=== PATIENT | female | born 1935 | race Hispanic/Latino ===

== ENCOUNTER 2017-12-14 16:46 | Inpatient (IN) | payer MEDICARE, OTHER ==
[2017-12-14] MEDS ORDERED: Sodium Chloride 0.9% 500 ML IV STA (17:43)
[2017-12-14] MEDS ORDERED: Pantoprazole 40 MG in Sodium Chloride 0.9% 100 ML IVPB SCH (17:45)
--- NOTE | 2017-12-14 17:45 | ED PDOC ---
HPI: General Adult Time Seen by Provider: 12/14/17 17:22 Chief Complaint (Nursing): Abdominal Pain Chief Complaint (Provider): Black stool History Per: Patient History/Exam Limitations: no limitations Onset/Duration Of Symptoms: Days (2 weeks) Current Symptoms Are (Timing): Still Present Additional Complaint(s): Pt. with black stool for 2 weeks. Getting off and on light-headed. No chest pain, dyspnea, weakness, cough. No abd pain. No fever. Ambulating with no issues. Past Medical History Reviewed: Nursing Documentation, Vital Signs Vital Signs: Last Vital Signs Temp 98.6 F 12/14/17 17:01 Pulse 94 H 12/14/17 17:01 Resp 16 12/14/17 17:01 BP 116/76 12/14/17 17:01 Pulse Ox 96 12/14/17 18:41 - Medical History PMH: HTN - Family History Family History: States: Unknown Family Hx - Living Arrangements Living Arrangements: With Family - Social History Alcohol: None Drugs: Denies - Home Medications Home Medications: Ambulatory Orders Medication Instructions Recorded Calcium Carbonate/Vitamin D3 1 tab PO BID 12/14/17 [Caltrate 600 Plus D3 Tablet] Furosemide [Lasix] 40 mg PO DAILY 12/14/17 Isosorbide Mononitrate [Ismo] 20 mg PO Q12H 12/14/17 Letrozole [Femara] 2.5 mg PO DAILY 12/14/17 Propranolol HCl [Propranolol HCl 80 mg PO Q12H 12/14/17 ER] Ramipril [Altace] 5 mg PO DAILY 12/14/17 Rosuvastatin Calcium [Crestor] 10 mg PO DAILY 12/14/17 - Allergies Allergies/Adverse Reactions: Allergies Allergy/AdvReac Type Severity Reaction Status Date / Time No Known Allergies Allergy Verified 12/14/17 17:01 Review of Systems ROS Statement: Except As Marked, All Systems Reviewed And Found Negative Gastrointestinal: Positive for: Melena Neurological: Positive for: Dizziness Physical Exam - Reviewed Nursing Documentation Reviewed: Yes Vital Signs Reviewed: Yes - Physical Exam Appears: Positive for: Uncomfortable Head Exam: Positive for: ATRAUMATIC, NORMAL INSPECTION, NORMOCEPHALIC Skin: Positive for: Normal Color, Warm, DRY Eye Exam: Positive for: EOMI, Normal appearance, PERRL ENT: Positive for: Normal ENT Inspection Neck: Positive for: Normal, Painless ROM Cardiovascular/Chest: Positive for: Regular Rate, Rhythm Respiratory: Positive for: CNT, Normal Breath Sounds Gastrointestinal/Abdominal: Positive for: Normal Exam, Bowel Sounds, Soft. Negative for: Tenderness Back: Positive for: Normal Inspection. Negative for: L CVA Tenderness, R CVA Tenderness Rectal: Positive for: Black Stool. Negative for: Tenderness Extremity: Positive for: Normal ROM. Negative for: Tenderness, Pedal Edema Neurologic/Psych: Positive for: Alert, Oriented - Laboratory Results Result Diagrams: 12/14/17 18:15 12/14/17 18:15 Interpretation Of Abn Labs: 10.8 hg; 42 bun - ECG ECG: Positive for: Interpreted By Me, Viewed By Me ECG Rhythm: Positive for: Sinus Rhythm, Nonspecific Changes O2 Sat by Pulse Oximetry: 96 Pulse Ox Interpretation: Normal - Radiology X-Ray: Read By Radiologist X-Ray Interpretation: No Acute Disease - Progress ED Course And Treament: 1926: Stable. Spoke with Tyson for Dr. Polanco. Will admit tele obs. GI consult. AAOx3. - Critical Care Total Time (In Min): 30 Documented Critical Care: Time excludes all time spent performint seperately billable procedures Disposition - Clinical Impression Clinical Impression: GI bleed - Patient ED Disposition Is Patient to be Admitted: Yes - Disposition Disposition Time: 19:28 Condition: FAIR - Pt Status Changed To: Hospital Disposition Of: Observation - POA Present On Arrival: None
--- NOTE | 2017-12-14 18:31 | RAD ---
HISTORY: rectal bleeding COMPARISON: 08/29/2013 FINDINGS: LUNGS: No active pulmonary disease. PLEURA: No significant pleural effusion identified, no pneumothorax apparent. CARDIOVASCULAR: Sternotomy wires. Normal heart size. OSSEOUS STRUCTURES: No significant abnormalities. VISUALIZED UPPER ABDOMEN: Normal. OTHER FINDINGS: None. IMPRESSION: No active disease.
[2017-12-14 18:32] LABS: BASO # 0.1 K/uL (0.0-0.2); BASO % 0.9 % (0.0-2.0); EOS # 0.5 K/uL (0.0-0.7); HEMOGLOBIN 10.8 g/dL (12.0-16.0); LYMPH # 2.5 K/uL (1.0-4.3); LYMPH % 25.3 % (20.0-40.0); MEAN CELL VOLUME 87.4 fl (81.0-99.0); MEAN CORPUSCULAR HEMOGLOBIN 29.1 pg (27.0-31.0); MEAN CORPUSCULAR HGB CONC 33.3 g/dL (33.0-37.0); MEAN PLATELET VOLUME 8.3 fl (7.2-11.7); MONO # 0.4 K/uL (0.0-0.8); MONO % 4.3 % (0.0-10.0); NEUT # 6.4 K/uL (1.8-7.0); NEUT % 64.5 % (50.0-75.0); NRBC % 0.1 % (0.0-0.0); RBC 3.7 Mil/uL (3.80-5.20); RED CELL DISTRIBUTION WIDTH 13.5 % (11.5-14.5); WHITE BLOOD COUNT 9.9 K/uL (4.8-10.8)
[2017-12-14 18:49] LABS: TROPONIN I 0.018 ng/mL (0.00-0.120)
[2017-12-14 18:52] LABS: ALB/GLOB RATIO 1.5 (1.0-2.1); ALBUMIN 3.9 g/dL (3.5-5.0); CALCIUM 10.3 mg/dL (8.4-10.2)
[2017-12-14 19:08] LABS: INR 1.1 (0.9-1.2); PARTIAL THROMBOPLASTIN TIME 27.5 Seconds (25.6-37.1); PROTHROMBIN TIME 12.2 Seconds (9.8-13.1)
[2017-12-14] MEDS ORDERED: PROPRANOLOL HCL 80 MG PO SCH (20:30)
[2017-12-14] MEDS: Pantoprazole 40 MG in Sodium Chloride 0.9% 100 ML IVPB SCH (23:58)
[2017-12-15] MEDS: Pantoprazole 40 MG in Sodium Chloride 0.9% 100 ML IVPB SCH (05:32)
[2017-12-15 06:36] LABS: BASO # 0.1 K/uL (0.0-0.2); BASO % 1.1 % (0.0-2.0); EOS # 0.5 K/uL (0.0-0.7); EOS % 5.8 % (0.0-4.0); HEMOGLOBIN 8.5 g/dL (12.0-16.0); LYMPH # 2.3 K/uL (1.0-4.3); LYMPH % 26.5 % (20.0-40.0); MEAN CELL VOLUME 87.6 fl (81.0-99.0); MEAN CORPUSCULAR HEMOGLOBIN 29.4 pg (27.0-31.0); MEAN CORPUSCULAR HGB CONC 33.5 g/dL (33.0-37.0); MEAN PLATELET VOLUME 8.4 fl (7.2-11.7); MONO # 0.6 K/uL (0.0-0.8); MONO % 6.7 % (0.0-10.0); NEUT # 5.2 K/uL (1.8-7.0); NEUT % 59.9 % (50.0-75.0); NRBC % 0.1 % (0.0-0.0); RBC 2.89 Mil/uL (3.80-5.20); RED CELL DISTRIBUTION WIDTH 13.2 % (11.5-14.5); WHITE BLOOD COUNT 8.7 K/uL (4.8-10.8)
[2017-12-15 06:47] LABS: ALB/GLOB RATIO 1.2 (1.0-2.1); ALBUMIN 2.9 g/dL (3.5-5.0); CALCIUM 8.8 mg/dL (8.4-10.2)
[2017-12-15] MEDS ORDERED: Patient's Own Med (Calcium Carbonate/Vitamin D3 [Caltrate 600 Plus D3 Tablet] 1 TAB) PO SCH (09:00)
--- NOTE | 2017-12-15 09:37 | CP.PCM.PCO ---
Physician Communication Note - Physician Communication Note Physician Communication Note: admitted to this provider in error. pt of dr zaidi, service changed
--- NOTE | 2017-12-15 09:42 | CP.PCM.HP ---
History of Present Illness - History of Present Illness History of Present Illness: Pt. with black/bloody stool for 2 weeks. Getting off and on light-headed. No chest pain, dyspnea, weakness, cough. No abd pain. No fever. Ambulating with no issues. PMH: Hypertension Acute [place] 03/02/1985 Prosthetic AV 06/08/2004 CA Breast 2013 Hyperlipidemia Hgb: 8.5 GI consult Fidel Mccormack Present on Admission - Present on Admission Any Indicators Present on Admission: No Past Patient History - Past Medical History & Family History Past Medical History?: Yes - Past Social History Smoking Status: Never Smoked - CARDIAC Hx Cardiac Disorders: Yes Hx Congestive Heart Failure: Yes Hx Heart Attack: Yes Hx Hypercholesterolemia: Yes Hx Hypertension: Yes Other/Comment: Prosthetic AV 2003 - PULMONARY Hx Respiratory Disorders: No - NEUROLOGICAL Hx Neurological Disorder: No - HEENT Hx HEENT Problems: No - RENAL Hx Chronic Kidney Disease: No - ENDOCRINE/METABOLIC Hx Endocrine Disorders: No - HEMATOLOGICAL/ONCOLOGICAL Hx Blood Disorders: No - INTEGUMENTARY Hx Dermatological Problems: No - MUSCULOSKELETAL/RHEUMATOLOGICAL Hx Musculoskeletal Disorders: No Hx Falls: No - GASTROINTESTINAL Hx Gastrointestinal Disorders: No - GENITOURINARY/GYNECOLOGICAL Hx Genitourinary Disorders: Yes Other/Comment: breast cancer with radiation treatment - PSYCHIATRIC Hx Psychophysiologic Disorder: No Hx Substance Use: No - SURGICAL HISTORY Hx Surgeries: Yes Hx Mastectomy: Yes (right) Hx Open Heart Surgery: Yes - ANESTHESIA Hx Anesthesia: Yes Hx Anesthesia Reactions: No Hx Malignant Hyperthermia: No Has any member of the family had a problem w/ anesthesia?: No Meds Allergies/Adverse Reactions: Allergies Allergy/AdvReac Type Severity Reaction Status Date / Time No Known Allergies Allergy Verified 12/14/17 17:01 Results - Vital Signs Recent Vital Signs: Last Vital Signs Temp 98.6 F 12/15/17 08:00 Pulse 67 12/15/17 08:00 Resp 20 12/15/17 08:00 BP 94/60 L 12/15/17 09:01 Pulse Ox 96 12/15/17 08:00 - Labs Result Diagrams: 12/15/17 05:00 12/15/17 05:00 Labs: Laboratory Results - last 24 hr 12/14/17 12/14/17 12/14/17 18:15 18:15 18:15 WBC 9.9 RBC 3.70 L Hgb 10.8 L D Hct 32.3 L MCV 87.4 MCH 29.1 MCHC 33.3 RDW 13.5 Plt Count 244 MPV 8.3 Neut % (Auto) 64.5 Lymph % (Auto) 25.3 [place] % (Auto) 4.3 Eos % (Auto) 5.0 H Baso % (Auto) 0.9 Neut # 6.4 Lymph # 2.5 [place] # 0.4 Eos # 0.5 Baso # 0.1 PT INR APTT Sodium 138 Potassium 3.4 L Chloride 96 L Carbon Dioxide 31 H Anion Gap 14 BUN 42 H Creatinine 1.2 Est GFR ( Amer) 52 Est GFR (Non-Af Amer) 43 Random Glucose 120 H Calcium 10.3 H Total Bilirubin 0.5 AST 19 ALT 30 Alkaline Phosphatase 55 Troponin I 0.0180 Total Protein 6.6 Albumin 3.9 Globulin 2.7 Albumin/Globulin Ratio 1.5 Stool Occult Blood Blood Type A POSITIVE Antibody Screen Negative BBK History Checked No verified bt 12/14/17 12/14/17 12/15/17 18:15 19:00 05:00 WBC 8.7 RBC 2.89 L Hgb 8.5 L D Hct 25.3 L MCV 87.6 MCH 29.4 MCHC 33.5 RDW 13.2 Plt Count 179 MPV 8.4 Neut % (Auto) 59.9 Lymph % (Auto) 26.5 [place] % (Auto) 6.7 Eos % (Auto) 5.8 H Baso % (Auto) 1.1 Neut # 5.2 Lymph # 2.3 [place] # 0.6 Eos # 0.5 Baso # 0.1 PT 12.2 INR 1.1 APTT 27.5 Sodium Potassium Chloride Carbon Dioxide Anion Gap BUN Creatinine Est GFR ( Amer) Est GFR (Non-Af Amer) Random Glucose Calcium Total Bilirubin AST ALT Alkaline Phosphatase Troponin I Total Protein Albumin Globulin Albumin/Globulin Ratio Stool Occult Blood Positive H Blood Type Antibody Screen BBK History Checked 12/15/17 05:00 WBC RBC Hgb Hct MCV MCH MCHC RDW Plt Count MPV Neut % (Auto) Lymph % (Auto) [place] % (Auto) Eos % (Auto) Baso % (Auto) Neut # Lymph # [place] # Eos # Baso # PT INR APTT Sodium 138 Potassium 3.1 L Chloride 103 Carbon Dioxide 26 Anion Gap 12 BUN 29 H Creatinine 1.1 Est GFR ( Amer) 57 Est GFR (Non-Af Amer) 47 Random Glucose 114 H Calcium 8.8 Total Bilirubin 0.4 AST 19 ALT 24 Alkaline Phosphatase 43 Troponin I Total Protein 5.4 L Albumin 2.9 L D Globulin 2.5 Albumin/Globulin Ratio 1.2 Stool Occult Blood Blood Type Antibody Screen BBK History Checked Assessment & Plan (1) GI bleed Assessment and Plan: ? CA colon ? Metastatic lesion ( CA Breast ? polyp Status: Acute (2) S/P AVR (aortic valve replacement) Status: Acute (3) Breast CA Status: Acute (4) Myocardial infarct, old Status: Acute (5) Essential (primary) hypertension Status: Acute (6) Mixed hyperlipidemia Status: Acute
[2017-12-15] MEDS ORDERED: Potassium Chloride 20 mEq/15 ml LIQ UD PO ONE (12:50)
[2017-12-15 20:54] LABS: BLOOD UREA NITROGEN 16 mg/dl (7-17); CALCIUM 9.2 mg/dL (8.4-10.2); GFR AFRICAN-AMERICAN > 60; GFR NON-AFRICAN AMERICAN 53
--- NOTE | 2017-12-16 02:17 | CON ---
DATE: 12/15/2017 REFERRING PHYSICIANS: Olaf Langston MD and Dr. Sosa. REASON FOR CONSULTATION: Melena and anemia. HISTORY OF PRESENT ILLNESS: This is a pleasant 82-year-old female with history on and off of two weeks of black stools. Patient has no pain, no nausea, no vomiting, no reflux, no heartburn. No use of NSAIDs. Currently, lying in bed comfortable in no apparent distress. PAST MEDICAL HISTORY: As above. PAST SURGICAL HISTORY: As above. MEDICATIONS: Have been reviewed. REVIEW OF SYSTEMS: All other systems have been reviewed and negative apart from the HPI. PHYSICAL EXAMINATION: VITAL SIGNS: During the hospital, grossly unremarkable. GENERAL: This is a pleasant elderly appearing female, lying comfortably in bed in no apparent distress. HEENT: Head normocephalic, atraumatic. Eyes, pupils equally reactive to light bilaterally. No conjunctival pallor or icterus. NECK: Supple. Normal range of motion. No lymphadenopathy appreciated. LUNGS: Coarse breath sounds bilaterally. HEART: S1 and S2. Regular rate and rhythm. No murmurs appreciated. ABDOMEN: Soft and nontender. Bowel sounds present. No rebound. No guarding. RECTAL: Deferred. EXTREMITIES: Pulses present bilaterally. SKIN: Warm, dry, and intact. NEUROLOGIC: A and O x3. LABORATORY DATA: All labs have been reviewed. WBC 8.7, hemoglobin 8.5, now 10.8, hematocrit of 25.3. Potassium 3.1, BUN 29, creatinine 1.1. ASSESSMENT AND PLAN: This is an 82-year-old female with melena and anemia. Plan for endoscopy in the morning. Protonix twice a day. Correct electrolytes. Thank you for the consult. Jimy Mcclure MD/ PhD cc: Dr. Sosa.
[2017-12-16 06:47] LABS: BLOOD UREA NITROGEN 11 mg/dl (7-17); CALCIUM 9.2 mg/dL (8.4-10.2); GFR AFRICAN-AMERICAN > 60; GFR NON-AFRICAN AMERICAN 60
[2017-12-16 08:23] LABS: HEMOGLOBIN 8.8 g/dL (12.0-16.0); MEAN CELL VOLUME 89.7 fl (81.0-99.0); MEAN CORPUSCULAR HGB CONC 32.3 g/dL (33.0-37.0); RBC 3.05 Mil/uL (3.80-5.20); RED CELL DISTRIBUTION WIDTH 13.5 % (11.5-14.5); WHITE BLOOD COUNT 6.4 K/uL (4.8-10.8)
--- NOTE | 2017-12-16 09:20 | PQF GENQUE ---
Dr. Mcclure, Please clarify the type of anemia: if known after the work up is completed: i.e. Blood loss anemia, acute Blood loss anemia, chronic Chronic anemia Deficiency anemia (please specify type) Due to/in/with antineoplastic chemotherapy Due to/in/with chronic kidney disease Due to/in/with kidney failure Due to/in/with neoplastic disease Iron deficiency anemia Macrocytic anemia Microcytic anemia Normocytic anemia Postoperative blood loss anemia Pernicious anemia Other anemia (please specify) Clinically unable to determine Unknown H/H:10.8/32.3->8.5/25.3->8.8/27.3 H and P: Pt. with black/bloody stool for 2 weeks. Getting off and on light- headed. Dxs. include: (1) GI bleed Assessment and Plan: ? CA colon ? Metastatic lesion ( CA Breast ? polyp Status: Acute GI consult: 82-year-old female with melena and anemia. This form is a permanent part of the medical record Clarification of your documentation is requested to better reflect the severity of illness and intensity of treatment of your patient. Indicators present Gi blood loss anemia, acute [] Specify: [] [] Specify: [] [] Specify: [] [] Specify: [] Location in the medical record that reflects the above clinical findings: [] Treatment Provided: [] PHYSICIAN'S RESPONSE Based on your medical judgment of the clinical indicators outlined above please clarify the following: [] Practitioner response [] If unable to determine, please check the box, sign and date. Present On Admission (POA) Indicator: [] Present at the time of admission [] Not present at the time of admission [] Clinically Undetermined In responding to this query, please exercise your independent professional judgment. The fact that a question is asked does not imply that any particular answer is desired or expected. Thank you for your clarification on this documentation. If you have any questions please call. * Thank you, Reena Guevara RN ext. #[phone] MTDD
--- NOTE | 2017-12-16 09:46 | PQF GENQUE ---
Dr. Mcclure, Clarification of the following Clinical Finding: "Correct Electrolytes"; please document a corresponding lissett(rafael) Clinical lab: K:3.4-->3.1->3.8 12/15: GI consult: This is an 82-year-old female with melena and anemia. Plan for endoscopy in the morning. Protonix twice a day. Correct electrolytes. 12/15: Potassium Chloride 10 meq IV Q1hr. and 20 meq PO once This form is a permanent part of the medical record Clarification of your documentation is requested to better reflect the severity of illness and intensity of treatment of your patient. Indicators present [] Specify: [] [] Specify: [] [] Specify: [] [] Specify: [] Location in the medical record that reflects the above clinical findings: [] Treatment Provided: [] PHYSICIAN'S RESPONSE Based on your medical judgment of the clinical indicators outlined above please clarify the following: [] Practitioner response [] If unable to determine, please check the box, sign and date. Present On Admission (POA) Indicator: [] Present at the time of admission [] Not present at the time of admission [] Clinically Undetermined In responding to this query, please exercise your independent professional judgment. The fact that a question is asked does not imply that any particular answer is desired or expected. Thank you for your clarification on this documentation. If you have any questions please call. * Thank you, Reena Guevara RN ext. #[phone] MTDD
--- NOTE | 2017-12-16 09:56 | PQF GENQUE ---
Dr. Langston, Please specify the type and acuity of heart failure in your progress notes: versus a hx. of CHF hx. and not a current condition 1. TYPE: Combined systolic and diastolic Heart failure with reduced ejection fraction and diastolic dysfunction Diastolic HFpEF Systolic yes HFrEF Left heart failure Right heart failure Right heart failure due to left heart failure High Output failure End stage heart failure Other (please specify) Clinically unable to determine Unknown 2. ACUITY: Acute in the past has had bouts of CHF -- resolved as out patient Chronic Acute on chronic Other (please specify) Clinically unable to determine Unknown CXR: Impression: No active disease. H and P: Hx Congestive Heart Failure: Yes In the past not POA Lasix 40 mg po daily This form is a permanent part of the medical record Clarification of your documentation is requested to better reflect the severity of illness and intensity of treatment of your patient. Indicators present [] Specify: [ Acute systolic left CHF in the past not POA [] Specify: [] [] Specify: [] [] Specify: [] Location in the medical record that reflects the above clinical findings: [] Treatment Provided: [] PHYSICIAN'S RESPONSE Based on your medical judgment of the clinical indicators outlined above please clarify the following: [xxx Practitioner response [] If unable to determine, please check the box, sign and date. Present On Admission (POA) Indicator: [] Present at the time of admission [] Not present at the time of admission NOt POA [] Clinically Undetermined In responding to this query, please exercise your independent professional judgment. The fact that a question is asked does not imply that any particular answer is desired or expected. Thank you for your clarification on this documentation. If you have any questions please call. * Thank you, Reena Guevara RN ext. #[phone] MTDD
[2017-12-16] MEDS ORDERED: Lactated Ringer's 1,000 ML IV ONE (10:13)
[2017-12-16] MEDS ORDERED: Lidocaine 2% MPF (5 ml) Inj ONE (10:32)
[2017-12-16] MEDS ORDERED: Propofol 10 mg/ml Inj (20 ML) ONE (10:32)
--- NOTE | 2017-12-16 11:36 | CP.PCM.DIS ---
Provider - Provider Date of Admission: 12/15/17 12:51 Attending physician: Olaf Langston MD Primary care physician: Sri Langston Consults: DR Mccormack Time Spent in preparation of Discharge (in minutes): 33 Diagnosis - Discharge Diagnosis (1) Duodenal ulcer with hemorrhage Status: Acute (2) GI bleed Status: Acute (3) S/P AVR (aortic valve replacement) Status: Acute (4) Breast CA Status: Acute (5) Myocardial infarct, old Status: Acute (6) Essential (primary) hypertension Status: Acute (7) Mixed hyperlipidemia Status: Acute Hospital Course - Lab Results Lab Results: Most Recent Lab Values WBC 6.4 K/uL (4.8-10.8) 12/16/17 05:50 RBC 3.05 Mil/uL (3.80-5.20) L 12/16/17 05:50 Hgb 8.8 g/dL (12.0-16.0) L 12/16/17 05:50 Hct 27.3 % (34.0-47.0) L 12/16/17 05:50 MCV 89.7 fl (81.0-99.0) D 12/16/17 05:50 MCH 29.0 pg (27.0-31.0) 12/16/17 05:50 MCHC 32.3 g/dL (33.0-37.0) L 12/16/17 05:50 RDW 13.5 % (11.5-14.5) 12/16/17 05:50 Plt Count 157 K/uL (130-400) 12/16/17 05:50 MPV 8.4 fl (7.2-11.7) 12/15/17 05:00 Neut % (Auto) 59.9 % (50.0-75.0) 12/15/17 05:00 Lymph % (Auto) 26.5 % (20.0-40.0) 12/15/17 05:00 [place] % (Auto) 6.7 % (0.0-10.0) 12/15/17 05:00 Eos % (Auto) 5.8 % (0.0-4.0) H 12/15/17 05:00 Baso % (Auto) 1.1 % (0.0-2.0) 12/15/17 05:00 Neut # 5.2 K/uL (1.8-7.0) 12/15/17 05:00 Lymph # 2.3 K/uL (1.0-4.3) 12/15/17 05:00 [place] # 0.6 K/uL (0.0-0.8) 12/15/17 05:00 Eos # 0.5 K/uL (0.0-0.7) 12/15/17 05:00 Baso # 0.1 K/uL (0.0-0.2) 12/15/17 05:00 PT 12.2 Seconds (9.8-13.1) 12/14/17 18:15 INR 1.1 (0.9-1.2) 12/14/17 18:15 APTT 27.5 Seconds (25.6-37.1) 12/14/17 18:15 Sodium 142 mmol/l (132-148) 12/16/17 05:50 Potassium 3.8 MMOL/L (3.6-5.0) 12/16/17 05:50 Chloride 108 mmol/L (98-107) H 12/16/17 05:50 Carbon Dioxide 26 mmol/L (22-30) 12/16/17 05:50 Anion Gap 12 (10-20) 12/16/17 05:50 BUN 11 mg/dl (7-17) 12/16/17 05:50 Creatinine 0.9 mg/dl (0.7-1.2) 12/16/17 05:50 Est GFR ( Amer) > 60 12/16/17 05:50 Est GFR (Non-Af Amer) 60 12/16/17 05:50 Random Glucose 101 mg/dL (65-105) 12/16/17 05:50 Calcium 9.2 mg/dL (8.4-10.2) 12/16/17 05:50 Total Bilirubin 0.4 mg/dl (0.2-1.3) 12/15/17 05:00 AST 19 U/L (14-36) 12/15/17 05:00 ALT 24 U/L (9-52) 12/15/17 05:00 Alkaline Phosphatase 43 U/L (38-126) 12/15/17 05:00 Troponin I 0.0180 ng/mL (0.00-0.120) 12/14/17 18:15 Total Protein 5.4 G/DL (6.3-8.2) L 12/15/17 05:00 Albumin 2.9 g/dL (3.5-5.0) L D 12/15/17 05:00 Globulin 2.5 gm/dL (2.2-3.9) 12/15/17 05:00 Albumin/Globulin Ratio 1.2 (1.0-2.1) 12/15/17 05:00 Stool Occult Blood Positive (NEGATIVE) H 12/14/17 19:00 Blood Type A POSITIVE 12/14/17 18:15 Antibody Screen Negative 12/14/17 18:15 BBK History Checked No verified bt 12/14/17 18:15 - Hospital Course Hospital Course: Pt. with black/bloody stool for 2 weeks. Getting off and on light-headed. No chest pain, dyspnea, weakness, cough. No abd pain. No fever. Ambulating with no issues. PMH: Hypertension Acute [place] 03/02/1985 Prosthetic AV 06/08/2004 CA Breast 2013 Hyperlipidemia Hgb: 8.5 GI consult Fidel Mccormack Upper endoscopy: Duodenal ulcer PT d/laura on Protonix 40mg BID Carafate Discharge Exam - Head Exam Head Exam: ATRAUMATIC, NORMAL INSPECTION, NORMOCEPHALIC Discharge Plan - Discharge Medications Prescriptions: Sucralfate [Carafate] 1 gm PO QID #120 dose Pantoprazole Sodium [Protonix] 40 mg PO BID #60 ect - Follow Up Plan Condition: GOOD
[2017-12-16 12:56] VITALS: RESP 20
--- NOTE | 2017-12-16 14:36 | PQF GENQUE ---
Dr. Langston, Etiology of GI Bleed: if known? i.e. due to Duodenal Ulcer : YES GI Bleed secondary to Duodenal ulcer D/C Summary: Upper endoscopy: Duodenal ulcer Discharge Diagnosis include : (1) Duodenal ulcer with hemorrhage Status: Acute (2) GI bleed Status: Acute This form is a permanent part of the medical record Clarification of your documentation is requested to better reflect the severity of illness and intensity of treatment of your patient. Indicators present [] Specify: [] [] Specify: [] [] Specify: [] [] Specify: [] Location in the medical record that reflects the above clinical findings: [] Treatment Provided: [] PHYSICIAN'S RESPONSE Based on your medical judgment of the clinical indicators outlined above please clarify the following: [] Practitioner response [] If unable to determine, please check the box, sign and date. Present On Admission (POA) Indicator: [] Present at the time of admission [] Not present at the time of admission [] Clinically Undetermined In responding to this query, please exercise your independent professional judgment. The fact that a question is asked does not imply that any particular answer is desired or expected. Thank you for your clarification on this documentation. If you have any questions please call. * Thank you, Reena Guevara RN ext. #[phone] MTDD
[2017-12-16 16:17] VITALS: BP 133/96; PULSE 99; TEMP 97.3; O2SAT 100
--- NOTE | 2017-12-16 18:32 | CARD ---
APPROVED REPORT EKG Measurement Heart [id number] <Conclusion> Sinus rhythm with premature atrial complexes with aberrant conduction Incomplete left bundle branch block ST & T wave abnormality, consider lateral ischemia Abnormal ECG
== END 2017-12-16 17:09 | disposition home or self-care (01) | DRG 378 ==
LOC: H.ER 16:46 → H.ERHOLD 19:26 → H.TEL 22:55 → OBSVTOIN 12-15 12:51
PROVIDERS: ADMIT Internal Medicine Cardiovascular Disease; ATTEND Internal Medicine Cardiovascular Disease
PROC: 0DB68ZX Excision of Stomach, Via Natural or Artificial Opening Endoscopic, Diagnostic (ICD-10-PCS; 2017-12-16)
PROC: 0DB98ZX Excision of Duodenum, Via Natural or Artificial Opening Endoscopic, Diagnostic (ICD-10-PCS; 2017-12-16)
PROC: 0DB98ZX Excision of Duodenum, Via Natural or Artificial Opening Endoscopic, Diagnostic (ICD-10-PCS; principal; 2017-12-16 10:30)
DX: K26.4 Chronic or unspecified duodenal ulcer with hemorrhage (principal); D62 Acute posthemorrhagic anemia; E78.2 Mixed hyperlipidemia; Z85.3 Personal history of malignant neoplasm of breast; I25.2 Old myocardial infarction; Z95.2 Presence of prosthetic heart valve

== ENCOUNTER 2018-09-29 16:54 | Inpatient (IN) | payer MEDICARE, OTHER ==
[2018-09-29] MEDS ORDERED: Sodium Chloride 0.9% 1,000 ML IV STA (17:15)
--- NOTE | 2018-09-29 17:21 | ED PDOC ---
HPI: General Adult Time Seen by Provider: 09/29/18 17:08 Chief Complaint (Nursing): ENT Problem History Per: Patient (Difficulty swallowing x 2 weeks assoc with decreased PO intake and 20 lb weight loss. Denies abd pain. Denies vomiting. Denies fever.) Past Medical History Vital Signs: Last Vital Signs Temp 96.7 F L 09/29/18 17:03 Pulse 113 H 09/29/18 17:03 Resp 18 09/29/18 17:03 BP 151/83 H 09/29/18 17:03 Pulse Ox 99 09/29/18 17:03 - Medical History PMH: CAD, CHF, HTN, Hypercholesterolemia Denies: Chronic Kidney Disease - Family History Family History: States: Unknown Family Hx - Home Medications Home Medications: Ambulatory Orders Medication Instructions Recorded Furosemide [Lasix] 40 mg PO DAILY 09/29/18 Propranolol [Inderal LA] 80 mg PO BID 09/29/18 RX: Isosorbide Dinitrate [Isordil] 20 mg PO BID 09/29/18 RX: Letrozole [Femara] 2.5 mg PO DAILY 09/29/18 Ramipril [Altace] 5 mg DAILY 09/29/18 Rosuvastatin Calcium [Crestor] 10 mg PO DAILY 09/29/18 - Allergies Allergies/Adverse Reactions: Allergies Allergy/AdvReac Type Severity Reaction Status Date / Time No Known Allergies Allergy Verified 09/29/18 17:03 Review of Systems ROS Statement: Except As Marked, All Systems Reviewed And Found Negative Constitutional: Positive for: Weight loss Respiratory: Positive for: Cough Gastrointestinal: Positive for: Other (Difficulty swallowing) Physical Exam - Reviewed Nursing Documentation Reviewed: Yes Vital Signs Reviewed: Yes - Physical Exam Appears: Positive for: Non-toxic, No Acute Distress Head Exam: Positive for: ATRAUMATIC, NORMAL INSPECTION, NORMOCEPHALIC Skin: Positive for: Normal Color, Warm, DRY Eye Exam: Positive for: EOMI, Normal appearance, PERRL ENT: Positive for: Normal ENT Inspection, Other (No masses) Neck: Positive for: Normal (No masses), Painless ROM Cardiovascular/Chest: Positive for: Regular Rate, Rhythm Respiratory: Positive for: CNT, Normal Breath Sounds Gastrointestinal/Abdominal: Positive for: Normal Exam, Soft Back: Positive for: Normal Inspection Extremity: Positive for: Normal ROM Neurologic/Psych: Positive for: Alert, Oriented. Negative for: Motor/Sensory Deficits - Laboratory Results Result Diagrams: 09/30/18 05:15 09/30/18 05:15 - ECG O2 Sat by Pulse Oximetry: 99 Disposition - Clinical Impression Clinical Impression: Esophageal mass, Hypokalemia - Patient ED Disposition Is Patient to be Admitted: Transfer of Care - Disposition Disposition: Transfer of Care Disposition Time: 19:00 Condition: FAIR Patient Signed Over To: Dereck Jacob
[2018-09-29 17:48] LABS: BASO # 0.1 K/uL (0.0-0.2); BASO % 0.8 % (0.0-2.0); EOS # 0.1 K/uL (0.0-0.7); EOS % 1.6 % (0.0-4.0); HEMOGLOBIN 14.8 g/dL (12.0-16.0); LYMPH # 2.8 K/uL (1.0-4.3); LYMPH % 31.5 % (20.0-40.0); MEAN CELL VOLUME 75.4 fl (81.0-99.0); MEAN CORPUSCULAR HEMOGLOBIN 25.2 pg (27.0-31.0); MEAN CORPUSCULAR HGB CONC 33.3 g/dL (33.0-37.0); MEAN PLATELET VOLUME 7.9 fl (7.2-11.7); MONO % 11.6 % (0.0-10.0); NEUT # 4.9 K/uL (1.8-7.0); NEUT % 54.5 % (50.0-75.0); RBC 5.88 Mil/uL (3.80-5.20); RED CELL DISTRIBUTION WIDTH 20.7 % (11.5-14.5); WHITE BLOOD COUNT 8.9 K/uL (4.8-10.8)
[2018-09-29 18:32] LABS: ALB/GLOB RATIO 1.2 (1.0-2.1); ALT/SGPT 25 U/L (9-52); AST/SGOT 29 U/L (14-36); BLOOD UREA NITROGEN 20 mg/dl (7-17); CALCIUM 9.8 mg/dL (8.4-10.2); GFR NON-AFRICAN AMERICAN 60
[2018-09-29] MEDS ORDERED: Potassium Chloride 20 mEq ER Tab PO ONE (18:33)
--- NOTE | 2018-09-29 18:33 | CT ---
Date of service: 09/29/2018 PROCEDURE: CT Chest without contrast HISTORY: Difficulty swallowing COMPARISON: Comparison is made to the previous study dated 07/25/2013 TECHNIQUE: Contiguous axial images were obtained through the chest without intravenous contrast enhancement. Sagittal and coronal reconstructions were performed. Radiation dose: Total exam DLP = 154.1 mGy-cm. This CT exam was performed using one or more of the following dose reduction techniques: Automated exposure control, adjustment of the mA and/or kV according to patient size, and/or use of iterative reconstruction technique. FINDINGS: LUNGS: There is consolidation/mass at the central portion of the right lung extending to the right hilum and right mediastinum. Reticular opacities noted at the anterior peripheral portion of the right upper lobe. There is moderate to severe narrowing of the proximal right upper lobe bronchus. Mild bronchiectasis noted in the central portion of the lungs bilaterally more prominent on the right. MEDIASTINUM: Large soft tissue mass lesion noted in the right hilum right mediastinum extending to the subcarinal region and compressing and severely narrowing the mid portion of the esophagus. The differential consideration includes bronchial cancer versus less likely exophytic esophageal tumor. Mild dilatation of the proximal esophagus noted. Mild narrowing of the distal trachea and [id number] narrowing of the proximal right main bronchus. The distal portion of the esophagus is patent. Normal sized heart. The main pulmonary artery is mildly enlarged. Mildly enlarged precarinal lymph node seen. The thoracic aorta is ectatic and tortuous. There are foci of atherosclerotic calcifications seen in the thoracic aorta. There is possible prior aortic valve repair. PLEURA: No pleural fluid. No pneumothorax. BONES: No fracture. No destructive lesion. UPPER ABDOMEN: There is nodular mild enlargement of the left adrenal gland noted. OTHER FINDINGS: None. IMPRESSION: Large mass lesion in the right hilum and subcarinal region compressing and severely narrowing the mid portion of the esophagus. The differential consideration includes lung/bronchial cancer versus less likely an esophageal neoplasm. The above-mentioned mass noted also at the central perihilar region of the right lung.
[2018-09-29] MEDS: Potassium CL 10 MEQ/50 ML 50 ML IVPB SCH ×2 (18:38→20:04)
--- NOTE | 2018-09-29 18:51 | CT ---
Date of service: 09/29/2018.. PROCEDURE: CT NECK WITHOUT CONTRAST... HISTORY: Difficulty swallowing. COMPARISON: Correlation made with concurrent CT scan of the chest. TECHNIQUE: CT of the neck without intravenous contrast. Coronal and sagittal reformats generated.. Radiation dose: Total exam DLP = 352.17 mGy-cm. This CT exam was performed using one or more of the following dose reduction techniques: Automated exposure control, adjustment of the mA and/or kV according to patient size, and/or use of iterative reconstruction technique.. FINDINGS: There is a large soft tissue mass density within the posterior mediastinum that is contiguous -inseparable from the right lateral margin of the esophagus which is markedly compressed.. This could represent a large conglomeration of adenopathy or possibly a mass arising from the esophagus extending laterally into the mediastinum with mediastinal adenopathy. Mass also appears to extend into or from the right hilum.. There also appears to be a right upper lobe mass component contiguous with the hilar lesion.. There is also moderate compression of the trachea at this level with probable compression of the posterior aspect distal right mainstem bronchus.. Mass extends into the sub carinal region and moore anteriorly into the right paratracheal region. More discrete smaller to apparent medium-sized lymph nodes in the left paratracheal and AP window region. Note also made of a discrete a separate somewhat heterogeneous elliptical shaped soft tissue mass density that is located in the right parasagittal upper mediastinum and is contiguous with the posterior inferior aspect right lobe thyroid gland and most likely represents substernal extension of enlarged right lobe of the thyroid. There is also slight enlargement of the inferior posterior inferior aspect left lobe thyroid gland as well.. There are several discrete calcifications with scattered focal ill-defined areas of low attenuation. There is also a low-attenuation lesion in the right lobe thyroid gland. The nasopharynx is unremarkable. Oral cavity and contents also unremarkable. The vallecula is relatively symmetric. Free margin of the epiglottis exhibits normal configuration as do the aryepiglottic folds. Pyriform sinuses are patent. There is a tiny left-sided anterior laryngocele. The true vocal cords are midline and apposed to one another possibly due to Valsalva during image acquisition. Parotid and submandibular glands unremarkable. IMPRESSION There is a large soft tissue mass density within the posterior mediastinum that is contiguous -inseparable from the right lateral margin of the esophagus which is markedly compressed.. This could represent a large conglomeration of adenopathy or possibly a mass arising from the esophagus extending laterally into the mediastinum with mediastinal adenopathy. Mass also appears to extend into or from the right hilum.. There also appears to be a right upper lobe mass component contiguous with the hilar lesion.. There is also moderate compression of the trachea at this level with probable compression of the posterior aspect distal right mainstem bronchus.. Mass extends into the sub carinal region and moore anteriorly into the right paratracheal region. More discrete smaller to apparent medium-sized lymph nodes in the left paratracheal and AP window region. Please refer to concurrent CT scan of the chest for additional details Note also made of a discrete a separate somewhat heterogeneous elliptical shaped soft tissue mass density that is located in the right parasagittal upper mediastinum and is contiguous with the posterior inferior aspect right lobe thyroid gland and most likely represents substernal extension of enlarged right lobe of the thyroid. There is also slight enlargement of the inferior posterior inferior aspect left lobe thyroid gland as well.. There are several discrete calcifications with scattered focal ill-defined areas of low attenuation. There is also a low-attenuation lesion in the right lobe thyroid gland.
--- NOTE | 2018-09-29 18:53 | RAD ---
Date of service: 09/29/2018 HISTORY: Difficulty swallowing COMPARISON: 12/14/2017 TECHNIQUE: Chest PA and lateral FINDINGS: LUNGS: Hyperinflation, manifestations of COPD. No active pulmonary disease. PLEURA: No significant pleural effusion identified. No pneumothorax apparent. CARDIOVASCULAR: No aortic atherosclerotic calcification present. Aortic valve prosthesis identified. No radiographic findings to suggest acute or significant cardiovascular disease. Incidental Finding(s): Postoperative changes related to sternotomy. No pulmonary vascular congestion. OSSEOUS STRUCTURES: No significant abnormalities. VISUALIZED UPPER ABDOMEN: Normal. OTHER FINDINGS: None. IMPRESSION: No active disease. No significant interval change compared to the prior examination(s).
--- NOTE | 2018-09-29 19:10 | ED PDOC ---
- Laboratory Results Result Diagrams: 09/29/18 17:42 09/29/18 18:05 - ECG O2 Sat by Pulse Oximetry: 99 Pulse Ox Interpretation: Normal Medical Decision Making Medical Decision MakinPM --Patient endorsed to me by Dr. Cole pending radiology readings for CT's and re-eval 645PM --CT's demonstrate large mass pushing on esophagus, possibly lung CA --Patient has a history of breast CA, possibly now metastasized --EKG shows similar morphology to previous EKG in November but deeper TW inversions and depressions, reflecting low potassium --Currently correcting potassium with PO and IV medication, will add on Mag 715PM --Case endorsed to Dr. Roselyn Humphries, covering for Dr. Langston Disposition - Clinical Impression Clinical Impression: Esophageal mass, Hypokalemia - POA Present On Arrival: None - Disposition Disposition: Admitted as In-Patient Disposition Time: 20:00 Condition: FAIR
[2018-09-30 06:49] LABS: BASO # 0.1 K/uL (0.0-0.2); BASO % 1.1 % (0.0-2.0); EOS # 0.2 K/uL (0.0-0.7); EOS % 2.3 % (0.0-4.0); HEMOGLOBIN 13.1 g/dL (12.0-16.0); LYMPH # 1.9 K/uL (1.0-4.3); MEAN CELL VOLUME 76.2 fl (81.0-99.0); MEAN CORPUSCULAR HEMOGLOBIN 24.8 pg (27.0-31.0); MEAN CORPUSCULAR HGB CONC 32.5 g/dL (33.0-37.0); MEAN PLATELET VOLUME 8.2 fl (7.2-11.7); MONO # 0.7 K/uL (0.0-0.8); MONO % 10.1 % (0.0-10.0); NEUT # 4.2 K/uL (1.8-7.0); NEUT % 59.5 % (50.0-75.0); RBC 5.3 Mil/uL (3.80-5.20); RED CELL DISTRIBUTION WIDTH 20.6 % (11.5-14.5); WHITE BLOOD COUNT 7.1 K/uL (4.8-10.8)
[2018-09-30 06:58] LABS: ALB/GLOB RATIO 1.2 (1.0-2.1); ALBUMIN 3.5 g/dL (3.5-5.0); ALT/SGPT 26 U/L (9-52); AST/SGOT 25 U/L (14-36); BLOOD UREA NITROGEN 14 mg/dl (7-17); CALCIUM 9.7 mg/dL (8.4-10.2); GFR NON-AFRICAN AMERICAN > 60
--- NOTE | 2018-09-30 09:14 | CARD ---
APPROVED REPORT Date of service: 09/29/2018 EKG Measurement Heart [id number] <Conclusion> Normal sinus rhythm Incomplete left bundle branch block Marked ST abnormality, possible inferolateral subendocardial injury Prolonged QT Abnormal ECG
--- NOTE | 2018-09-30 09:18 | CARD ---
APPROVED REPORT Date of service: 09/29/2018 EKG Measurement Heart [id number] <Conclusion> Sinus rhythm with sinus arrhythmia Left ventricular hypertrophy with QRS widening T wave abnormality, consider inferolateral ischemia Abnormal ECG
[2018-09-30] MEDS ORDERED: Potassium Chloride 20 mEq/15 ml LIQ UD PO ONE (10:13)
--- NOTE | 2018-09-30 18:33 | CP.PCM.HP ---
History of Present Illness - History of Present Illness History of Present Illness: This 82-year-old female was brought in to the emergency room by her daughter with severe weight loss and inability to swallow. The patient has been a long-standing smoker and has had chronic COPD. She has had a malignancy of the right breast for which she has undergone mastectomy followed by radiation more than 6 years back. She regularly sees an oncologist in [facility]. Most recent visit was one month back. The patient denies any vomiting or diarrhea. She gives history of having required a statin for elevated cholesterol levels and antihypertensives. Physical examination shows an elderly pleasant lady who is a macerated. She reports having lost approximately 20 pounds over last 3 months. Her heart rate was 74 bpm regular and her blood pressure was 110/70 mmHg. Her jugular venous pressure was not elevated there was no edema over lower ex limited. There was evidence of right mastectomy. The apex was palpable in the fifth space the first and second heart sounds are normal there was no murmur no gallop there were coarse crepitations. Her abdomen was soft liver and spleen are not palpable. Her electrocardiogram showed sinus rhythm with widespread ST-T abnormalities that were also seen as far back as electro-cardiogram of November of this year. The CT scan of the chest shows a large mass in the posterior mediastinum extending into the right hilum. There is also a mass involving the right lung. Her lab data shows a hemoglobin and hematocrit of 14.8 g and 44.3% respectively. Her potassium was 2.4 mg/L at admission and this morning it was 3 mg/L. Oral potassium was administered. The rest of her labs were noted. 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 History of breast malignancy. COPD. The patient has denied any prior cardiac illness. Sternotomy sutures were evident on the chest x-ray so I will review her history regarding thoracotomy with her. The patient will require a biopsy of this mass which I will discuss with her primary care physician. Present on Admission - Present on Admission Any Indicators Present on Admission: No Past Patient History - Past Medical History & Family History Past Medical History?: Yes - Past Social History Smoking Status: Never Smoked - CARDIAC Hx Congestive Heart Failure: Yes Hx Hypercholesterolemia: Yes Hx Hypertension: Yes - PULMONARY Hx Respiratory Disorders: No - NEUROLOGICAL Hx Neurological Disorder: No - HEENT Hx HEENT Problems: No - RENAL Hx Chronic Kidney Disease: No - ENDOCRINE/METABOLIC Hx Endocrine Disorders: No - HEMATOLOGICAL/ONCOLOGICAL Hx Blood Disorders: No - INTEGUMENTARY Hx Dermatological Problems: No - MUSCULOSKELETAL/RHEUMATOLOGICAL Hx Musculoskeletal Disorders: No Hx Falls: No - GASTROINTESTINAL Hx Gastrointestinal Disorders: No - GENITOURINARY/GYNECOLOGICAL Hx Genitourinary Disorders: Yes Other/Comment: breast cancer with radiation treatment - PSYCHIATRIC Hx Psychophysiologic Disorder: No Hx Substance Use: No - SURGICAL HISTORY Hx Surgeries: Yes Hx Mastectomy: Yes (right) Hx Open Heart Surgery: Yes (valve replacement) - ANESTHESIA Hx Anesthesia: Yes Hx Anesthesia Reactions: No Hx Malignant Hyperthermia: No Meds Allergies/Adverse Reactions: Allergies Allergy/AdvReac Type Severity Reaction Status Date / Time No Known Allergies Allergy Verified 09/29/18 17:03 Results - Vital Signs Recent Vital Signs: Last Vital Signs Temp 98.0 F 09/30/18 16:06 Pulse 68 09/30/18 17:28 Resp 16 09/30/18 16:06 BP 94/58 L 09/30/18 17:28 Pulse Ox 97 09/30/18 16:06 - Labs Result Diagrams: 09/30/18 05:15 09/30/18 05:15 Labs: Laboratory Results - last 24 hr 09/29/18 09/29/18 09/30/18 18:05 19:36 05:15 WBC RBC Hgb Hct MCV MCH MCHC RDW Plt Count MPV Neut % (Auto) Lymph % (Auto) Forest % (Auto) Eos % (Auto) Baso % (Auto) Neut # (Auto) Lymph # (Auto) Forest # (Auto) Eos # (Auto) Baso # (Auto) Sodium 132 136 Potassium 2.4 L* D 3.0 L Chloride 82 L 92 L Carbon Dioxide 39 H 36 H Anion Gap 13 11 BUN 20 H 14 Creatinine 0.9 0.8 Est GFR ( Amer) > 60 > 60 Est GFR (Non-Af Amer) 60 > 60 Random Glucose 135 H 107 H Calcium 9.8 9.7 Phosphorus 2.9 Magnesium 2.2 Total Bilirubin 0.8 0.7 AST 29 25 ALT 25 26 Alkaline Phosphatase 85 68 Troponin I 0.0420 Total Protein 7.3 6.4 Albumin 4.0 3.5 Globulin 3.3 2.9 Albumin/Globulin Ratio 1.2 1.2 09/30/18 05:15 WBC 7.1 RBC 5.30 H Hgb 13.1 Hct 40.4 MCV 76.2 L MCH 24.8 L MCHC 32.5 L RDW 20.6 H Plt Count 202 MPV 8.2 Neut % (Auto) 59.5 Lymph % (Auto) 27.0 Forest % (Auto) 10.1 H Eos % (Auto) 2.3 Baso % (Auto) 1.1 Neut # (Auto) 4.2 Lymph # (Auto) 1.9 Forest # (Auto) 0.7 Eos # (Auto) 0.2 Baso # (Auto) 0.1 Sodium Potassium Chloride Carbon Dioxide Anion Gap BUN Creatinine Est GFR ( Amer) Est GFR (Non-Af Amer) Random Glucose Calcium Phosphorus Magnesium Total Bilirubin AST ALT Alkaline Phosphatase Troponin I Total Protein Albumin Globulin Albumin/Globulin Ratio
[2018-10-01 07:25] LABS: BLOOD UREA NITROGEN 14 mg/dl (7-17); CALCIUM 9.8 mg/dL (8.4-10.2); GFR NON-AFRICAN AMERICAN > 60
--- NOTE | 2018-10-02 09:25 | CP.PCM.PN ---
Subjective - Date & Time of Evaluation Date of Evaluation: 10/02/18 Time of Evaluation: 09:18 - Subjective Subjective: Pt admitted with 1 Month Hx of inability to swallow solid food x 1 month 25 lb weight loss in 2 months Pt has Hx of CA Breast w/Right Mastectomy 2012 being treated in [facility] by Dr Benson Had Radiation Tx CT Scan now reveals Lung mass impinging on the esophagus Explained all this to the patient also told her that we need a biopsy of the mass Dr Manuel has been called on consult PMH: CA Breast w/ Mastectomy [address] Benson ([facility]) Radiation Tx AVR 2003 GI Bleed-Duodenal ulcer 12/08 Hypertension Hyperlipidemia Objective - Vital Signs/Intake and Output Vital Signs (last 24 hours): Temp Pulse Resp BP Pulse Ox 98.1 F 69 20 102/70 96 10/02/18 08:17 10/02/18 08:17 10/02/18 08:17 10/02/18 08:17 10/02/18 08:17 - Medications Medications: Current Medications Acetaminophen (Tylenol 325mg Tab) 650 mg PO Q4 PRN PRN Reason: Pain, Mild (1-3) Last Admin: 10/01/18 22:46 Dose: 650 mg Isosorbide Dinitrate (Isordil) 20 mg PO BID [facility] Last Admin: 10/01/18 18:31 Dose: 20 mg Propranolol HCl (Inderal) 40 mg PO BID [facility] Last Admin: 10/01/18 18:30 Dose: 40 mg Ramipril (Altace) 5 mg PO DAILY [facility] Last Admin: 10/01/18 09:51 Dose: 5 mg - Labs Labs: 09/30/18 05:15 10/01/18 05:30 - Constitutional Appears: No Acute Distress - Respiratory Exam Respiratory Exam: NORMAL BREATHING PATTERN - Cardiovascular Exam Cardiovascular Exam: REGULAR RHYTHM Assessment and Plan (1) Pulmonary mass Assessment & Plan: mass is impinging on the esophagus most likely CA mets from Breast CA Pulmonary consult called for Bronchoscopy / Biopsy Status: Acute (2) Esophageal obstruction Assessment & Plan: From Pulmonary Mass Status: Acute (3) Breast CA Assessment & Plan: Pt had Right Mastectomy in 2012 Followed by radiation Tx Status: Acute (4) Duodenal ulcer with hemorrhage Assessment & Plan: November 2017 Status: Acute (5) Essential (primary) hypertension Status: Acute (6) GI bleed Assessment & Plan: 2* to duodenal ulcer 12/08 Status: Acute (7) Mixed hyperlipidemia Status: Acute (8) S/P AVR (aortic valve replacement) Assessment & Plan: 2003 Status: Acute
[2018-10-03 05:28] LABS: INR 0.9; PROTHROMBIN TIME 10.2 Seconds (9.8-13.1)
[2018-10-03 05:31] LABS: PARTIAL THROMBOPLASTIN TIME 27.5 Seconds (25.6-37.1)
--- NOTE | 2018-10-03 08:23 | PQF ---
PROVIDER RESPONSE TEXT: Patient has Dysphagia. REVIEWER QUERY TEXT: Clarification of Clinical Diagnostic Findings Please clarify if the pt. has aphasia or dysphagia or both? 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 Nurses Notes:Nutritional Assessment: Chewing/Swallowing Difficulty Speech Therapy Screening: Dysphagia (Swallowing Disturbance) The patient's Clinical Indicators include: - Query created by: Reena Guevara on 10/02/2018 9:57 AM Electronically signed by: Franklyn Humphries MD 10/03/2018 8:20 AM
[2018-10-03 10:27] LABS: HEMOGLOBIN 13.2 g/dL (12.0-16.0); MEAN CELL VOLUME 79.5 fl (81.0-99.0); MEAN CORPUSCULAR HEMOGLOBIN 24.8 pg (27.0-31.0); MEAN CORPUSCULAR HGB CONC 31.2 g/dL (33.0-37.0); RBC 5.32 Mil/uL (3.80-5.20); RED CELL DISTRIBUTION WIDTH 22.2 % (11.5-14.5); WHITE BLOOD COUNT 9.2 K/uL (4.8-10.8)
[2018-10-03 10:48] LABS: BLOOD UREA NITROGEN 12 mg/dl (7-17); CALCIUM 10.1 mg/dL (8.4-10.2); GFR NON-AFRICAN AMERICAN > 60
--- NOTE | 2018-10-03 11:03 | CP.PCM.CON ---
History of Present Illness - History of Present Illness History of Present Illness: This 72-year-old female was admitted to the emergency room where she presented with approximately two-week history of inability to swallow and a 20 pound weight loss. She denied abdominal pain or vomiting as well as diarrhea. There was no chest pain present. 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 These findings are highly suggestive of malignancy of, either pulmonary or GI. She denies any chest pain but does admit to occasional cough without any sputum production or hemoptysis. Past Patient History - Past Medical History & Family History Past Medical History?: Yes - Past Social History Smoking Status: Never Smoked - CARDIAC Hx Congestive Heart Failure: Yes Hx Hypercholesterolemia: Yes Hx Hypertension: Yes - PULMONARY Hx Respiratory Disorders: No - NEUROLOGICAL Hx Neurological Disorder: No - HEENT Hx HEENT Problems: No - RENAL Hx Chronic Kidney Disease: No - ENDOCRINE/METABOLIC Hx Endocrine Disorders: No - HEMATOLOGICAL/ONCOLOGICAL Hx Blood Disorders: No - INTEGUMENTARY Hx Dermatological Problems: No - MUSCULOSKELETAL/RHEUMATOLOGICAL Hx Musculoskeletal Disorders: No Hx Falls: No - GASTROINTESTINAL Hx Gastrointestinal Disorders: No - GENITOURINARY/GYNECOLOGICAL Hx Genitourinary Disorders: Yes Other/Comment: breast cancer with radiation treatment - PSYCHIATRIC Hx Psychophysiologic Disorder: No Hx Substance Use: No - SURGICAL HISTORY Hx Surgeries: Yes Hx Mastectomy: Yes (right) Hx Open Heart Surgery: Yes (valve replacement) - ANESTHESIA Hx Anesthesia: Yes Hx Anesthesia Reactions: No Hx Malignant Hyperthermia: No Meds Allergies/Adverse Reactions: Allergies Allergy/AdvReac Type Severity Reaction Status Date / Time No Known Allergies Allergy Verified 09/29/18 17:03 - Medications Medications: Current Medications Acetaminophen (Tylenol 325mg Tab) 650 mg PO Q4 PRN PRN Reason: Pain, Mild (1-3) Last Admin: 10/01/18 22:46 Dose: 650 mg Isosorbide Dinitrate (Isordil) 20 mg PO BID [facility] Last Admin: 10/03/18 08:59 Dose: 20 mg Propranolol HCl (Inderal) 40 mg PO BID [facility] Last Admin: 10/03/18 09:00 Dose: 40 mg Ramipril (Altace) 5 mg PO DAILY [facility] Last Admin: 10/03/18 09:00 Dose: 5 mg Physical Exam - Additional Findings Additional findings: Thin female who is seated upright in her bed in no acute distress. There is no cough noted during the examination. No shortness of breath or sputum production. The pharynx is pink and mucous membranes are moist. Neck supple or trachea is midline. No neck vein distention or carotid bruit. No palpable lymphadenopathy. No dullness on chest percussion. Both hemidiaphragms appear to be displaced caudally. Evidence of right mastectomy is noted. Breath sounds are diminished bilaterally. Scattered rhonchi are appreciated in the dependent zones of both lungs. Rare dry rales in the lower lobes. No audible wheezing or bronchial breath sounds. Heart sounds are somewhat distant and rhythm is regular. No murmur was heard. Abdomen is soft and nontender with normal bowel sounds. No palpable HSM. Results - Vital Signs Recent Vital Signs: Last Vital Signs Temp 97.9 F 10/03/18 09:19 Pulse 88 10/03/18 09:19 Resp 18 10/03/18 09:19 BP 105/68 10/03/18 09:19 Pulse Ox 97 10/03/18 09:19 - Labs Result Diagrams: 10/03/18 09:43 10/03/18 09:43 Labs: Laboratory Results - last 24 hr 10/03/18 10/03/18 10/03/18 05:04 09:43 09:43 WBC 9.2 RBC 5.32 H Hgb 13.2 Hct 42.3 MCV 79.5 L D MCH 24.8 L MCHC 31.2 L RDW 22.2 H Plt Count 190 PT 10.2 INR 0.9 APTT 27.5 Sodium 136 Potassium 4.1 Chloride 99 Carbon Dioxide 27 Anion Gap 14 BUN 12 Creatinine 0.8 Est GFR ( Amer) > 60 Est GFR (Non-Af Amer) > 60 Random Glucose 80 Calcium 10.1 Assessment & Plan (1) Esophageal obstruction Status: Acute Priority: High (2) Pulmonary mass Status: Acute Priority: High - Assessment and Plan (Free Text) Plan: Flexible bronchoscopy is scheduled for tomorrow morning. - Date & Time Date: 10/03/18 Time: 11:03
--- NOTE | 2018-10-03 11:14 | CP.PCM.PN ---
Subjective - Date & Time of Evaluation Date of Evaluation: 10/03/18 Time of Evaluation: 10:00 - Subjective Subjective: Doing fairly well able to swallow liquids and pureed foods, pudding, jello Dr Manuel to see pt today possible bronchoscopy tomorrow Objective - Vital Signs/Intake and Output Vital Signs (last 24 hours): Temp Pulse Resp BP Pulse Ox 97.9 F 88 18 105/68 97 10/03/18 09:19 10/03/18 09:19 10/03/18 09:19 10/03/18 09:19 10/03/18 09:19 - Medications Medications: Current Medications Acetaminophen (Tylenol 325mg Tab) 650 mg PO Q4 PRN PRN Reason: Pain, Mild (1-3) Last Admin: 10/01/18 22:46 Dose: 650 mg Isosorbide Dinitrate (Isordil) 20 mg PO BID [facility] Last Admin: 10/03/18 08:59 Dose: 20 mg Propranolol HCl (Inderal) 40 mg PO BID [facility] Last Admin: 10/03/18 09:00 Dose: 40 mg Ramipril (Altace) 5 mg PO DAILY [facility] Last Admin: 10/03/18 09:00 Dose: 5 mg - Labs Labs: 10/03/18 09:43 10/03/18 09:43 PT 10.2 Seconds (9.8-13.1) 10/03/18 05:04 INR 0.9 10/03/18 05:04 APTT 27.5 Seconds (25.6-37.1) 10/03/18 05:04 Assessment and Plan (1) Pulmonary mass Status: Acute (2) Esophageal obstruction Status: Acute (3) Breast CA Status: Acute (4) Duodenal ulcer with hemorrhage Status: Acute (5) Essential (primary) hypertension Status: Acute (6) GI bleed Status: Acute (7) Mixed hyperlipidemia Status: Acute (8) S/P AVR (aortic valve replacement) Status: Acute
[2018-10-04] MEDS ORDERED: EPINEPHrine 1 mg/ml (1:1000) Inj ONE (07:18)
[2018-10-04] MEDS ORDERED: Lidocaine 1% Inj (20ml) ONE (07:19)
[2018-10-04] MEDS ORDERED: Sodium Chloride 0.9% 20 ML IV ONE (07:19)
[2018-10-04] MEDS ORDERED: Lidocaine 2% Jelly (5 ml) TOP ONE (07:19)
[2018-10-04] MEDS ORDERED: Midazolam 2 MG/2 ML VIAL ONE (07:28)
[2018-10-04] MEDS ORDERED: Etomidate 20 mg/10ml Inj IV ONE (07:28)
[2018-10-04] MEDS ORDERED: Succinylcholine 200 mg/10 ml Inj IV ONE (07:29)
[2018-10-04] MEDS ORDERED: Propofol 10 mg/ml Inj (20 ML) ONE (07:29)
[2018-10-04] MEDS ORDERED: Benzocaine/Butamben/Tetracai 14-2-2% TOP Spray TOP ONE (07:29)
[2018-10-04] MEDS ORDERED: Lactated Ringer's 500 ML IV ONE ×3 (08:10→08:55)
[2018-10-04] MEDS ORDERED: Lidocaine 1% Inj (20ml) TP ONE (08:10)
[2018-10-04] MEDS ORDERED: Lidocaine 2% GEL TOP ONE (08:10)
[2018-10-04] MEDS ORDERED: Lidocaine 2% Jelly (30 ml) ONE (08:17)
[2018-10-04] MEDS ORDERED: EPINEPHrine 1 mg/ml (1:1000) Inj IV ONE (08:20)
--- NOTE | 2018-10-04 10:39 | RAD ---
Date of service: 10/04/2018 PROCEDURE: CHEST RADIOGRAPH, 1 VIEW HISTORY: S/P Broncgoscopy COMPARISON: 09/29/2018 FINDINGS: LUNGS: No consolidation Interstitial lung marking borderline prominent PLEURA: No pneumothorax or pleural fluid seen. CARDIOVASCULAR: There is presence of aortic atherosclerotic calcification on x-ray. Tortuous thoracic aorta-similar appearing aortic valve prosthesis 3 noted. Heart size probably top-normal. OSSEOUS STRUCTURES: Midline sternotomy. Bilateral shoulder arthrosis VISUALIZED UPPER ABDOMEN: Normal. OTHER FINDINGS: None. IMPRESSION: No pneumothorax. No consolidation/atelectasis noted Other findings as above.
[2018-10-04] MEDS: Lactated Ringer's 1,000 ML IV SCH ×3 (11:30→23:00)
--- NOTE | 2018-10-04 11:34 | CP.PCM.PN ---
Subjective - Date & Time of Evaluation Date of Evaluation: 10/04/18 Time of Evaluation: 11:32 - Subjective Subjective: Bronchoscopy was done this morning Pt feels well f/u CXR no Pneumothorax Results to follow Will ask DR Herb Humphries to see pt in the event this is Metastatic CA Objective - Vital Signs/Intake and Output Vital Signs (last 24 hours): Temp Pulse Resp BP Pulse Ox 96.9 F L 60 18 104/68 100 10/04/18 10:55 10/04/18 10:55 10/04/18 10:55 10/04/18 10:55 10/04/18 10:55 Intake and Output: 10/04/18 10/04/18 06:59 18:59 Intake Total 50 Balance 50 - Medications Medications: Current Medications Acetaminophen (Tylenol 325mg Tab) 650 mg PO Q4 PRN PRN Reason: Pain, Mild (1-3) Last Admin: 10/01/18 22:46 Dose: 650 mg Lactated Ringer's (Lactated Ringer's) 1,000 mls @ 125 mls/hr IV .Q8H [facility] Isosorbide Dinitrate (Isordil) 20 mg PO BID [facility] Last Admin: 10/03/18 17:25 Dose: 20 mg Propranolol HCl (Inderal) 40 mg PO BID [facility] Last Admin: 10/04/18 07:40 Dose: 40 mg Ramipril (Altace) 5 mg PO DAILY [facility] Last Admin: 10/03/18 09:00 Dose: 5 mg - Labs Labs: 10/03/18 09:43 10/03/18 09:43 PT 10.2 Seconds (9.8-13.1) 10/03/18 05:04 INR 0.9 10/03/18 05:04 APTT 27.5 Seconds (25.6-37.1) 10/03/18 05:04 Assessment and Plan (1) Pulmonary mass Status: Acute (2) Esophageal obstruction Status: Acute (3) Breast CA Status: Acute (4) Duodenal ulcer with hemorrhage Status: Acute (5) Essential (primary) hypertension Status: Acute (6) GI bleed Status: Acute (7) Mixed hyperlipidemia Status: Acute (8) S/P AVR (aortic valve replacement) Status: Acute
--- NOTE | 2018-10-04 11:46 | PQF ---
PROVIDER RESPONSE TEXT: S stated in my note the GI bleed/duodenal ulcer were in 11/2017 REVIEWER QUERY TEXT: Clarification of Clinical Diagnostic Findings Please clarify if the following conditions are PMH or current diagnoses for this encounter: 1. Duodenal ulcer with hemorrhage 2. GI bleed H and P: PMH: long-standing smoker and has had chronic COPD. She has had a malignancy of the right br east for which she has undergone mastectomy followed by radiation more than 6 years back. 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 H istory of breast malignancy. COPD. The patient has denied any prior cardiac illness. Sternotomy sutur es were evident on the chest x-ray so I will review her hxregarding thoracotomy with her. The patient will require a bx of this mass 10/03 Attending progress note includes: Duodenal ulcer with hemorrhage Status: Acute and GI bleed Status: Acute The patient's Clinical Indicators include: - Query created by: Reena Guevara on 10/04/2018 8:22 AM Electronically signed by: Olaf Langston MD 10/04/2018 11:42 AM
--- NOTE | 2018-10-04 13:03 | CP.PCM.CON ---
History of Present Illness - History of Present Illness History of Present Illness: Pt had a bronchoscopy today and the right hilar mass was biopsied. Pathology is awaited. Will see patient as soon as path rep[ort is in. Past Patient History - Past Medical History & Family History Past Medical History?: Yes - Past Social History Smoking Status: Never Smoked - CARDIAC Hx Congestive Heart Failure: Yes Hx Hypercholesterolemia: Yes Hx Hypertension: Yes - PULMONARY Hx Respiratory Disorders: No - NEUROLOGICAL Hx Neurological Disorder: No - HEENT Hx HEENT Problems: No - RENAL Hx Chronic Kidney Disease: No - ENDOCRINE/METABOLIC Hx Endocrine Disorders: No - HEMATOLOGICAL/ONCOLOGICAL Hx Blood Disorders: No - INTEGUMENTARY Hx Dermatological Problems: No - MUSCULOSKELETAL/RHEUMATOLOGICAL Hx Musculoskeletal Disorders: No Hx Falls: No - GASTROINTESTINAL Hx Gastrointestinal Disorders: No - GENITOURINARY/GYNECOLOGICAL Hx Genitourinary Disorders: Yes Other/Comment: breast cancer with radiation treatment - PSYCHIATRIC Hx Psychophysiologic Disorder: No Hx Substance Use: No - SURGICAL HISTORY Hx Surgeries: Yes Hx Mastectomy: Yes (right) Hx Open Heart Surgery: Yes (valve replacement) - ANESTHESIA Hx Anesthesia: Yes Hx Anesthesia Reactions: No Hx Malignant Hyperthermia: No Meds Allergies/Adverse Reactions: Allergies Allergy/AdvReac Type Severity Reaction Status Date / Time No Known Allergies Allergy Verified 09/29/18 17:03 - Medications Medications: Current Medications Acetaminophen (Tylenol 325mg Tab) 650 mg PO Q4 PRN PRN Reason: Pain, Mild (1-3) Last Admin: 10/01/18 22:46 Dose: 650 mg Lactated Ringer's (Lactated Ringer's) 1,000 mls @ 125 mls/hr IV .Q8H [facility] Isosorbide Dinitrate (Isordil) 20 mg PO BID [facility] Last Admin: 10/03/18 17:25 Dose: 20 mg Propranolol HCl (Inderal) 40 mg PO BID [facility] Last Admin: 10/04/18 07:40 Dose: 40 mg Ramipril (Altace) 5 mg PO DAILY [facility] Last Admin: 10/03/18 09:00 Dose: 5 mg Results - Vital Signs Recent Vital Signs: Last Vital Signs Temp 97.6 F 10/04/18 11:59 Pulse 64 10/04/18 11:59 Resp 20 10/04/18 11:59 BP 105/67 10/04/18 11:59 Pulse Ox 96 10/04/18 11:59 - Labs Result Diagrams: 10/03/18 09:43 10/03/18 09:43
[2018-10-05] MEDS: Lactated Ringer's 1,000 ML IV SCH (09:55)
--- NOTE | 2018-10-05 10:05 | CP.PCM.CON ---
History of Present Illness - History of Present Illness History of Present Illness: This is a 83 yrs old female who was brought to the ER by her daughter because of a weight loss of 30 lbs and inability to swallow. This started about a month ago but has progressively gotten worse. She has a h/o smoking for a long time.and has chronic COPD. 6 yrs ago she had a breast cancer for which she had a mastectomy followed by RT. She is remission as far as that is concerened. In the ER she had a CT scan which showed a large posterior mediastinal mass and a right hilar mass. The mediastinal mass erodes into the esophagus.There is a right upper lobe mass which extends to the hilar mass. . There is also a question of a thyroid mass with a substernal extension. She had a bronchoscopy done yesterday,biopsies taken, and now pathology result are pending Past Patient History - Past Medical History & Family History Past Medical History?: Yes - Past Social History Smoking Status: Never Smoked - CARDIAC Hx Congestive Heart Failure: Yes Hx Hypercholesterolemia: Yes Hx Hypertension: Yes - PULMONARY Hx Respiratory Disorders: No - NEUROLOGICAL Hx Neurological Disorder: No - HEENT Hx HEENT Problems: No - RENAL Hx Chronic Kidney Disease: No - ENDOCRINE/METABOLIC Hx Endocrine Disorders: No - HEMATOLOGICAL/ONCOLOGICAL Hx Blood Disorders: No - INTEGUMENTARY Hx Dermatological Problems: No - MUSCULOSKELETAL/RHEUMATOLOGICAL Hx Musculoskeletal Disorders: No Hx Falls: No - GASTROINTESTINAL Hx Gastrointestinal Disorders: No - GENITOURINARY/GYNECOLOGICAL Hx Genitourinary Disorders: Yes Other/Comment: breast cancer with radiation treatment - PSYCHIATRIC Hx Psychophysiologic Disorder: No Hx Substance Use: No - SURGICAL HISTORY Hx Surgeries: Yes Hx Mastectomy: Yes (right) Hx Open Heart Surgery: Yes (valve replacement) - ANESTHESIA Hx Anesthesia: Yes Hx Anesthesia Reactions: No Hx Malignant Hyperthermia: No Meds Allergies/Adverse Reactions: Allergies Allergy/AdvReac Type Severity Reaction Status Date / Time No Known Allergies Allergy Verified 09/29/18 17:03 - Medications Medications: Current Medications Acetaminophen (Tylenol 325mg Tab) 650 mg PO Q4 PRN PRN Reason: Pain, Mild (1-3) Last Admin: 10/04/18 17:32 Dose: 650 mg Lactated Ringer's (Lactated Ringer's) 1,000 mls @ 125 mls/hr IV .Q8H [facility] Last Admin: 10/05/18 09:55 Dose: 125 mls/hr Isosorbide Dinitrate (Isordil) 20 mg PO BID [facility] Last Admin: 10/05/18 09:54 Dose: 20 mg Propranolol HCl (Inderal) 40 mg PO BID [facility] Last Admin: 10/05/18 09:54 Dose: 40 mg Ramipril (Altace) 5 mg PO DAILY [facility] Last Admin: 10/05/18 09:53 Dose: 5 mg Physical Exam - Additional Findings Additional findings: Alert well oriented,thinly built neck; mass in right lobe of thyroid chest; Air entry decreased bilaterally with rhonchi bilaterally heart; Tachycardic but RSR Abd; soft, no mass, no h/s megaly Results - Vital Signs Recent Vital Signs: Last Vital Signs Temp 97.7 F 10/05/18 08:07 Pulse 71 10/05/18 09:54 Resp 18 10/05/18 08:07 BP 117/63 10/05/18 09:54 Pulse Ox 93 L 10/05/18 08:07 - Labs Result Diagrams: 10/03/18 09:43 10/03/18 09:43 Assessment & Plan - Assessment and Plan (Free Text) Assessment: impression; ?lung/esophageal mass mass Plan: plan; will discuss options with pt when the result of the biopsy is obtained
--- NOTE | 2018-10-05 10:34 | CP.PCM.PN ---
Subjective - Date & Time of Evaluation Date of Evaluation: 10/05/18 Time of Evaluation: 09:30 - Subjective Subjective: Bronchoscopy showed a friable, necrotic mass that had eroded through the Right main bronchus most likely malignancy Dr Humphries's note appreciated need to wait for the Biopsy results BP has been low will d/c antihypertensives and observe BP Pt anxious to go home explained the need for Bx results to determine our next course of action can swallow liquids / pudding / yogurt / pureed foods Objective - Vital Signs/Intake and Output Vital Signs (last 24 hours): Temp Pulse Resp BP Pulse Ox 97.7 F 71 18 117/63 93 L 10/05/18 08:07 10/05/18 08:07 10/05/18 08:07 10/05/18 08:07 10/05/18 08:07 - Medications Medications: Current Medications Acetaminophen (Tylenol 325mg Tab) 650 mg PO Q4 PRN PRN Reason: Pain, Mild (1-3) Last Admin: 10/04/18 17:32 Dose: 650 mg Isosorbide Dinitrate (Isordil) 20 mg PO BID [facility] Last Admin: 10/05/18 09:54 Dose: 20 mg - Labs Labs: 10/03/18 09:43 10/03/18 09:43 PT 10.2 Seconds (9.8-13.1) 10/03/18 05:04 INR 0.9 10/03/18 05:04 APTT 27.5 Seconds (25.6-37.1) 10/03/18 05:04 Assessment and Plan (1) Pulmonary mass Status: Acute (2) Esophageal obstruction Status: Acute (3) Breast CA Status: Acute (4) Duodenal ulcer with hemorrhage Status: Acute (5) Essential (primary) hypertension Status: Acute (6) GI bleed Status: Acute (7) Mixed hyperlipidemia Status: Acute (8) S/P AVR (aortic valve replacement) Status: Acute
--- NOTE | 2018-10-05 10:53 | CP.PCM.PN ---
Subjective - Date & Time of Evaluation Date of Evaluation: 10/05/18 Time of Evaluation: 10:42 - Subjective Subjective: Tolerated bronchoscopy well yesterday. Chest x-ray post-procedure showed well expanded lung smith bilaterally. Vital signs have been stable, no fever overnight. Path results may be available in the next 24-48 hours. Tolerating liquids and pureed foods. Awake, alert, appears relatively comfortable this morning. Neck is supple and trachea midline. No clubbing or cyanosis. No dullness on chest percussion. Coarse inspiratory rhonchi are heard over the RUL anteriorly. No audile wheezing or bronchial breath sounds. Heart sounds distant with regular rhythm and occasional PHB. Pathology pending. Neoplastic process likely to be bronchogenic primary. Markedly narrowed RUL division due to tumor mass. Secondary esophageal compression due to mediastinal spread? Objective - Vital Signs/Intake and Output Vital Signs (last 24 hours): Temp Pulse Resp BP Pulse Ox 97.7 F 71 18 117/63 93 L 10/05/18 08:07 10/05/18 08:07 10/05/18 08:07 10/05/18 08:07 10/05/18 08:07 - Medications Medications: Current Medications Acetaminophen (Tylenol 325mg Tab) 650 mg PO Q4 PRN PRN Reason: Pain, Mild (1-3) Last Admin: 10/04/18 17:32 Dose: 650 mg Isosorbide Dinitrate (Isordil) 20 mg PO BID [facility] Last Admin: 10/05/18 09:54 Dose: 20 mg - Labs Labs: 10/03/18 09:43 10/03/18 09:43 PT 10.2 Seconds (9.8-13.1) 10/03/18 05:04 INR 0.9 10/03/18 05:04 APTT 27.5 Seconds (25.6-37.1) 10/03/18 05:04 Assessment and Plan (1) Esophageal obstruction Status: Acute (2) Pulmonary mass Status: Acute
--- NOTE | 2018-10-06 08:57 | CP.PCM.PN ---
Subjective - Date & Time of Evaluation Date of Evaluation: 10/06/18 Time of Evaluation: 08:56 - Subjective Subjective: Initial pathology report: INFILTRATING CARCINOMA, ID pending. Will discuss with PMD before informing patient of diagnosis. The patient has now been informed and understands the need to wait for immunostaining to direct treatment. She is able to swallow liquids and pureed foodstuffs without vomiting. Initial cultures from bronchoscopy are 'normal stephen'. Vital signs are stable and she remains afebrile and well oxygenated. Objective - Vital Signs/Intake and Output Vital Signs (last 24 hours): Temp Pulse Resp BP Pulse Ox 97.4 F L 108 H 18 130/87 95 10/06/18 07:59 10/06/18 07:59 10/06/18 07:59 10/06/18 07:59 10/06/18 07:59 - Medications Medications: Current Medications Acetaminophen (Tylenol 325mg Tab) 650 mg PO Q4 PRN PRN Reason: Pain, Mild (1-3) Last Admin: 10/04/18 17:32 Dose: 650 mg Isosorbide Dinitrate (Isordil) 20 mg PO BID [facility] Last Admin: 10/05/18 17:12 Dose: 20 mg - Labs Labs: 10/03/18 09:43 10/03/18 09:43 PT 10.2 Seconds (9.8-13.1) 10/03/18 05:04 INR 0.9 10/03/18 05:04 APTT 27.5 Seconds (25.6-37.1) 10/03/18 05:04 Assessment and Plan (1) Esophageal obstruction Status: Acute (2) Pulmonary mass Status: Acute
--- NOTE | 2018-10-06 10:20 | CP.PCM.PN ---
Subjective - Date & Time of Evaluation Date of Evaluation: 10/06/18 Time of Evaluation: 10:20 - Subjective Subjective: Pathology report only says that the tumor is infiltrating carcinoma. origin and cellular type not yet known.Specimen has been sent for further studies. Objective - Vital Signs/Intake and Output Vital Signs (last 24 hours): Temp Pulse Resp BP Pulse Ox 97.4 F L 108 H 18 130/87 95 10/06/18 07:59 10/06/18 07:59 10/06/18 07:59 10/06/18 07:59 10/06/18 07:59 - Medications Medications: Current Medications Acetaminophen (Tylenol 325mg Tab) 650 mg PO Q4 PRN PRN Reason: Pain, Mild (1-3) Last Admin: 10/04/18 17:32 Dose: 650 mg Isosorbide Dinitrate (Isordil) 20 mg PO BID [facility] Last Admin: 10/06/18 09:24 Dose: 20 mg - Labs Labs: 10/03/18 09:43 10/03/18 09:43 PT 10.2 Seconds (9.8-13.1) 10/03/18 05:04 INR 0.9 10/03/18 05:04 APTT 27.5 Seconds (25.6-37.1) 10/03/18 05:04
--- NOTE | 2018-10-06 12:11 | CP.PCM.PN ---
Subjective - Date & Time of Evaluation Date of Evaluation: 10/06/18 Time of Evaluation: 11:00 - Subjective Subjective: PT informed of Biopsy report told her we need cell type and origin before any therapy can begin Pathology report: infiltrating carcinoma origin and cellular type not yet known. Specimen has been sent for further studies. Also spoke with daughter Carley informing her of all that is going on Objective - Vital Signs/Intake and Output Vital Signs (last 24 hours): Temp Pulse Resp BP Pulse Ox 97.4 F L 108 H 18 130/87 95 10/06/18 07:59 10/06/18 07:59 10/06/18 07:59 10/06/18 07:59 10/06/18 07:59 - Medications Medications: Current Medications Acetaminophen (Tylenol 325mg Tab) 650 mg PO Q4 PRN PRN Reason: Pain, Mild (1-3) Last Admin: 10/04/18 17:32 Dose: 650 mg Isosorbide Dinitrate (Isordil) 20 mg PO BID [facility] Last Admin: 10/06/18 09:24 Dose: 20 mg - Labs Labs: 10/03/18 09:43 10/03/18 09:43 PT 10.2 Seconds (9.8-13.1) 10/03/18 05:04 INR 0.9 10/03/18 05:04 APTT 27.5 Seconds (25.6-37.1) 10/03/18 05:04 Assessment and Plan (1) Pulmonary mass Status: Acute (2) Esophageal obstruction Status: Acute (3) Breast CA Status: Acute (4) Duodenal ulcer with hemorrhage Status: Acute (5) Essential (primary) hypertension Status: Acute (6) GI bleed Status: Acute (7) Mixed hyperlipidemia Status: Acute (8) S/P AVR (aortic valve replacement) Status: Acute
--- NOTE | 2018-10-07 08:17 | CP.PCM.PN ---
Subjective - Date & Time of Evaluation Date of Evaluation: 10/07/18 Time of Evaluation: 08:15 - Subjective Subjective: Pt is alert,well oriented, in no acute distress. neck; Supple , no adenopathy ? mass right lobe of thyroid. 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 Immunohistochemical stains and markeres are not yet aailable Objective - Vital Signs/Intake and Output Vital Signs (last 24 hours): Temp Pulse Resp BP Pulse Ox 97.7 F 95 H 18 122/66 97 10/07/18 08:11 10/07/18 08:11 10/07/18 08:11 10/07/18 08:11 10/07/18 08:11 - Medications Medications: Current Medications Acetaminophen (Tylenol 325mg Tab) 650 mg PO Q4 PRN PRN Reason: Pain, Mild (1-3) Last Admin: 10/04/18 17:32 Dose: 650 mg Isosorbide Dinitrate (Isordil) 20 mg PO BID [facility] Last Admin: 10/06/18 16:48 Dose: 20 mg - Labs Labs: 10/03/18 09:43 10/03/18 09:43 PT 10.2 Seconds (9.8-13.1) 10/03/18 05:04 INR 0.9 10/03/18 05:04 APTT 27.5 Seconds (25.6-37.1) 10/03/18 05:04
--- NOTE | 2018-10-07 08:38 | CP.PCM.PN ---
Subjective - Date & Time of Evaluation Date of Evaluation: 10/07/18 Time of Evaluation: 08:15 - Subjective Subjective: Has no particular symptoms this morning. Was able to get out of bed and use the bathroom without any difficulty. Breathes at 16-18 breaths per minute and can carry on a conversation. Telemetry shows tachycardia at 120 bpm which gradually Ewalt approximately 15 minutes back when she went to the bathroom. Her blood pressure was 110/70 meters of mercury. Her jugular venous pressure was not elevated and there was no gallop rhythm. An electrocardiogram would be obtained in half an hour. workup continues regarding her lung mass. Objective - Vital Signs/Intake and Output Vital Signs (last 24 hours): Temp Pulse Resp BP Pulse Ox 97.7 F 95 H 18 122/66 97 10/07/18 08:11 10/07/18 08:11 10/07/18 08:11 10/07/18 08:11 10/07/18 08:11 - Medications Medications: Current Medications Acetaminophen (Tylenol 325mg Tab) 650 mg PO Q4 PRN PRN Reason: Pain, Mild (1-3) Last Admin: 10/04/18 17:32 Dose: 650 mg Isosorbide Dinitrate (Isordil) 20 mg PO BID [facility] Last Admin: 10/07/18 08:35 Dose: 20 mg - Labs Labs: 10/03/18 09:43 10/03/18 09:43 PT 10.2 Seconds (9.8-13.1) 10/03/18 05:04 INR 0.9 10/03/18 05:04 APTT 27.5 Seconds (25.6-37.1) 10/03/18 05:04
--- NOTE | 2018-10-07 10:47 | CP.PCM.PN ---
Subjective - Date & Time of Evaluation Date of Evaluation: 10/07/18 Time of Evaluation: 10:46 - Subjective Subjective: Bronchial washings have shown [id number] carcinoma. Further ID is pending staining of biopsy specimen. Clinically unchanged. Remains afebrile and in no acute distress. Well oxygenated. Seated in a bedside chair. Objective - Vital Signs/Intake and Output Vital Signs (last 24 hours): Temp Pulse Resp BP Pulse Ox 97.7 F 137 H 18 122/66 97 10/07/18 09:00 10/07/18 10:09 10/07/18 09:00 10/07/18 09:00 10/07/18 09:00 - Medications Medications: Current Medications Acetaminophen (Tylenol 325mg Tab) 650 mg PO Q4 PRN PRN Reason: Pain, Mild (1-3) Last Admin: 10/04/18 17:32 Dose: 650 mg Isosorbide Dinitrate (Isordil) 20 mg PO BID [facility] Last Admin: 10/07/18 08:35 Dose: 20 mg Metoprolol Tartrate (Lopressor) 25 mg PO Q12 [facility] Last Admin: 10/07/18 10:09 Dose: 25 mg - Labs Labs: 10/03/18 09:43 10/03/18 09:43 PT 10.2 Seconds (9.8-13.1) 10/03/18 05:04 INR 0.9 10/03/18 05:04 APTT 27.5 Seconds (25.6-37.1) 10/03/18 05:04 Assessment and Plan (1) Esophageal obstruction Status: Acute (2) Pulmonary mass Status: Acute
--- NOTE | 2018-10-07 22:54 | CARD ---
APPROVED REPORT Date of service: 10/07/2018 EKG Measurement Heart [id number] <Conclusion> Atrial fibrillation with occasional premature ventricular complexes ST & T wave abnormality, consider inferolateral ischemia Abnormal ECG
[2018-10-09 09:57] LABS: HEMOGLOBIN 12.7 g/dL (12.0-16.0); MEAN CELL VOLUME 80.1 fl (81.0-99.0); MEAN CORPUSCULAR HEMOGLOBIN 25.2 pg (27.0-31.0); MEAN CORPUSCULAR HGB CONC 31.4 g/dL (33.0-37.0); RBC 5.04 Mil/uL (3.80-5.20); RED CELL DISTRIBUTION WIDTH 21.7 % (11.5-14.5); WHITE BLOOD COUNT 7.3 K/uL (4.8-10.8)
--- NOTE | 2018-10-09 10:08 | CP.PCM.PN ---
Subjective - Date & Time of Evaluation Date of Evaluation: 10/09/18 Time of Evaluation: 10:03 - Subjective Subjective: Clinically appears stable. Seated on edge of the bed. Vital signs remain stable, continues to be afebrile. Eating pureed foods and liquids. CBC remains status quo. Pathology remains outstanding. Discussed with Oncology today. Rhonchi heard primarily on the right with prolonged expiratory phase. No audible wheezing. Few rales present in lung bases. No bronchial breathing or egophony. Heart sounds are distant, rhythm regular. No dependant edema, no cyanosis. Await final path report to initiate guided therapy. She has been tobacco free since admission w/o withdrawal. (incorrect statement in consultation: patient is a [facility] cigarette smoker who continues her habit presently). Objective - Vital Signs/Intake and Output Vital Signs (last 24 hours): Temp Pulse Resp BP Pulse Ox 97.9 F 63 18 130/71 97 10/09/18 07:58 10/09/18 09:31 10/09/18 07:58 10/09/18 09:31 10/09/18 07:58 Intake and Output: 10/08/18 10/09/18 23:59 11:59 Intake Total 860 Balance 860 - Medications Medications: Current Medications Acetaminophen (Tylenol 325mg Tab) 650 mg PO Q4 PRN PRN Reason: Pain, Mild (1-3) Last Admin: 10/04/18 17:32 Dose: 650 mg Isosorbide Dinitrate (Isordil) 20 mg PO BID [facility] Last Admin: 10/09/18 09:32 Dose: 20 mg Metoprolol Tartrate (Lopressor) 25 mg PO Q12 [facility] Last Admin: 10/09/18 09:31 Dose: 25 mg - Labs Labs: 10/09/18 09:50 10/03/18 09:43 PT 10.2 Seconds (9.8-13.1) 10/03/18 05:04 INR 0.9 10/03/18 05:04 APTT 27.5 Seconds (25.6-37.1) 10/03/18 05:04 Assessment and Plan (1) Esophageal obstruction Status: Acute (2) Pulmonary mass Status: Acute
[2018-10-09 10:15] LABS: ALB/GLOB RATIO 1.1 (1.0-2.1); ALBUMIN 3.7 g/dL (3.5-5.0); ALT/SGPT 23 U/L (9-52); AST/SGOT 20 U/L (14-36); BLOOD UREA NITROGEN 8 mg/dl (7-17); CALCIUM 9.6 mg/dL (8.4-10.2); GFR NON-AFRICAN AMERICAN > 60
--- NOTE | 2018-10-09 10:51 | CP.PCM.PN ---
Subjective - Date & Time of Evaluation Date of Evaluation: 10/09/18 Time of Evaluation: 10:49 - Subjective Subjective: Pt feels well no complaints Final report from pathology pending this will help determine therapy Objective - Vital Signs/Intake and Output Vital Signs (last 24 hours): Temp Pulse Resp BP Pulse Ox 97.9 F 63 18 130/71 97 10/09/18 07:58 10/09/18 09:31 10/09/18 07:58 10/09/18 09:31 10/09/18 07:58 - Medications Medications: Current Medications Acetaminophen (Tylenol 325mg Tab) 650 mg PO Q4 PRN PRN Reason: Pain, Mild (1-3) Last Admin: 10/04/18 17:32 Dose: 650 mg Isosorbide Dinitrate (Isordil) 20 mg PO BID [facility] Last Admin: 10/09/18 09:32 Dose: 20 mg Metoprolol Tartrate (Lopressor) 25 mg PO Q12 [facility] Last Admin: 10/09/18 09:31 Dose: 25 mg - Labs Labs: 10/09/18 09:50 10/09/18 09:50 PT 10.2 Seconds (9.8-13.1) 10/03/18 05:04 INR 0.9 10/03/18 05:04 APTT 27.5 Seconds (25.6-37.1) 10/03/18 05:04 Assessment and Plan (1) Pulmonary mass Assessment & Plan: Infiltrating Carcinoma final report pending Status: Acute (2) Esophageal obstruction Status: Acute (3) Breast CA Status: Acute (4) Duodenal ulcer with hemorrhage Status: Acute (5) Essential (primary) hypertension Status: Acute (6) GI bleed Status: Acute (7) Mixed hyperlipidemia Status: Acute (8) S/P AVR (aortic valve replacement) Status: Acute
--- NOTE | 2018-10-10 11:14 | CP.PCM.PN ---
Subjective - Date & Time of Evaluation Date of Evaluation: 10/10/18 Time of Evaluation: 11:13 - Subjective Subjective: Clinically unchanged. Vital signs remain stable. Tolerating pureed diet. SpO2 92% on room air at rest. Awaiting final path reports. Objective - Vital Signs/Intake and Output Vital Signs (last 24 hours): Temp Pulse Resp BP Pulse Ox 97.5 F L 70 18 122/78 93 L 10/10/18 08:57 10/10/18 09:46 10/10/18 08:57 10/10/18 09:46 10/10/18 08:57 - Medications Medications: Current Medications Acetaminophen (Tylenol 325mg Tab) 650 mg PO Q4 PRN PRN Reason: Pain, Mild (1-3) Last Admin: 10/04/18 17:32 Dose: 650 mg Isosorbide Dinitrate (Isordil) 20 mg PO BID [facility] Last Admin: 10/10/18 09:46 Dose: 20 mg Metoprolol Tartrate (Lopressor) 25 mg PO Q12 [facility] Last Admin: 10/10/18 09:46 Dose: 25 mg - Labs Labs: 10/09/18 09:50 10/09/18 09:50 PT 10.2 Seconds (9.8-13.1) 10/03/18 05:04 INR 0.9 10/03/18 05:04 APTT 27.5 Seconds (25.6-37.1) 10/03/18 05:04 Assessment and Plan (1) Esophageal obstruction Status: Acute (2) Pulmonary mass Status: Acute
--- NOTE | 2018-10-10 12:02 | CP.PCM.PN ---
Subjective - Date & Time of Evaluation Date of Evaluation: 10/10/18 Time of Evaluation: 10:00 - Subjective Subjective: Path report pending tolerating Liquids / Puree foods Pt cannot go home she lives alone and caanot care for herself plus: because she is eating very little she is very weak Case discussed with Patti Humphries and Kaleb will transfer pt to regular floor Objective - Vital Signs/Intake and Output Vital Signs (last 24 hours): Temp Pulse Resp BP Pulse Ox 97.5 F L 70 18 122/78 93 L 10/10/18 08:57 10/10/18 09:46 10/10/18 08:57 10/10/18 09:46 10/10/18 08:57 - Medications Medications: Current Medications Acetaminophen (Tylenol 325mg Tab) 650 mg PO Q4 PRN PRN Reason: Pain, Mild (1-3) Last Admin: 10/04/18 17:32 Dose: 650 mg Isosorbide Dinitrate (Isordil) 20 mg PO BID [facility] Last Admin: 10/10/18 09:46 Dose: 20 mg Metoprolol Tartrate (Lopressor) 25 mg PO Q12 [facility] Last Admin: 10/10/18 09:46 Dose: 25 mg - Labs Labs: 10/09/18 09:50 10/09/18 09:50 PT 10.2 Seconds (9.8-13.1) 10/03/18 05:04 INR 0.9 10/03/18 05:04 APTT 27.5 Seconds (25.6-37.1) 10/03/18 05:04 Assessment and Plan (1) Pulmonary mass Status: Acute (2) Esophageal obstruction Status: Acute (3) Breast CA Status: Acute (4) Duodenal ulcer with hemorrhage Status: Acute (5) Essential (primary) hypertension Status: Acute (6) GI bleed Status: Acute (7) Mixed hyperlipidemia Status: Acute (8) S/P AVR (aortic valve replacement) Status: Acute
[2018-10-11 00:38] VITALS: RESP 18
--- NOTE | 2018-10-11 10:20 | CP.PCM.PN ---
Subjective - Date & Time of Evaluation Date of Evaluation: 10/11/18 Time of Evaluation: 10:15 - Subjective Subjective: Spoke to pathologist today. Unfortunately the final report on the biopsy is not yet available.. I feel that since pt is taking fluids and pureed food, Ifeel she could go home until the final path report is ready and then we can discuss the treatment plans with her. Objective - Vital Signs/Intake and Output Vital Signs (last 24 hours): Temp Pulse Resp BP Pulse Ox 97.8 F 67 18 126/78 98 10/11/18 08:08 10/11/18 09:06 10/11/18 08:08 10/11/18 09:06 10/11/18 08:08 - Medications Medications: Current Medications Acetaminophen (Tylenol 325mg Tab) 650 mg PO Q4 PRN PRN Reason: Pain, Mild (1-3) Last Admin: 10/04/18 17:32 Dose: 650 mg Isosorbide Dinitrate (Isordil) 20 mg PO BID [facility] Last Admin: 10/11/18 09:06 Dose: 20 mg Metoprolol Tartrate (Lopressor) 25 mg PO Q12 [facility] Last Admin: 10/11/18 09:06 Dose: 25 mg - Labs Labs: 10/09/18 09:50 10/09/18 09:50 PT 10.2 Seconds (9.8-13.1) 10/03/18 05:04 INR 0.9 10/03/18 05:04 APTT 27.5 Seconds (25.6-37.1) 10/03/18 05:04
--- NOTE | 2018-10-11 10:38 | CP.PCM.PN ---
Subjective - Date & Time of Evaluation Date of Evaluation: 10/11/18 Time of Evaluation: 10:00 - Subjective Subjective: Pt feels weak Dr Humphries's note appreciated pt lives alone are has no one to help her she has been getting weak spells probably secondary to the fact that although she is taking in some sustenance it is not enough will transfer pt to regular floor Objective - Vital Signs/Intake and Output Vital Signs (last 24 hours): Temp Pulse Resp BP Pulse Ox 97.8 F 67 18 126/78 98 10/11/18 08:08 10/11/18 09:06 10/11/18 08:08 10/11/18 09:06 10/11/18 08:08 - Medications Medications: Current Medications Acetaminophen (Tylenol 325mg Tab) 650 mg PO Q4 PRN PRN Reason: Pain, Mild (1-3) Last Admin: 10/04/18 17:32 Dose: 650 mg Isosorbide Dinitrate (Isordil) 20 mg PO BID [facility] Last Admin: 10/11/18 09:06 Dose: 20 mg Metoprolol Tartrate (Lopressor) 25 mg PO Q12 [facility] Last Admin: 10/11/18 09:06 Dose: 25 mg - Labs Labs: 10/09/18 09:50 10/09/18 09:50 PT 10.2 Seconds (9.8-13.1) 10/03/18 05:04 INR 0.9 10/03/18 05:04 APTT 27.5 Seconds (25.6-37.1) 10/03/18 05:04 Assessment and Plan (1) Pulmonary mass Status: Acute (2) Esophageal obstruction Status: Acute (3) Breast CA Status: Acute (4) Duodenal ulcer with hemorrhage Status: Acute (5) Essential (primary) hypertension Status: Acute (6) GI bleed Status: Acute (7) Mixed hyperlipidemia Status: Acute (8) S/P AVR (aortic valve replacement) Status: Acute
[2018-10-11 13:38] LABS: BLOOD UREA NITROGEN 12 mg/dl (7-17); GFR NON-AFRICAN AMERICAN > 60
[2018-10-11 13:39] LABS: CALCIUM 10.1 mg/dL (8.4-10.2)
[2018-10-11 20:13] VITALS: TEMP 97.7; O2SAT 97
[2018-10-11 20:28] VITALS: BP 124/78; PULSE 75
== END 2018-10-11 20:50 | DRG 181 ==
LOC: H.ER 16:54 → H.ERHOLD 19:07 → H.TEL 21:39
PROVIDERS: ADMIT Internal Medicine Cardiovascular Disease; ATTEND Internal Medicine Cardiovascular Disease
PROC: 0BB48ZX Excision of Right Upper Lobe Bronchus, Via Natural or Artificial Opening Endoscopic, Diagnostic (ICD-10-PCS; 2018-10-04)
PROC: 0B938ZX Drainage of Right Main Bronchus, Via Natural or Artificial Opening Endoscopic, Diagnostic (ICD-10-PCS; 2018-10-04)
PROC: 0B948ZX Drainage of Right Upper Lobe Bronchus, Via Natural or Artificial Opening Endoscopic, Diagnostic (ICD-10-PCS; 2018-10-04)
PROC: 0BB38ZX Excision of Right Main Bronchus, Via Natural or Artificial Opening Endoscopic, Diagnostic (ICD-10-PCS; principal; 2018-10-04 07:45)
DX: C34.01 Malignant neoplasm of right main bronchus (principal); C34.11 Malignant neoplasm of upper lobe, right bronchus or lung; K22.2 Esophageal obstruction; E87.6 Hypokalemia; R13.19 Other dysphagia; I10 Essential (primary) hypertension; J44.9 Chronic obstructive pulmonary disease, unspecified; E78.2 Mixed hyperlipidemia; F17.210 Nicotine dependence, cigarettes, uncomplicated; Z95.2 Presence of prosthetic heart valve; Z85.3 Personal history of malignant neoplasm of breast; Z90.11 Acquired absence of right breast and nipple; Z92.3 Personal history of irradiation; Z87.11 Personal history of peptic ulcer disease

== ENCOUNTER 2018-10-11 21:02 | Inpatient (IN) | payer OTHER ==
[2018-10-11 21:14] VITALS: BMI 21.5
--- NOTE | 2018-10-12 07:22 | CP.PCM.HP ---
History of Present Illness - History of Present Illness History of Present Illness: 83 y/ow/f admitted to TCU after stay at [facility] Admitted with Right pulmonary mass impinging on the esophagus cannot swallow solid food only liquids/pureed foods Bx done revealed Infiltrating Carcinoma--etiology pending PMH: CABS HTN Atrial fibrillation Hyperlipidemia ++Smoker Present on Admission - Present on Admission Any Indicators Present on Admission: No Review of Systems - Constitutional Constitutional: Fatigue, Weight Loss, Weakness Past Patient History - Past Medical History & Family History Past Medical History?: Yes - Past Social History Smoking Status: Current Some Days Smoker - CARDIAC Hx Congestive Heart Failure: Yes Hx Hypercholesterolemia: Yes Hx Hypertension: Yes - PULMONARY Hx Respiratory Disorders: Yes Hx Chronic Obstructive Pulmonary Disease (COPD): Yes - NEUROLOGICAL Hx Neurological Disorder: No - HEENT Hx HEENT Problems: No - RENAL Hx Chronic Kidney Disease: No - ENDOCRINE/METABOLIC Hx Endocrine Disorders: No - HEMATOLOGICAL/ONCOLOGICAL Hx Blood Disorders: No Hx AIDS: No Hx Cancer: Yes Hx Human Immunodeficiency Virus (HIV): No - INTEGUMENTARY Hx Dermatological Problems: No - MUSCULOSKELETAL/RHEUMATOLOGICAL Hx Musculoskeletal Disorders: No Hx Falls: No - GASTROINTESTINAL Hx Gastrointestinal Disorders: No HX Swallowing Problems: Yes - GENITOURINARY/GYNECOLOGICAL Hx Genitourinary Disorders: Yes Other/Comment: breast cancer with radiation treatment - PSYCHIATRIC Hx Psychophysiologic Disorder: No Hx Substance Use: No - SURGICAL HISTORY Hx Surgeries: Yes Hx Coronary Artery Bypass Graft: Yes Hx Mastectomy: Yes (right) Hx Open Heart Surgery: Yes (valve replacement) - ANESTHESIA Hx Anesthesia: Yes Hx Anesthesia Reactions: No Hx Malignant Hyperthermia: No Meds Allergies/Adverse Reactions: Allergies Allergy/AdvReac Type Severity Reaction Status Date / Time No Known Allergies Allergy Verified 09/29/18 17:03 Physical Exam - Head Exam Head Exam: NORMAL INSPECTION - Eye Exam Eye Exam: Normal appearance - ENT Exam ENT Exam: Normal Exam - Respiratory Exam Respiratory Exam: Decreased Breath Sounds, NORMAL BREATHING PATTERN - Cardiovascular Exam Cardiovascular Exam: Irregular Rhythm Results - Vital Signs Recent Vital Signs: Last Vital Signs Temp 97.5 F L 10/11/18 22:07 Pulse 74 10/11/18 22:23 Resp 20 10/11/18 22:23 BP 131/66 10/11/18 22:07 Pulse Ox 98 10/11/18 22:07 Assessment & Plan (1) Carcinoma of right lung Assessment and Plan: Pressing on the esophagus Status: Acute (2) Essential (primary) hypertension Status: Acute (3) Mixed hyperlipidemia Status: Acute (4) Pulmonary mass Status: Acute Priority: High (5) S/P AVR (aortic valve replacement) Status: Acute
[2018-10-12 15:44] VITALS: RESP 20
--- NOTE | 2018-10-13 11:57 | CP.PCM.CON ---
History of Present Illness - History of Present Illness History of Present Illness: Follow up consultation from acute medicine. She has had bronchoscopy done because of a right parahilar lesion which extends into the mediastinum. Her initial presentation was because of inability to swallow solid foods with significant weight loss. She did not complain of cough or shortness of breath and denied any history of hemoptysis. Bronchoscopy revealed a necrotic appearing lesion which looke like it had eroded through the postero-lateral wall of the right main bronchus. There was also infiltration of the RUL primary spur with near complete occlusion of the RUL bronchus. 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 Further special staining is under way to attempt identification of the primary source. EGD had been done which appeared surprisingly unremarkable except for an old, non-bleeding duodenal ulcer. She has had a prior mastectomy for breast cancer and this is being considered as a possible primary source, although I am favoring a diagnosis of bronchogenic. She has been able to tolerate pureed diet and has been discharged to subacute because of her general debilitated state and the fact that she does live alone. Past Patient History - Past Medical History & Family History Past Medical History?: Yes - Past Social History Smoking Status: Heavy Smoker > 10 Cigarettes Daily (probably.) Chewing Tobacco Use: No Cigar Use: No Alcohol: None Drugs: Denies Home Situation {Lives}: Alone - CARDIAC Hx Congestive Heart Failure: Yes Hx Hypercholesterolemia: Yes Hx Hypertension: Yes - PULMONARY Hx Bronchitis: Yes Hx Chronic Obstructive Pulmonary Disease (COPD): Yes - NEUROLOGICAL Hx Neurological Disorder: No - HEENT Hx HEENT Problems: No - RENAL Hx Chronic Kidney Disease: No - ENDOCRINE/METABOLIC Hx Endocrine Disorders: No - HEMATOLOGICAL/ONCOLOGICAL Hx Blood Disorders: No Hx AIDS: No Hx Cancer: Yes Hx Human Immunodeficiency Virus (HIV): No - INTEGUMENTARY Hx Dermatological Problems: No - MUSCULOSKELETAL/RHEUMATOLOGICAL Hx Musculoskeletal Disorders: No Hx Falls: No - GASTROINTESTINAL Hx Gastrointestinal Disorders: No HX Swallowing Problems: Yes - GENITOURINARY/GYNECOLOGICAL Hx Genitourinary Disorders: Yes Other/Comment: breast cancer with radiation treatment - PSYCHIATRIC Hx Psychophysiologic Disorder: No Hx Substance Use: No - SURGICAL HISTORY Hx Surgeries: Yes Hx Coronary Artery Bypass Graft: Yes Hx Mastectomy: Yes (right) Hx Open Heart Surgery: Yes (valve replacement) - ANESTHESIA Hx Anesthesia: Yes Hx Anesthesia Reactions: No Hx Malignant Hyperthermia: No Meds Allergies/Adverse Reactions: Allergies Allergy/AdvReac Type Severity Reaction Status Date / Time No Known Allergies Allergy Verified 09/29/18 17:03 - Medications Medications: Current Medications Acetaminophen (Tylenol 325mg Tab) 650 mg PO Q4 PRN PRN Reason: Pain, moderate (4-7) Isosorbide Dinitrate (Isordil) 20 mg PO BID [facility] Last Admin: 10/13/18 08:08 Dose: 20 mg Metoprolol Tartrate (Lopressor) 25 mg PO Q12 [facility] Last Admin: 10/13/18 08:08 Dose: 25 mg Physical Exam - Additional Findings Additional findings: Thin female who is lying semi-upright in bed. She appears comfortable at rest. There is no cough noted during the examination. No shortness of breath or sputum production. The pharynx is pink and mucous membranes are moist. Neck is supple and trachea is midline. No neck vein distention or carotid bruit. No palpable lymphadenopathy. No dullness on chest percussion. Both hemidiaphragms appear to be displaced caudally. Evidence of right mastectomy is noted. Breath sounds are diminished bilaterally. Scattered rhonchi are appreciated in the dependent zones of both lungs. Rare dry rales in the lower lobes. No audible wheezing or bronchial breath s ounds. Heart sounds are somewhat distant and rhythm is regular. No murmur was heard. Abdomen is soft and nontender with normal bowel sounds. No palpable HSM. Results - Vital Signs Recent Vital Signs: Last Vital Signs Temp 96.8 F L 10/13/18 08:18 Pulse 64 10/13/18 08:18 Resp 20 10/13/18 08:18 BP 123/75 10/13/18 08:18 Pulse Ox 98 10/13/18 08:18 Assessment & Plan (1) Carcinoma of right lung Status: Suspected Priority: High (2) Esophageal mass Status: Acute Comment: Extrinsic compression of the esophagus secondary to the above. - Date & Time Date: 10/13/18 Time: 12:01
--- NOTE | 2018-10-16 10:53 | CP.PCM.PN ---
Subjective - Date & Time of Evaluation Date of Evaluation: 10/16/18 Time of Evaluation: 10:52 - Subjective Subjective: Clinically appears stable. Tolerating puree diet. Vital signs are stable, afebrile. No chest discomfort or cough. Progressing with PT. Final path still pending. Objective - Vital Signs/Intake and Output Vital Signs (last 24 hours): Temp Pulse Resp BP Pulse Ox 97.5 F L 73 20 109/68 99 10/16/18 08:25 10/16/18 08:58 10/16/18 08:25 10/16/18 08:58 10/16/18 08:25 - Medications Medications: Current Medications Acetaminophen (Tylenol 325mg Tab) 650 mg PO Q4 PRN PRN Reason: Pain, moderate (4-7) Isosorbide Dinitrate (Isordil) 20 mg PO BID [facility] Last Admin: 10/16/18 08:58 Dose: 20 mg Metoprolol Tartrate (Lopressor) 25 mg PO Q12 [facility] Last Admin: 10/16/18 08:58 Dose: 25 mg Assessment and Plan (1) Carcinoma of right lung Status: Suspected (2) Esophageal mass Status: Acute
--- NOTE | 2018-10-16 11:28 | CP.PCM.PN ---
Subjective - Date & Time of Evaluation Date of Evaluation: 10/16/18 Time of Evaluation: 11:22 - Subjective Subjective: We still dont have a final path report on the patient lung biopsy.There is adenocarcinome but whether it is recurrent breast cancer or new lung malignancy, she will definitely need chemotherapy. wants to attend her grandson's wedding on Oct 21 before starting chemo.She seems to agree with that, but Objective - Vital Signs/Intake and Output Vital Signs (last 24 hours): Temp Pulse Resp BP Pulse Ox 97.5 F L 73 20 109/68 99 10/16/18 08:25 10/16/18 08:58 10/16/18 08:25 10/16/18 08:58 10/16/18 08:25 - Medications Medications: Current Medications Acetaminophen (Tylenol 325mg Tab) 650 mg PO Q4 PRN PRN Reason: Pain, moderate (4-7) Isosorbide Dinitrate (Isordil) 20 mg PO BID [facility] Last Admin: 10/16/18 08:58 Dose: 20 mg Metoprolol Tartrate (Lopressor) 25 mg PO Q12 [facility] Last Admin: 10/16/18 08:58 Dose: 25 mg
--- NOTE | 2018-10-16 16:33 | CP.PCM.PN ---
Subjective - Date & Time of Evaluation Date of Evaluation: 10/16/18 Time of Evaluation: 10:00 - Subjective Subjective: Path needs slides from Mastectomy 2013 @ [facility] [address] [place] Objective - Vital Signs/Intake and Output Vital Signs (last 24 hours): Temp Pulse Resp BP Pulse Ox 98.1 F 80 20 119/82 97 10/16/18 15:52 10/16/18 15:52 10/16/18 15:52 10/16/18 15:52 10/16/18 15:52 - Medications Medications: Current Medications Acetaminophen (Tylenol 325mg Tab) 650 mg PO Q4 PRN PRN Reason: Pain, moderate (4-7) Isosorbide Dinitrate (Isordil) 20 mg PO BID [facility] Last Admin: 10/16/18 08:58 Dose: 20 mg Metoprolol Tartrate (Lopressor) 25 mg PO Q12 [facility] Last Admin: 10/16/18 08:58 Dose: 25 mg Assessment and Plan (1) Carcinoma of right lung Status: Suspected (2) Essential (primary) hypertension Status: Acute (3) Mixed hyperlipidemia Status: Acute (4) Pulmonary mass Status: Acute (5) S/P AVR (aortic valve replacement) Status: Acute
--- NOTE | 2018-10-19 10:54 | CP.PCM.PN ---
Subjective - Date & Time of Evaluation Date of Evaluation: 10/19/18 Time of Evaluation: 10:00 - Subjective Subjective: Pt doing well STILL no final report from pathology!!!! Objective - Vital Signs/Intake and Output Vital Signs (last 24 hours): Temp Pulse Resp BP Pulse Ox 97.0 F L 77 20 123/72 98 10/19/18 08:29 10/19/18 08:29 10/19/18 08:29 10/19/18 08:29 10/19/18 08:29 - Medications Medications: Current Medications Acetaminophen (Tylenol 325mg Tab) 650 mg PO Q4 PRN PRN Reason: Pain, moderate (4-7) Isosorbide Dinitrate (Isordil) 20 mg PO BID [facility] Last Admin: 10/19/18 08:12 Dose: 20 mg Metoprolol Tartrate (Lopressor) 25 mg PO Q12 [facility] Last Admin: 10/19/18 08:12 Dose: 25 mg Assessment and Plan (1) Carcinoma of right lung Status: Suspected (2) Essential (primary) hypertension Status: Acute (3) Mixed hyperlipidemia Status: Acute (4) Pulmonary mass Status: Acute (5) S/P AVR (aortic valve replacement) Status: Acute
--- NOTE | 2018-10-20 14:01 | CP.PCM.PN ---
Subjective - Date & Time of Evaluation Date of Evaluation: 10/20/18 Time of Evaluation: 11:00 - Subjective Subjective: Pt doing well tolerating liquids / pureed foods / finely diced foods [employer] / [employer] [place] [employer] breakfast spoke at length to both daughters and family explaining the delay in path report and possible chemo options Objective - Vital Signs/Intake and Output Vital Signs (last 24 hours): Temp Pulse Resp BP Pulse Ox 97.9 F 71 20 121/79 97 10/20/18 08:34 10/20/18 08:34 10/20/18 08:34 10/20/18 08:34 10/20/18 08:34 - Medications Medications: Current Medications Acetaminophen (Tylenol 325mg Tab) 650 mg PO Q4 PRN PRN Reason: Pain, moderate (4-7) Isosorbide Dinitrate (Isordil) 20 mg PO BID [facility] Last Admin: 10/20/18 08:05 Dose: 20 mg Metoprolol Tartrate (Lopressor) 25 mg PO Q12 [facility] Last Admin: 10/20/18 08:05 Dose: 25 mg Assessment and Plan (1) Carcinoma of right lung Status: Suspected (2) Essential (primary) hypertension Status: Acute (3) Mixed hyperlipidemia Status: Acute (4) Pulmonary mass Status: Acute (5) S/P AVR (aortic valve replacement) Status: Acute
--- NOTE | 2018-10-23 09:32 | CP.PCM.PN ---
Subjective - Date & Time of Evaluation Date of Evaluation: 10/23/18 Time of Evaluation: 09:25 - Subjective Subjective: The fianal path report came in today. The biopsy showed a adenocarcinoma consistant with breast primary. I would like to give her carboplatin and taxol. I explained the side effects of the medications. She wants to think about it and then call me. Objective - Vital Signs/Intake and Output Vital Signs (last 24 hours): Temp Pulse Resp BP Pulse Ox 97.6 F 76 20 120/72 99 10/23/18 08:21 10/23/18 08:21 10/23/18 08:21 10/23/18 08:21 10/23/18 08:21 - Medications Medications: Current Medications Acetaminophen (Tylenol 325mg Tab) 650 mg PO Q4 PRN PRN Reason: Pain, moderate (4-7) Last Admin: 10/22/18 21:44 Dose: 650 mg Isosorbide Dinitrate (Isordil) 20 mg PO BID [facility] Last Admin: 10/23/18 08:29 Dose: 20 mg Metoprolol Tartrate (Lopressor) 25 mg PO Q12 [facility] Last Admin: 10/23/18 08:29 Dose: 25 mg
--- NOTE | 2018-10-23 14:01 | CP.PCM.PN ---
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 Chemotherapy has been offered to her explained in detail to her and daughter she is undecided as yet For now she will go to [place] contact Dr Humphries about decision to have chemotherapy Objective - Vital Signs/Intake and Output Vital Signs (last 24 hours): Temp Pulse Resp BP Pulse Ox 97.6 F 76 20 120/72 99 10/23/18 08:21 10/23/18 08:21 10/23/18 08:21 10/23/18 08:21 10/23/18 08:21 - Medications Medications: Current Medications Acetaminophen (Tylenol 325mg Tab) 650 mg PO Q4 PRN PRN Reason: Pain, moderate (4-7) Last Admin: 10/22/18 21:44 Dose: 650 mg Isosorbide Dinitrate (Isordil) 20 mg PO BID [facility] Last Admin: 10/23/18 08:29 Dose: 20 mg Metoprolol Tartrate (Lopressor) 25 mg PO Q12 [facility] Last Admin: 10/23/18 08:29 Dose: 25 mg Assessment and Plan (1) Carcinoma of right lung Assessment & Plan: Adenocarcinoma 2* to Breast Status: Suspected (2) Essential (primary) hypertension Status: Acute (3) Mixed hyperlipidemia Status: Acute (4) Pulmonary mass Status: Acute (5) S/P AVR (aortic valve replacement) Status: Acute
--- NOTE | 2018-10-24 11:28 | CP.PCM.PN ---
Subjective - Date & Time of Evaluation Date of Evaluation: 10/24/18 Time of Evaluation: 11:00 - Subjective Subjective: Pt seen with Dr Herb Humphries She has decided to accept Chemotherapy which 1st administration will be next week She is now awaiting a bed at [facility] Objective - Vital Signs/Intake and Output Vital Signs (last 24 hours): Temp Pulse Resp BP Pulse Ox 98.5 F 75 20 116/80 98 10/24/18 08:16 10/24/18 08:16 10/24/18 08:16 10/24/18 08:16 10/24/18 08:16 - Medications Medications: Current Medications Acetaminophen (Tylenol 325mg Tab) 650 mg PO Q4 PRN PRN Reason: Pain, moderate (4-7) Last Admin: 10/22/18 21:44 Dose: 650 mg Isosorbide Dinitrate (Isordil) 20 mg PO BID [facility] Last Admin: 10/24/18 08:10 Dose: 20 mg Metoprolol Tartrate (Lopressor) 25 mg PO Q12 [facility] Last Admin: 10/24/18 08:10 Dose: 25 mg Assessment and Plan (1) Carcinoma of right lung Status: Suspected (2) Essential (primary) hypertension Status: Acute (3) Mixed hyperlipidemia Status: Acute (4) Pulmonary mass Status: Acute (5) S/P AVR (aortic valve replacement) Status: Acute
[2018-10-26 08:40] VITALS: BP 112/78; PULSE 79; TEMP 97.8; O2SAT 97
--- NOTE | 2018-10-26 10:54 | CP.PCM.PN ---
Subjective - Date & Time of Evaluation Date of Evaluation: 10/26/18 Time of Evaluation: 10:51 - Subjective Subjective: Pt is feeling better knowing that she is leaving the hospital for the LATs. I will pre certify her for next week for chemotherapy for the metastatic breast cancer Objective - Vital Signs/Intake and Output Vital Signs (last 24 hours): Temp Pulse Resp BP Pulse Ox 97.8 F 79 20 112/78 97 10/26/18 08:39 10/26/18 08:39 10/26/18 08:39 10/26/18 08:39 10/26/18 08:39 - Medications Medications: Current Medications Acetaminophen (Tylenol 325mg Tab) 650 mg PO Q4 PRN PRN Reason: Pain, moderate (4-7) Last Admin: 10/22/18 21:44 Dose: 650 mg Isosorbide Dinitrate (Isordil) 20 mg PO BID [facility] Last Admin: 10/26/18 08:19 Dose: 20 mg Metoprolol Tartrate (Lopressor) 25 mg PO Q12 [facility] Last Admin: 10/26/18 08:19 Dose: 25 mg
--- NOTE | 2018-10-26 14:15 | CP.PCM.DIS ---
Provider - Provider Date of Admission: 10/11/18 21:14 Attending physician: Olaf Langston MD Consults: 10/11/18 22:21 Pulmonology Consult Routine Comment: Consulting Provider: Angelo Manuel Consulting Physician: Angelo Manuel Reason for Consult: follow up consult 10/11/18 22:22 Hematology Oncology Consult Routine Comment: Consulting Provider: Tiffanie Humphries Consulting Physician: Tiffanie Humphries Reason for Consult: follow up consult 10/12/18 02:03 Case Management Referral Routine Comment: Physician Instructions: Reason For Exam: Reason for Referral: Discharge Planning Time Spent in preparation of Discharge (in minutes): 55 Diagnosis - Discharge Diagnosis (1) Carcinoma of right lung Status: Suspected Priority: High Comment: Metastatic CA from Breast (2) Essential (primary) hypertension Status: Acute (3) Mixed hyperlipidemia Status: Acute (4) Pulmonary mass Status: Acute Priority: High (5) S/P AVR (aortic valve replacement) Status: Acute Hospital Course - Hospital Course Hospital Course: 83 y/ow/f admitted to TCU after stay at [facility] Admitted with Right pulmonary mass impinging on the esophagus Final Dx: Metastatic CA from Breast cannot swallow solid food only liquids/pureed foods Bx done revealed Infiltrating Carcinoma--etiology pending PMH: CABS HTN Atrial fibrillation Hyperlipidemia ++Smoker - Date & Time of H&P Date of H&P: 10/26/18 Time of H&P: 14:13 Discharge Exam - Head Exam Head Exam: NORMAL INSPECTION Discharge Plan - Follow Up Plan
== END 2018-10-26 10:35 | DRG 945 ==
LOC: H.TCU 21:14
PROVIDERS: ADMIT Internal Medicine Cardiovascular Disease; ATTEND Internal Medicine Cardiovascular Disease
PROC: F07Z9FZ Gait Training/Functional Ambulation Treatment using Assistive, Adaptive, Supportive or Protective Equipment (ICD-10-PCS; principal; 2018-10-11)
PROC: F08Z1FZ Dressing Techniques Treatment using Assistive, Adaptive, Supportive or Protective Equipment (ICD-10-PCS; 2018-10-11)
PROC: F07L6ZZ Therapeutic Exercise Treatment of Musculoskeletal System - Lower Back / Lower Extremity (ICD-10-PCS; 2018-10-11)
PROC: F06ZDZZ Swallowing Dysfunction Treatment (ICD-10-PCS; 2018-10-11)
DX: R53.81 Other malaise (principal); C78.01 Secondary malignant neoplasm of right lung; E78.2 Mixed hyperlipidemia; Z95.2 Presence of prosthetic heart valve; Z95.1 Presence of aortocoronary bypass graft; Z85.3 Personal history of malignant neoplasm of breast; K26.9 Duodenal ulcer, unspecified as acute or chronic, without hemorrhage or perforation; F17.210 Nicotine dependence, cigarettes, uncomplicated; I11.0 Hypertensive heart disease with heart failure; I50.9 Heart failure, unspecified; K22.2 Esophageal obstruction; K22.9 Disease of esophagus, unspecified; I48.91 Unspecified atrial fibrillation; R13.10 Dysphagia, unspecified; Z66 Do not resuscitate; J44.9 Chronic obstructive pulmonary disease, unspecified

== ENCOUNTER 2018-10-28 17:48 | Inpatient (IN) | payer MEDICARE, OTHER ==
[2018-10-28 17:48] VITALS: BMI 21.5
[2018-10-28] MEDS ORDERED: Sodium Chloride 0.9% 1,000 ML IV STA ×3 (19:38→23:08)
[2018-10-28 20:26] LABS: BASO # 0.1 K/uL (0.0-0.2); BASO % 0.9 % (0.0-2.0); EOS # 0.1 K/uL (0.0-0.7); EOS % 1.7 % (0.0-4.0); LYMPH % 22.1 % (20.0-40.0); MEAN CELL VOLUME 79.8 fl (81.0-99.0); MEAN CORPUSCULAR HEMOGLOBIN 26.3 pg (27.0-31.0); MEAN CORPUSCULAR HGB CONC 32.9 g/dL (33.0-37.0); MONO # 0.7 K/uL (0.0-0.8); MONO % 7.4 % (0.0-10.0); NEUT # 6.1 K/uL (1.8-7.0); NEUT % 67.9 % (50.0-75.0); NRBC % 0.1 % (0.0-0.0); RBC 4.95 Mil/uL (3.80-5.20); RED CELL DISTRIBUTION WIDTH 20.5 % (11.5-14.5); WHITE BLOOD COUNT 8.9 K/uL (4.8-10.8)
[2018-10-28 20:41] LABS: ALBUMIN 3.8 g/dL (3.5-5.0); ALT/SGPT 34 U/L (9-52); AST/SGOT 21 U/L (14-36); BLOOD UREA NITROGEN 17 mg/dl (7-17); CALCIUM 10.4 mg/dL (8.4-10.2); GFR NON-AFRICAN AMERICAN > 60
--- NOTE | 2018-10-28 21:09 | ED PDOC ---
HPI: General Adult Time Seen by Provider: 10/28/18 19:37 Chief Complaint (Nursing): Weakness/Neurological Deficit Chief Complaint (Provider): Chest pain History Per: Patient History/Exam Limitations: no limitations Current Symptoms Are (Timing): Still Present Additional Complaint(s): 83 year old female with a history of breast CA and CHF presents to the ED with the inability to swallow. Patient was recently admitted to this hospital due to esophageal mass. States she can tolerate pureed foods normally. However, this morning she tried to eat pureed pancakes and sausage. She feels it going down her throat but then regurgitates it. Tried to drink soft liquids today with no success. Patient is not able to tolerate anything. Feels as though she has a constant nagging pain in her right chest. Denies fever, abdominal pain, palpitations and diaphoresis. PMD: Olaf Langston Past Medical History Reviewed: Historical Data, Nursing Documentation, Vital Signs Vital Signs: Last Vital Signs Temp 97.9 F 10/28/18 17:53 Pulse 67 10/28/18 20:29 Resp 16 10/28/18 20:29 BP 88/59 L 10/28/18 17:53 Pulse Ox 97 10/28/18 20:29 - Medical History PMH: Bronchitis, CAD, CHF, COPD, HTN, Hypercholesterolemia Denies: HIV, Chronic Kidney Disease - Surgical History Surgical History: CABG - Family History Family History: States: Unknown Family Hx - Home Medications Home Medications: Ambulatory Orders Medication Instructions Recorded RX: Isosorbide Dinitrate [Isordil] 20 mg PO BID 09/29/18 Acetaminophen [Tylenol] 650 mg PO Q6 PRN 10/26/18 Metoprolol Tartrate [Lopressor] 25 mg PO Q12 10/26/18 - Allergies Allergies/Adverse Reactions: Allergies Allergy/AdvReac Type Severity Reaction Status Date / Time No Known Allergies Allergy Verified 09/29/18 17:03 Review of Systems ROS Statement: Except As Marked, All Systems Reviewed And Found Negative Constitutional: Negative for: Fever, Sweats ENT: Positive for: Other (inability to swallow) Cardiovascular: Negative for: Palpitations Gastrointestinal: Negative for: Nausea, Vomiting, Abdominal Pain Physical Exam - Reviewed Nursing Documentation Reviewed: Yes Vital Signs Reviewed: Yes - Physical Exam Appears: Positive for: No Acute Distress (elderly thin appearing woman; vitals stable on monitor) Head Exam: Positive for: ATRAUMATIC, NORMAL INSPECTION, NORMOCEPHALIC Skin: Positive for: Normal Color, Warm, Dry Eye Exam: Positive for: EOMI, Normal appearance, PERRL ENT: Positive for: Normal ENT Inspection, Other (trachea midline) Neck: Positive for: Normal, Painless ROM, Supple Cardiovascular/Chest: Positive for: Regular Rate, Rhythm, Other (reproducible te nderness to palpation on right chest). Negative for: Chest Non Tender Respiratory: Positive for: Normal Breath Sounds. Negative for: Respiratory Distress Gastrointestinal/Abdominal: Positive for: Normal Exam, Soft. Negative for: Guarding Extremity: Positive for: Normal ROM. Negative for: Deformity Neurologic/Psych: Positive for: Alert, Oriented. Negative for: Motor/Sensory Deficits - Laboratory Results Result Diagrams: 10/28/18 20:08 10/28/18 20:08 - ECG O2 Sat by Pulse Oximetry: 97 (RA) Pulse Ox Interpretation: Normal Medical Decision Making Medical Decision Makin:37 MDM: workup for worsening esophageal mass with dysphasia Patient did not pass swallow test CT chest/ abdomen/pelvis CXR, labs and IV fluids Called Dr. Langston Reassess 23:07 CT COMMENTS: There is no evidence for a chest or abdominal wall nodule or mass. The heart is moderately enlarged. Diffuse coronary calcifications are present. The patient is status post median sternotomy and CABG. Note is made of a large right upper lobe mass, which measures approximately 9 x 6 cm. This compresses the bronchi and deviates and compressed the esophagus as well partially compresses the trachea. This consistent with malignancy until proven otherwise. There is marked right hilar and subcarinal mediastinal lymphadenopathy. There is small right pleural effusion present. There is a right paratracheal mass with calcifications measuring approximately 3 x 2.5 cm, which is most consistent with right thyroid lobe goiter. Thoracic aorta is mildly dilated and tortuous. Small hiatal hernia is seen. The liver is of uniform attenuation without mass or defect. The gallbladder contains several calcified gallstones. There is no intrahepatic or extrahepatic biliary ductal dilatation. The spleen is normal. The pancreas is of normal contour and attenuation characteristics. There is no evidence of adrenal mass. Both kidneys demonstrate prompt and equal nephrograms. The kidneys are normal in size, shape, and configuration. There is no hydroureter or hydronephrosis. 3 cm cyst is present in the lower pole of the left kidney. There is no bowel wall thickening. No evidence for small or large bowel obstruction. There is no evidence of abdominal ascites or lymphadenopathy. There is no evidence of intrinsic or extrinsic bladder mass. There is no pelvic ascites or lymphadenopathy. The uterus and ovaries appear atrophic but otherwise grossly normal. The bony structures are free of lytic or blastic lesions. IMPRESSION: Large right upper lung lobe mass, consistent with malignancy until proven otherwise. Marked right hilar and subcarinal mediastinal lymphadenopathy. Small right pleural effusion. Right thyroid lobe goiter. Several calcified gallstones. 23:08 --spoke to Dr. Langston who said to admit patient without need for telemetry. Diagnoses are lung cancer and esophageal mass. Scribe Attestation: Documented by Leatha Pierson acting as a scribe for Mai Orozco MD Provider Scribe Attestation: All medical record entries made by the Scribe were at my direction and personally dictated by me. I have reviewed the chart and agree that the record accurately reflects my personal performance of the history, physical exam, medical decision making, and the department course for this patient. I have also personally directed, reviewed, and agree with the discharge instructions and disposition. Disposition - Clinical Impression Clinical Impression: Pulmonary mass, Dysphagia - Patient ED Disposition Is Patient to be Admitted: Yes - Disposition Disposition Time: 23:09 Condition: STABLE
[2018-10-29] MEDS: Dextrose 5%/0.9% NS 1,000 ML IV SCH (06:43)
--- NOTE | 2018-10-29 09:15 | CT ---
Date of service: 10/28/2018 PROCEDURE: HISTORY: chest pain, cant swallow, CA history COMPARISON: TECHNIQUE: FINDINGS: Large right upper lobe mass obscured by right upper lobe atelectasis. Right hilar lymphadenopathy as well as severe subcarinal lymphadenopathy. Small right pleural effusion. The pneumatized portions of the lungs are clear. No left pleural effusion or pericardial effusion. Gallstones are present. The liver, spleen, pancreas, adrenal glands and kidneys have a normal appearance. This with the exception of a roughly 4 centimeter left lower pole renal cyst. Aortic calcifications are observed. The bowel loops are unremarkable. No pelvic lymphadenopathy, mass or ascites identified. No suspicious skeletal lesions are observed. IMPRESSION: Large right upper lobe mass obscured by right right upper lobe atelectasis. Right hilar lymphadenopathy as well as severe subcarinal lymphadenopathy. Small right pleural effusion. Findings consistent with malignancy.
--- NOTE | 2018-10-29 09:41 | RAD ---
Date of service: 10/28/2018 HISTORY: possible admission COMPARISON: No prior. FINDINGS: LUNGS: Right upper lobe atelectasis. PLEURA: No significant pleural effusion identified, no pneumothorax apparent. CARDIOVASCULAR: No aortic atherosclerotic calcification present. Normal cardiac size. No pulmonary vascular congestion. OSSEOUS STRUCTURES: No significant abnormalities. VISUALIZED UPPER ABDOMEN: Normal. OTHER FINDINGS: None. IMPRESSION: Right upper lobe atelectasis.
--- NOTE | 2018-10-29 09:44 | CP.PCM.HP ---
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 She had been sent to [facility] but her swallowing became worse Consult called w/ Dr Herb Humphries she has already beeen scheduled for Chemotherapy 10/31 PMH: CA Breast w/ Mastectomy [address] Benson ([facility]) Radiation Tx AVR 2003 GI Bleed-Duodenal ulcer 12/08 Hypertension Hyperlipidemia Present on Admission - Present on Admission Any Indicators Present on Admission: No Past Patient History - Past Medical History & Family History Past Medical History?: Yes - Past Social History Smoking Status: Current Some Days Smoker - CARDIAC Hx Cardiac Disorders: Yes ([place], CHF, CAD, CABG, hypercholesterolemia, HTN) Hx Congestive Heart Failure: Yes Hx Heart Attack: Yes Hx Hypertension: Yes - PULMONARY Hx Respiratory Disorders: Yes (COPD, bronchitis) Hx Chronic Obstructive Pulmonary Disease (COPD): Yes - NEUROLOGICAL Hx Neurological Disorder: No - HEENT Hx HEENT Problems: No - RENAL Hx Chronic Kidney Disease: No - ENDOCRINE/METABOLIC Hx Endocrine Disorders: No - HEMATOLOGICAL/ONCOLOGICAL Hx Blood Disorders: Yes (breast ca, lung ca) - INTEGUMENTARY Hx Dermatological Problems: No - MUSCULOSKELETAL/RHEUMATOLOGICAL Hx Musculoskeletal Disorders: No Hx Falls: No - GASTROINTESTINAL Hx Gastrointestinal Disorders: Yes HX Swallowing Problems: Yes - GENITOURINARY/GYNECOLOGICAL Hx Genitourinary Disorders: No - PSYCHIATRIC Hx Psychophysiologic Disorder: No Hx Substance Use: No - SURGICAL HISTORY Hx Surgeries: Yes Hx Coronary Artery Bypass Graft: Yes Hx Mastectomy: Yes Hx Open Heart Surgery: Yes - ANESTHESIA Hx Anesthesia: Yes Hx Anesthesia Reactions: No Hx Malignant Hyperthermia: No Meds Allergies/Adverse Reactions: Allergies Allergy/AdvReac Type Severity Reaction Status Date / Time No Known Allergies Allergy Verified 09/29/18 17:03 Physical Exam - Constitutional Appears: In Acute Distress - Head Exam Head Exam: NORMAL INSPECTION - Eye Exam Eye Exam: Normal appearance - ENT Exam ENT Exam: Normal Exam - Respiratory Exam Respiratory Exam: NORMAL BREATHING PATTERN - Cardiovascular Exam Cardiovascular Exam: Irregular Rhythm, REGULAR RHYTHM Results - Vital Signs Recent Vital Signs: Last Vital Signs Temp 97.5 F L 10/29/18 08:36 Pulse 87 10/29/18 08:36 Resp 20 10/29/18 08:36 BP 135/74 10/29/18 08:36 Pulse Ox 96 10/29/18 08:36 - Labs Result Diagrams: 10/28/18 20:08 10/28/18 20:08 Labs: Laboratory Results - last 24 hr 10/28/18 10/28/18 10/28/18 20:08 20:08 20:08 WBC 8.9 RBC 4.95 Hgb 13.0 Hct 39.6 MCV 79.8 L MCH 26.3 L MCHC 32.9 L RDW 20.5 H Plt Count 274 MPV 8.0 Neut % (Auto) 67.9 Lymph % (Auto) 22.1 [place] % (Auto) 7.4 Eos % (Auto) 1.7 Baso % (Auto) 0.9 Neut # (Auto) 6.1 Lymph # (Auto) 2.0 [place] # (Auto) 0.7 Eos # (Auto) 0.1 Baso # (Auto) 0.1 Sodium 138 Potassium 4.5 Chloride 100 Carbon Dioxide 29 Anion Gap 14 BUN 17 Creatinine 0.8 Est GFR ( Amer) > 60 Est GFR (Non-Af Amer) > 60 Random Glucose 109 H Calcium 10.4 H Total Bilirubin 0.7 AST 21 ALT 34 Alkaline Phosphatase 96 Total Protein 7.6 Albumin 3.8 Globulin 3.8 Albumin/Globulin Ratio 1.0 Influenza Typ A,B (EIA) Negative for flu a/b Assessment & Plan (1) Pulmonary mass Assessment and Plan: Right Pulmonary mass 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
--- NOTE | 2018-10-29 11:53 | CP.PCM.CON ---
History of Present Illness - History of Present Illness History of Present Illness: This is a 83 yrs old female whom I had seen in the TCU unit about 2 weeks ago. She has a h.o breast cancer diagnosed many years ago for which she only had RT but no other treatment. She was ER,OR positive and HER2 negative. She has done well so far. Now she came to the hospital with c/o inability to swallow anything but liquid. A ct scan showed a large mass in the posterior mediastinum with pressure on the esophgus with almost complete obstruction. She underwent a bronchoscopic biopsy of an endobronchial lesion and was found to have an infiltrating adenocarcinoma, and further analysis by [facility] showed it to be of breast origin. [facility] , she was to come as an out patient for chemotherapy but her swallowing got worse and she was readmitted. No bleeding or hemoptysis seen. Past Patient History - Past Medical History & Family History Past Medical History?: Yes - Past Social History Smoking Status: Current Some Days Smoker - CARDIAC Hx Cardiac Disorders: Yes ([place], CHF, CAD, CABG, hypercholesterolemia, HTN) Hx Congestive Heart Failure: Yes Hx Heart Attack: Yes Hx Hypertension: Yes - PULMONARY Hx Respiratory Disorders: Yes (COPD, bronchitis) Hx Chronic Obstructive Pulmonary Disease (COPD): Yes - NEUROLOGICAL Hx Neurological Disorder: No - HEENT Hx HEENT Problems: No - RENAL Hx Chronic Kidney Disease: No - ENDOCRINE/METABOLIC Hx Endocrine Disorders: No - HEMATOLOGICAL/ONCOLOGICAL Hx Blood Disorders: Yes (breast ca, lung ca) - INTEGUMENTARY Hx Dermatological Problems: No - MUSCULOSKELETAL/RHEUMATOLOGICAL Hx Musculoskeletal Disorders: No Hx Falls: No - GASTROINTESTINAL Hx Gastrointestinal Disorders: Yes HX Swallowing Problems: Yes - GENITOURINARY/GYNECOLOGICAL Hx Genitourinary Disorders: No - PSYCHIATRIC Hx Psychophysiologic Disorder: No Hx Substance Use: No - SURGICAL HISTORY Hx Surgeries: Yes Hx Coronary Artery Bypass Graft: Yes Hx Mastectomy: Yes Hx Open Heart Surgery: Yes - ANESTHESIA Hx Anesthesia: Yes Hx Anesthesia Reactions: No Hx Malignant Hyperthermia: No Meds Allergies/Adverse Reactions: Allergies Allergy/AdvReac Type Severity Reaction Status Date / Time No Known Allergies Allergy Verified 09/29/18 17:03 - Medications Medications: Current Medications Dextrose/Sodium Chloride (Dextrose 5%/0.9% Ns 1000 Ml) 1,000 mls @ 80 mls/hr IV .[id number] CHRIS Stop: 10/30/18 06:13 Last Admin: 10/29/18 06:43 Dose: 80 mls/hr Physical Exam - Additional Findings Additional findings: Physiacl exam; alert, well oriented in no acute distress,. neck; supple,no adenopahty Chest; clear,no rales or rhonchi Results - Vital Signs Recent Vital Signs: Last Vital Signs Temp 97.5 F L 10/29/18 08:36 Pulse 87 10/29/18 08:36 Resp 20 10/29/18 08:36 BP 135/74 10/29/18 08:36 Pulse Ox 96 10/29/18 08:36 - Labs Result Diagrams: 10/28/18 20:08 10/28/18 20:08 Labs: Laboratory Results - last 24 hr 10/28/18 10/28/18 10/28/18 20:08 20:08 20:08 WBC 8.9 RBC 4.95 Hgb 13.0 Hct 39.6 MCV 79.8 L MCH 26.3 L MCHC 32.9 L RDW 20.5 H Plt Count 274 MPV 8.0 Neut % (Auto) 67.9 Lymph % (Auto) 22.1 [place] % (Auto) 7.4 Eos % (Auto) 1.7 Baso % (Auto) 0.9 Neut # (Auto) 6.1 Lymph # (Auto) 2.0 [place] # (Auto) 0.7 Eos # (Auto) 0.1 Baso # (Auto) 0.1 Sodium 138 Potassium 4.5 Chloride 100 Carbon Dioxide 29 Anion Gap 14 BUN 17 Creatinine 0.8 Est GFR ( Amer) > 60 Est GFR (Non-Af Amer) > 60 Random Glucose 109 H Calcium 10.4 H Total Bilirubin 0.7 AST 21 ALT 34 Alkaline Phosphatase 96 Total Protein 7.6 Albumin 3.8 Globulin 3.8 Albumin/Globulin Ratio 1.0 Influenza Typ A,B (EIA) Negative for flu a/b Assessment & Plan - Assessment and Plan (Free Text) Assessment: Impression; Large lung mass consistent with metastatic breast cancer. Plan: Plan; Will give her chemotherapy with carboplatin and taxol. - Date & Time Date: 10/29/18 Time: 12:10
[2018-10-30] MEDS: Dextrose 5%/0.9% NS 1,000 ML IV SCH (01:08)
[2018-10-30 10:14] LABS: INR 1.2; PROTHROMBIN TIME 13.1 Seconds (9.8-13.1)
[2018-10-30 10:17] LABS: PARTIAL THROMBOPLASTIN TIME 30.5 Seconds (25.6-37.1)
--- NOTE | 2018-10-30 10:24 | CP.PCM.PN ---
Subjective - Date & Time of Evaluation Date of Evaluation: 10/30/18 Time of Evaluation: 10:22 - Subjective Subjective: Pt doing fairly well was able to take in some soup last nite Pt was seen by Dr Herb Humphries To have Chemotherapy tomorrow Objective - Vital Signs/Intake and Output Vital Signs (last 24 hours): Temp Pulse Resp BP Pulse Ox 97.9 F 103 H 20 127/79 94 L 10/30/18 09:04 10/30/18 09:04 10/30/18 09:04 10/30/18 09:04 10/30/18 09:04 - Medications Medications: Current Medications Dextrose/Sodium Chloride (Dextrose 5%/0.9% Ns 1000 Ml) 1,000 mls @ 80 mls/hr IV .[id number] CHRIS Stop: 10/31/18 10:19 - Labs Labs: 10/28/18 20:08 10/28/18 20:08 PT 13.1 Seconds (9.8-13.1) 10/30/18 08:35 INR 1.2 10/30/18 08:35 APTT 30.5 Seconds (25.6-37.1) 10/30/18 08:35 Assessment and Plan (1) Pulmonary mass Status: Acute (2) Essential (primary) hypertension Status: Acute (3) Mixed hyperlipidemia Status: Acute (4) S/P AVR (aortic valve replacement) Status: Acute
[2018-10-30] MEDS ORDERED: Dextrose 5%/0.9% NS 1,000 ML IV SCH (10:30)
--- NOTE | 2018-10-30 10:32 | CP.PCM.PN ---
Subjective - Date & Time of Evaluation Date of Evaluation: 10/30/18 Time of Evaluation: 10:30 - Subjective Subjective: Pt will get a lifeport placed today and get chemotherapy tomorrow. Vital signs are normal, but pt is unable to swallow any fluids. Objective - Vital Signs/Intake and Output Vital Signs (last 24 hours): Temp Pulse Resp BP Pulse Ox 97.9 F 103 H 20 127/79 94 L 10/30/18 09:04 10/30/18 09:04 10/30/18 09:04 10/30/18 09:04 10/30/18 09:04 - Medications Medications: Current Medications Dextrose/Sodium Chloride (Dextrose 5%/0.9% Ns 1000 Ml) 1,000 mls @ 80 mls/hr IV .[id number] CHRIS Stop: 10/31/18 10:19 - Labs Labs: 10/28/18 20:08 10/28/18 20:08 PT 13.1 Seconds (9.8-13.1) 10/30/18 08:35 INR 1.2 10/30/18 08:35 APTT 30.5 Seconds (25.6-37.1) 10/30/18 08:35
[2018-10-30] MEDS ORDERED: Lidocaine 1% w Epi 1:100,000 Inj ONE (11:44)
[2018-10-30] MEDS ORDERED: Lidocaine 1% Inj (20ml) ONE (11:44)
[2018-10-30] MEDS ORDERED: Midazolam 2 MG/2 ML VIAL ONE (12:13)
--- NOTE | 2018-10-30 12:52 | PCM.SURG1 ---
Surgeon's Initial Post Op Note - Surgeon's Notes Surgeon: Be Saeed MD Assistant Boys Track Coach: None Type of Anesthesia: IV Sedation Anesthesia Administered By: Dr. Ruiz Pre-Operative Diagnosis: Adenocarcionoma Operative Findings: US showed a patent right IJV Post-Operative Diagnosis: Adenocarcinoma Operation Performed: Port placement via right IJV Specimen/Specimens Removed: NOne Estimated Blood Loss: EBL {In ML}: 3 Blood Products Given: N/A Drains Used: No Drains Post-Op Condition: Fair Date of Surgery/Procedure: 10/30/18 Time of Surgery/Procedure: 12:50
[2018-10-30] MEDS ORDERED: Sodium Chloride 0.9% 250 ML IV ONE (13:55)
[2018-10-30] MEDS ORDERED: Morphine 4 MG/ML VIAL IVP PRN (19:45)
[2018-10-31] MEDS ORDERED: Lidocaine/Prilocaine CREAM 5GM TP ONE (10:00)
--- NOTE | 2018-10-31 10:07 | CP.PCM.PN ---
Subjective - Date & Time of Evaluation Date of Evaluation: 10/31/18 Time of Evaluation: 10:04 - Subjective Subjective: Pt had a lifeport placed yesterday. She is to receive her first dose ofchemotherapy today with paclitaxel 80mg/m2 and carboplatin at AUC 5.This iwill be repeated q 3 weeks. Objective - Vital Signs/Intake and Output Vital Signs (last 24 hours): Temp Pulse Resp BP Pulse Ox 98.2 F 83 18 121/83 95 10/31/18 08:08 10/31/18 08:08 10/31/18 08:08 10/31/18 08:08 10/31/18 08:08 - Medications Medications: Current Medications Famotidine (Pepcid) 20 mg IVP DAILY CHRIS Dextrose/Sodium Chloride (Dextrose 5%/0.9% Ns 1000 Ml) 1,000 mls @ 80 mls/hr IV .[id number] CHRIS Stop: 10/31/18 10:19 Last Admin: 10/30/18 20:00 Dose: 80 mls/hr Diphenhydramine HCl 25 mg/ (Sodium Chloride) 50.5 mls @ 101 mls/hr IVPB ONCE ONE Stop: 10/31/18 11:29 Dexamethasone 10 mg/ Sodium (Chloride) 51 mls @ 102 mls/hr IVPB ONCE ONE Stop: 10/31/18 11:29 Fosaprepitant 150 mg/ Sodium (Chloride) 250 mls @ 500 mls/hr IVPB ONCE ONE Stop: 10/31/18 11:59 Sodium Chloride (Sodium Chloride 0.9%) 500 mls @ 100 mls/hr IV .Q5H CHRIS Ondansetron HCl 16 mg/ Sodium (Chloride) 58 mls @ 116 mls/hr IVPB ONCE ONE Stop: 10/31/18 11:29 Carboplatin 295 mg/ Sodium (Chloride) 279.5 mls @ 0 mls/hr IV ONCE ONE Stop: 10/31/18 09:19 Paclitaxel 100 mg/ Sodium (Chloride) 266.6667 mls @ 0 mls/hr IV ONCE ONE Stop: 10/31/18 09:20 Morphine Sulfate (Morphine) 2 mg IVP Q6 PRN PRN Reason: Pain, moderate (4-7) - Labs Labs: 10/28/18 20:08 10/28/18 20:08 PT 13.1 Seconds (9.8-13.1) 10/30/18 08:35 INR 1.2 10/30/18 08:35 APTT 30.5 Seconds (25.6-37.1) 10/30/18 08:35
[2018-10-31] MEDS ORDERED: Dexamethasone 10 MG in Sodium Chloride 0.9% 50 ML IVPB ONE (11:00)
[2018-10-31] MEDS ORDERED: Fosaprepitant 150 MG in Sodium Chloride 0.9% 250 ML IVPB ONE (11:30)
[2018-10-31] MEDS ORDERED: CARBOPLATIN IV ONE (12:00)
[2018-10-31] MEDS ORDERED: SODIUM CHLORIDE 0.9% IV ONE (12:00)
--- NOTE | 2018-10-31 12:27 | VASCULAR ---
PROCEDURE: Date of procedure: 10/30/2018 Procedure: 1. Placement of a right IJ port catheter with ultrasound and fluoroscopic guidance, CPT 37115 2. Catheter tip confirmation with spot radiograph in the superior vena cava. Medications: The patient was sedated anesthesiologist along with monitoring, Ancef 1 gm, Lidocaine 1% w Epinephrine Fluoroscopic time: 8.6 seconds Radiation: 0.72 MGy Blood loss: 4 cc HISTORY: Adenocarcinoma lung requiring port for chemotherapy TECHNIQUE: Following informed consent the procedure time-out, patient was placed supine on the interventional table and the right neck and chest were prepped and draped in the usual sterile fashion. Ultrasound showed a compressible right internal jugular vein. After the patient was sedated by the anesthesiologist, the skin anesthetized with 1% lidocaine with epinephrine. Under direct ultrasound guidance, the right internal jugular vein was accessed with micropuncture technique. A guidewire was then advanced under fluoroscopic guidance into the superior vena cava. An image documenting ultrasound guidance for vascular access was permanently saved. The subcutaneous tissue of patient right chest was infiltrated with 1 percent lidocaine with epinephrine. A dermatotomy was made with a 15. Scalpel. The port pocket was then created with blunt dissection using a Pina clamp. The port pocket was flushed. A port catheter was then tunneled under the skin and out the venotomy site. The port catheter was flushed, advanced through a peel-away sheath, adjusted for length, and attached to the port. The port was placed in the port pocket and was secured with 2-0 SurgiPro sutures. The port was flushed and locked with heparin. The port pocket was then closed with absorbable 4-0 Polysorb sutures. The port pocket and the venotomy site were reprepped with ChloraPrep. Steri-Strips were then applied to the port incision also venotomy site. A sterile dressing was then applied. Final spot radiograph showed the right IJ port catheter with tip of the port catheter in the superior vena cava. A port is functional and ready for use. IMPRESSION: Placement of right IJ port catheter. The tip of the port is in the superior vena cava.
--- NOTE | 2018-10-31 15:41 | PQF ---
PROVIDER RESPONSE TEXT: The patient is NOT in CHF REVIEWER QUERY TEXT: Heart Failure Acuity and Type A hx. Congestive Heart Failure is documented in the Medical Record. Please document the type and acui ty (includes probable or suspected) versus No CHF:history only and not chronic Such as: Type: -- Combined systolic and diastolic (heart failure with reduced ejection fraction and diastolic) dysfu nction -- Diastolic (HFpEF) -- Systolic (HFrEF) -- Left heart failure -- Right heart failure -- Right heart failure due to left heart failure -- High output failure -- End stage heart failure -- Other, please specify Acuity: -- Acute -- Chronic -- Acute on chronic -- Other, please specify 10/29:CXR: Impression : Right upper lobe atelectasis. H and P: includes a hx. of CHF Respiratory Exam: NORMAL BREATHING PATTERN The patient's Clinical Indicators include: -- Query created by: Reena Guevara on 10/31/2018 3:11 PM Electronically signed by: Olaf Langston MD 10/31/2018 3:37 PM
[2018-10-31] MEDS: Sodium Chloride 0.9% 1,000 ML IV SCH (22:19)
[2018-11-01 06:31] LABS: BASO % 0.2 % (0.0-2.0); HEMOGLOBIN 12.1 g/dL (12.0-16.0); LYMPH # 0.7 K/uL (1.0-4.3); LYMPH % 6.9 % (20.0-40.0); MEAN CELL VOLUME 80.4 fl (81.0-99.0); MEAN CORPUSCULAR HEMOGLOBIN 25.8 pg (27.0-31.0); MEAN CORPUSCULAR HGB CONC 32.1 g/dL (33.0-37.0); MEAN PLATELET VOLUME 8.5 fl (7.2-11.7); MONO # 0.1 K/uL (0.0-0.8); MONO % 0.6 % (0.0-10.0); NEUT % 92.3 % (50.0-75.0); NRBC % 0.1 % (0.0-0.0); PLATELET COUNT 204 K/uL (130-400); RBC 4.68 Mil/uL (3.80-5.20); RED CELL DISTRIBUTION WIDTH 20.3 % (11.5-14.5); WHITE BLOOD COUNT 9.8 K/uL (4.8-10.8)
[2018-11-01 07:05] LABS: BLOOD UREA NITROGEN 12 mg/dl (7-17); CALCIUM 8.6 mg/dL (8.4-10.2); GFR NON-AFRICAN AMERICAN > 60
[2018-11-01 09:04] LABS: ANISOCYTOSIS MODERATE; LYMPHOCYTE 10 % (20-50); MONOCYTE 1 % (0-10); NEUTROPHIL 89 % (42-75); PLATELET ESTIMATE NORMAL (NORMAL); TOTAL CELLS COUNTED 100
--- NOTE | 2018-11-01 10:04 | CP.PCM.PN ---
Subjective - Date & Time of Evaluation Date of Evaluation: 11/01/18 Time of Evaluation: 10:04 - Subjective Subjective: Pt had her first chemotherapy yesterday, and tolerated it very well. She will receive 1 dose of granix today and one dose tomorrow for prophylaxis against neutropenia which is very possible with this protocol. Objective - Vital Signs/Intake and Output Vital Signs (last 24 hours): Temp Pulse Resp BP Pulse Ox 97.5 F L 87 20 138/87 93 L 11/01/18 09:19 11/01/18 09:19 11/01/18 09:19 11/01/18 09:19 11/01/18 09:19 - Medications Medications: Current Medications Famotidine (Pepcid) 20 mg IVP DAILY [facility] Last Admin: 11/01/18 09:12 Dose: 20 mg Sodium Chloride (Sodium Chloride 0.9%) 500 mls @ 100 mls/hr IV .Q5H [facility] Sodium Chloride (Sodium Chloride 0.9%) 1,000 mls @ 50 mls/hr IV .Q20H [facility] Stop: 11/01/18 22:09 Last Admin: 10/31/18 22:19 Dose: 50 mls/hr Metoprolol Tartrate (Lopressor) 25 mg PO Q12 [facility] Last Admin: 11/01/18 09:04 Dose: 25 mg Morphine Sulfate (Morphine) 2 mg IVP Q6 PRN PRN Reason: Pain, moderate (4-7) - Labs Labs: 11/01/18 05:45 11/01/18 05:45 PT 13.1 Seconds (9.8-13.1) 10/30/18 08:35 INR 1.2 10/30/18 08:35 APTT 30.5 Seconds (25.6-37.1) 10/30/18 08:35
[2018-11-01] MEDS: Sodium Chloride 0.9% 1,000 ML IV SCH (20:37)
[2018-11-01] MEDS: Sodium Chloride 0.9% 500 ML IV SCH (20:39)
--- NOTE | 2018-11-01 20:53 | CARD ---
APPROVED REPORT Date of service: 11/01/2018 EKG Measurement Heart [id number] <Conclusion> Sinus rhythm with premature atrial complexes Left axis deviation ST & Marked T wave abnormality, consider anterolateral ischemia Prolonged QT Abnormal ECG
[2018-11-02] MEDS: Sodium Chloride 0.9% 500 ML IV SCH ×2 (02:14→06:14)
[2018-11-02 09:07] VITALS: RESP 20
--- NOTE | 2018-11-02 13:01 | CP.PCM.PN ---
Subjective - Date & Time of Evaluation Date of Evaluation: 11/02/18 Time of Evaluation: 10:00 - Subjective Subjective: Pt appears to be doing well Dr Herb Humphries's note appreciated Pt has requested to go home today after her injection today. Daughter is aware and agreeable Objective - Vital Signs/Intake and Output Vital Signs (last 24 hours): Temp Pulse Resp BP Pulse Ox 98.9 F 69 20 117/67 98 11/02/18 09:06 11/02/18 09:30 11/02/18 09:06 11/02/18 09:30 11/02/18 09:06 - Medications Medications: Current Medications Famotidine (Pepcid) 20 mg IVP DAILY [facility] Last Admin: 11/02/18 09:22 Dose: 20 mg Sodium Chloride (Sodium Chloride 0.9%) 500 mls @ 100 mls/hr IV .Q5H [facility] Last Admin: 11/02/18 06:14 Dose: Not Given Metoprolol Tartrate (Lopressor) 25 mg PO Q12 [facility] Last Admin: 11/02/18 09:30 Dose: 25 mg Morphine Sulfate (Morphine) 2 mg IVP Q6 PRN PRN Reason: Pain, moderate (4-7) - Labs Labs: 11/01/18 05:45 11/01/18 05:45 PT 13.1 Seconds (9.8-13.1) 10/30/18 08:35 INR 1.2 10/30/18 08:35 APTT 30.5 Seconds (25.6-37.1) 10/30/18 08:35 Assessment and Plan (1) Pulmonary mass Status: Acute (2) Essential (primary) hypertension Status: Acute (3) Mixed hyperlipidemia Status: Acute (4) S/P AVR (aortic valve replacement) Status: Acute
[2018-11-02 16:06] VITALS: BP 92/56; PULSE 63; TEMP 97.5; O2SAT 95
== END 2018-11-02 17:45 | disposition home or self-care (01) | DRG 182 ==
LOC: H.ER 17:48 → H.ERHOLD 22:53 → H.MEDSURG1 23:56
PROVIDERS: ADMIT Internal Medicine Cardiovascular Disease; ATTEND Internal Medicine Cardiovascular Disease
PROC: 02HV33Z Insertion of Infusion Device into Superior Vena Cava, Percutaneous Approach (ICD-10-PCS; 2018-10-30)
PROC: 3E04305 Introduction of Other Antineoplastic into Central Vein, Percutaneous Approach (ICD-10-PCS; 2018-10-30)
PROC: 0JH63WZ Insertion of Totally Implantable Vascular Access Device into Chest Subcutaneous Tissue and Fascia, Percutaneous Approach (ICD-10-PCS; principal; 2018-10-30 13:00)
DX: C78.01 Secondary malignant neoplasm of right lung (principal); K22.9 Disease of esophagus, unspecified; E04.9 Nontoxic goiter, unspecified; K80.20 Calculus of gallbladder without cholecystitis without obstruction; R13.10 Dysphagia, unspecified; Z85.3 Personal history of malignant neoplasm of breast; Z95.2 Presence of prosthetic heart valve; F17.200 Nicotine dependence, unspecified, uncomplicated; I25.2 Old myocardial infarction; I25.10 Atherosclerotic heart disease of native coronary artery without angina pectoris; Z95.1 Presence of aortocoronary bypass graft; J44.9 Chronic obstructive pulmonary disease, unspecified; E78.2 Mixed hyperlipidemia; K44.9 Diaphragmatic hernia without obstruction or gangrene; Z92.3 Personal history of irradiation; K22.2 Esophageal obstruction; R59.0 Localized enlarged lymph nodes; I10 Essential (primary) hypertension

== ENCOUNTER 2018-11-04 09:48 | Inpatient (IN) | payer OTHER ==
[2018-11-04 11:21] VITALS: BMI 21.7
[2018-11-04] MEDS: Albuterol-Ipratrop 3 mg / 0.5 (3 ml) UD INH SCH (19:25)
[2018-11-05] MEDS: Albuterol-Ipratrop 3 mg / 0.5 (3 ml) UD INH SCH ×4 (07:23→19:18)
--- NOTE | 2018-11-05 10:46 | CP.PCM.HP ---
History of Present Illness - History of Present Illness History of Present Illness: Pt admitted to TCU with inability to care for herself at home She had been discharged from [facility] on 11/02 She was discharged from 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 The mass is impinging on her esophagus causing an inability to swallow solid foods she is able to swallow liquids and pureed foods Consult: Dr Herb Humphries has already been given 1st dose of Chemotherapy on 10/31 PMH: CA Breast w/ Mastectomy [address] Benson (PENDING SALE TO [facility]) Radiation Tx AVR 2003 GI Bleed-Duodenal ulcer 12/08 Hypertension Hyperlipidemia Present on Admission - Present on Admission Any Indicators Present on Admission: No Review of Systems - Constitutional Constitutional: Fatigue - Gastrointestinal Gastrointestinal: Other Additional comments: Inability to swallow solid foods Past Patient History - Past Medical History & Family History Past Medical History?: Yes - Past Social History Smoking Status: Current Some Days Smoker - CARDIAC Hx Congestive Heart Failure: Yes Hx Hypercholesterolemia: Yes Hx Hypertension: Yes - PULMONARY Hx Bronchitis: Yes Hx Chronic Obstructive Pulmonary Disease (COPD): Yes - NEUROLOGICAL Hx Neurological Disorder: No - HEENT Hx HEENT Problems: No - RENAL Hx Chronic Kidney Disease: No - ENDOCRINE/METABOLIC Hx Endocrine Disorders: No - HEMATOLOGICAL/ONCOLOGICAL Hx Human Immunodeficiency Virus (HIV): No Other/Comment: esophageal ca, lung ca, breast ca with mastectomy - INTEGUMENTARY Hx Dermatological Problems: No - MUSCULOSKELETAL/RHEUMATOLOGICAL Hx Musculoskeletal Disorders: No Hx Falls: No - GASTROINTESTINAL Hx Gastrointestinal Disorders: Yes HX Swallowing Problems: Yes - GENITOURINARY/GYNECOLOGICAL Hx Genitourinary Disorders: No - PSYCHIATRIC Hx Psychophysiologic Disorder: No Hx Substance Use: No - SURGICAL HISTORY Hx Coronary Artery Bypass Graft: Yes - ANESTHESIA Hx Anesthesia: Yes Hx Anesthesia Reactions: No Hx Malignant Hyperthermia: No Meds Allergies/Adverse Reactions: Allergies Allergy/AdvReac Type Severity Reaction Status Date / Time No Known Allergies Allergy Verified 11/04/18 11:21 Physical Exam - Constitutional Appears: Cachectic, Chronically Ill - Head Exam Head Exam: NORMAL INSPECTION - Eye Exam Eye Exam: Normal appearance - Respiratory Exam Respiratory Exam: NORMAL BREATHING PATTERN - Cardiovascular Exam Cardiovascular Exam: Irregular Rhythm - GI/Abdominal Exam GI & Abdominal Exam: Normal Bowel Sounds Results - Vital Signs Recent Vital Signs: Last Vital Signs Temp 98.0 F 11/05/18 08:07 Pulse 73 11/05/18 09:47 Resp 20 11/05/18 08:07 BP 128/74 11/05/18 09:47 Pulse Ox 98 11/05/18 09:47 Assessment & Plan (1) Esophageal obstruction Status: Acute Priority: High (2) Pulmonary mass Assessment and Plan: Biopsy shows Metastatic CA from Breast Status: Acute Priority: High (3) Carcinoma of right lung Status: Suspected Priority: High (4) Essential (primary) hypertension Status: Acute (5) S/P AVR (aortic valve replacement) Status: Acute
[2018-11-05 12:30] LABS: BASO % 0.6 % (0.0-2.0); EOS # 0.1 K/uL (0.0-0.7); EOS % 1.5 % (0.0-4.0); HEMOGLOBIN 11.9 g/dL (12.0-16.0); LYMPH # 0.9 K/uL (1.0-4.3); MEAN CELL VOLUME 81.6 fl (81.0-99.0); MEAN CORPUSCULAR HEMOGLOBIN 25.8 pg (27.0-31.0); MEAN CORPUSCULAR HGB CONC 31.6 g/dL (33.0-37.0); MEAN PLATELET VOLUME 9.2 fl (7.2-11.7); MONO # 0.2 K/uL (0.0-0.8); NEUT # 7.3 K/uL (1.8-7.0); NEUT % 84.9 % (50.0-75.0); NRBC % 0.1 % (0.0-0.0); RBC 4.61 Mil/uL (3.80-5.20); RED CELL DISTRIBUTION WIDTH 19.7 % (11.5-14.5); WHITE BLOOD COUNT 8.6 K/uL (4.8-10.8)
[2018-11-05 12:43] LABS: BLOOD UREA NITROGEN 18 mg/dl (7-17); GFR NON-AFRICAN AMERICAN > 60
--- NOTE | 2018-11-05 15:49 | RAD ---
Date of service: 11/05/2018 HISTORY: Diahrrea COMPARISON: None available. FINDINGS: BOWEL: Nonobstructive bowel gas pattern. Opacifications are identified in the left upper quadrant likely related to splenic artery. BONES: Scoliotic lumbar spinal deformity. OTHER FINDINGS: Incidental note is made of prostatic cardiac valve at lower chest. IMPRESSION: Nonobstructive bowel gas pattern. No gross free intra peritoneal gas collection.
--- NOTE | 2018-11-05 16:00 | RAD ---
Date of service: 11/05/2018 HISTORY: congestion, aspiration COMPARISON: Portable chest 10/28/2018. TECHNIQUE: Chest PA and lateral FINDINGS: LUNGS: Interval right MediPort placement with tip terminating at the cavoatrial junction. Right apical opacity likely reflecting postobstructive atelectasis unchanged with right hilar prominence on change as well. No left-sided airspace disease. PLEURA: Limited right pleural effusion identified in the interval. None is seen the left. No pneumothorax bilaterally. CARDIOVASCULAR: No aortic atherosclerotic calcification present. Prosthetic cardiac valve identified with cardiac size stable. No pulmonary vascular congestion apparent. No pulmonary vascular congestion. OSSEOUS STRUCTURES: Sternotomy wires reiterated. VISUALIZED UPPER ABDOMEN: Normal. OTHER FINDINGS: None. IMPRESSION: Interval right MediPort deployment as discussed above. Post structure atelectasis is again seen the right upper lobe with marked volume loss. Right hilar lesion likely present. Minimal right pleural effusion not identified. Left lung clear. No pulmonary vascular congestion.
[2018-11-06] MEDS: Albuterol-Ipratrop 3 mg / 0.5 (3 ml) UD INH SCH ×5 (07:44→19:05)
--- NOTE | 2018-11-06 10:33 | CP.PCM.PN ---
Subjective - Date & Time of Evaluation Date of Evaluation: 11/06/18 Time of Evaluation: 10:20 - Subjective Subjective: This is a 83 yrs old female who is well known to me. She had a large mass in the mediastinum and this was obstructing the esophagus with extrinsic pressure . A biopsy was taken of the mass, and it was consistent with breast primary she had 10 yrs ago. She was started on chemotherapy with Paclitaxel and Carboplatin, but has a difficult time swallowing. She is getting weaker, and I felt that putting in a peg tube might help her.with her nutrition and help her with with the chemotherapy. She did not want to go back to the sub acute rehab and went home instead,She however wqas unable to take care of herself at home and was readmitted. Past h/o AVR 2003 Bleeding duodenal ulcer nov 2017 Hypertension Hyperlipidemia Objective - Vital Signs/Intake and Output Vital Signs (last 24 hours): Temp Pulse Resp BP Pulse Ox 97.7 F 66 20 109/68 95 11/06/18 08:57 11/06/18 09:12 11/06/18 08:57 11/06/18 09:12 11/06/18 08:57 - Medications Medications: Current Medications Acetaminophen (Tylenol 325mg Tab) 650 mg PO Q6 PRN PRN Reason: Pain, Mild (1-3) Albuterol/Ipratropium (Duoneb 3 Mg/0.5 Mg (3 Ml) Ud) 3 ml INH RQID [facility] Last Admin: 11/06/18 07:44 Dose: 3 ml Isosorbide Dinitrate (Isordil) 20 mg PO BID [facility] Last Admin: 11/06/18 09:12 Dose: 20 mg Loperamide HCl (Imodium) 2 mg PO Q4 PRN PRN Reason: Diarrhea Last Admin: 11/05/18 12:56 Dose: 2 mg Metoprolol Tartrate (Lopressor) 25 mg PO Q12 [facility] Last Admin: 11/06/18 09:12 Dose: 25 mg - Labs Labs: 11/05/18 12:10 11/05/18 12:10 - Additional Findings Additional findings: Physical exam; Alert,well oriented , very frail neck; supple, no adenopahy Chest; clear, no rales or rgonchi Heart; RSR,no murmur Abd; Soft, no mass, no h/s megaly Assessment and Plan - Assessment and Plan (Free Text) Assessment: impression; Metastatic breast cancer, to the mediastinum with extrinsic pressure on the esophagus. Inanition,weakness Plan: Plan; will request IR to put in a peg tube. Chemotherapy in 2 weeks.
--- NOTE | 2018-11-06 13:52 | CP.PCM.PN ---
Subjective - Date & Time of Evaluation Date of Evaluation: 11/06/18 Time of Evaluation: 11:00 - Subjective Subjective: Pt appears depressed does not know what she wants to do seems somewhat reluctant to have a PEG inserted told her to discuss with her daughter Her feeling is she does not want to do anything Objective - Vital Signs/Intake and Output Vital Signs (last 24 hours): Temp Pulse Resp BP Pulse Ox 97.7 F 66 20 109/68 95 11/06/18 08:57 11/06/18 09:12 11/06/18 08:57 11/06/18 09:12 11/06/18 08:57 - Medications Medications: Current Medications Acetaminophen (Tylenol 325mg Tab) 650 mg PO Q6 PRN PRN Reason: Pain, Mild (1-3) Albuterol/Ipratropium (Duoneb 3 Mg/0.5 Mg (3 Ml) Ud) 3 ml INH RQID [facility] Last Admin: 11/06/18 11:05 Dose: 3 ml Isosorbide Dinitrate (Isordil) 20 mg PO BID [facility] Last Admin: 11/06/18 09:12 Dose: 20 mg Loperamide HCl (Imodium) 2 mg PO Q4 PRN PRN Reason: Diarrhea Last Admin: 11/05/18 12:56 Dose: 2 mg Metoprolol Tartrate (Lopressor) 25 mg PO Q12 [facility] Last Admin: 11/06/18 09:12 Dose: 25 mg - Labs Labs: 11/05/18 12:10 11/05/18 12:10 Assessment and Plan (1) Esophageal obstruction Status: Acute (2) Pulmonary mass Status: Acute (3) Carcinoma of right lung Status: Suspected (4) Essential (primary) hypertension Status: Acute (5) S/P AVR (aortic valve replacement) Status: Acute
[2018-11-07] MEDS: Albuterol-Ipratrop 3 mg / 0.5 (3 ml) UD INH SCH ×4 (07:37→20:03)
--- NOTE | 2018-11-07 08:48 | CP.PCM.PN ---
Subjective - Date & Time of Evaluation Date of Evaluation: 11/07/18 Time of Evaluation: 08:45 - Subjective Subjective: Since yesterday pt has been swallowing better,She drank ensure,coffee an. Will check her CBC todayd yogurt without bringing it up. Will hold the Peg tube for now Objective - Vital Signs/Intake and Output Vital Signs (last 24 hours): Temp Pulse Resp BP Pulse Ox 98.2 F 55 L 18 110/73 97 11/07/18 08:17 11/07/18 08:41 11/07/18 08:17 11/07/18 08:41 11/07/18 08:17 - Medications Medications: Current Medications Acetaminophen (Tylenol 325mg Tab) 650 mg PO Q6 PRN PRN Reason: Pain, Mild (1-3) Albuterol/Ipratropium (Duoneb 3 Mg/0.5 Mg (3 Ml) Ud) 3 ml INH RQID [facility] Last Admin: 11/07/18 07:37 Dose: 3 ml Isosorbide Dinitrate (Isordil) 20 mg PO BID [facility] Last Admin: 11/07/18 08:40 Dose: 20 mg Loperamide HCl (Imodium) 2 mg PO Q4 PRN PRN Reason: Diarrhea Last Admin: 11/05/18 12:56 Dose: 2 mg Metoprolol Tartrate (Lopressor) 25 mg PO Q12 [facility] Last Admin: 11/07/18 08:41 Dose: 25 mg - Labs Labs: 11/05/18 12:10 11/05/18 12:10
[2018-11-07 10:03] LABS: BASO % 0.3 % (0.0-2.0); EOS # 0.1 K/uL (0.0-0.7); EOS % 1.1 % (0.0-4.0); HEMOGLOBIN 12.3 g/dL (12.0-16.0); LYMPH # 1.3 K/uL (1.0-4.3); LYMPH % 26.4 % (20.0-40.0); MEAN CELL VOLUME 81.9 fl (81.0-99.0); MEAN CORPUSCULAR HGB CONC 31.7 g/dL (33.0-37.0); MEAN PLATELET VOLUME 9.4 fl (7.2-11.7); MONO # 0.4 K/uL (0.0-0.8); MONO % 8.1 % (0.0-10.0); NEUT # 3.2 K/uL (1.8-7.0); NEUT % 64.1 % (50.0-75.0); NRBC % 0.1 % (0.0-0.0); RBC 4.75 Mil/uL (3.80-5.20); RED CELL DISTRIBUTION WIDTH 19.3 % (11.5-14.5)
[2018-11-07 10:20] LABS: ALBUMIN 3.4 g/dL (3.5-5.0); ALT/SGPT 23 U/L (9-52); AST/SGOT 19 U/L (14-36); BLOOD UREA NITROGEN 14 mg/dl (7-17); CALCIUM 9.4 mg/dL (8.4-10.2); GFR NON-AFRICAN AMERICAN > 60
--- NOTE | 2018-11-07 11:56 | CP.PCM.PN ---
Subjective - Date & Time of Evaluation Date of Evaluation: 11/07/18 Time of Evaluation: 10:00 - Subjective Subjective: Doing well tolerating liquids/pureed foods tolerates yogurt no PEG for now Objective - Vital Signs/Intake and Output Vital Signs (last 24 hours): Temp Pulse Resp BP Pulse Ox 98.2 F 55 L 18 110/73 97 11/07/18 08:17 11/07/18 08:41 11/07/18 08:17 11/07/18 08:41 11/07/18 08:17 - Medications Medications: Current Medications Acetaminophen (Tylenol 325mg Tab) 650 mg PO Q6 PRN PRN Reason: Pain, Mild (1-3) Albuterol/Ipratropium (Duoneb 3 Mg/0.5 Mg (3 Ml) Ud) 3 ml INH RQID [facility] Last Admin: 11/07/18 11:03 Dose: 3 ml Isosorbide Dinitrate (Isordil) 20 mg PO BID [facility] Last Admin: 11/07/18 08:40 Dose: 20 mg Loperamide HCl (Imodium) 2 mg PO Q4 PRN PRN Reason: Diarrhea Last Admin: 11/05/18 12:56 Dose: 2 mg Metoprolol Tartrate (Lopressor) 25 mg PO Q12 [facility] Last Admin: 11/07/18 08:41 Dose: 25 mg - Labs Labs: 11/07/18 08:33 11/07/18 08:33 Assessment and Plan (1) Esophageal obstruction Status: Acute (2) Pulmonary mass Status: Acute (3) Carcinoma of right lung Status: Suspected (4) Essential (primary) hypertension Status: Acute (5) S/P AVR (aortic valve replacement) Status: Acute
[2018-11-08] MEDS: Albuterol-Ipratrop 3 mg / 0.5 (3 ml) UD INH SCH ×4 (07:44→19:26)
--- NOTE | 2018-11-08 09:33 | CP.PCM.PN ---
Subjective - Date & Time of Evaluation Date of Evaluation: 11/08/18 Time of Evaluation: 09:28 - Subjective Subjective: Patient is tolerating the ensure better without vomiting . Have encouraged her to do her physical therapy daily. she says she will,but is a little depressed. Maybe will ask Dr Langston to consult the psychologist who comes on tuesday. Objective - Vital Signs/Intake and Output Vital Signs (last 24 hours): Temp Pulse Resp BP Pulse Ox 97.9 F 79 20 133/79 93 L 11/08/18 08:24 11/08/18 08:26 11/08/18 08:24 11/08/18 08:26 11/08/18 08:24 - Medications Medications: Current Medications Acetaminophen (Tylenol 325mg Tab) 650 mg PO Q6 PRN PRN Reason: Pain, Mild (1-3) Albuterol/Ipratropium (Duoneb 3 Mg/0.5 Mg (3 Ml) Ud) 3 ml INH RQID [facility] Last Admin: 11/08/18 07:44 Dose: 3 ml Isosorbide Dinitrate (Isordil) 20 mg PO BID [facility] Last Admin: 11/08/18 08:27 Dose: 20 mg Loperamide HCl (Imodium) 2 mg PO Q4 PRN PRN Reason: Diarrhea Last Admin: 11/05/18 12:56 Dose: 2 mg Metoprolol Tartrate (Lopressor) 25 mg PO Q12 [facility] Last Admin: 11/08/18 08:26 Dose: 25 mg - Labs Labs: 11/07/18 08:33 11/07/18 08:33
[2018-11-09] MEDS: Albuterol-Ipratrop 3 mg / 0.5 (3 ml) UD INH SCH ×4 (07:43→20:07)
--- NOTE | 2018-11-09 11:53 | CP.PCM.PN ---
Subjective - Date & Time of Evaluation Date of Evaluation: 11/09/18 Time of Evaluation: 10:00 - Subjective Subjective: Pt tolerating liquids and puree does not like the consistency of pureed foods Spoke at length with daughter yesterday concerned about life expectancy participates with PT Objective - Vital Signs/Intake and Output Vital Signs (last 24 hours): Temp Pulse Resp BP Pulse Ox 97.9 F 80 20 114/76 93 L 11/09/18 08:29 11/09/18 08:54 11/09/18 08:29 11/09/18 08:54 11/09/18 08:29 - Medications Medications: Current Medications Acetaminophen (Tylenol 325mg Tab) 650 mg PO Q6 PRN PRN Reason: Pain, Mild (1-3) Albuterol/Ipratropium (Duoneb 3 Mg/0.5 Mg (3 Ml) Ud) 3 ml INH RQID [facility] Last Admin: 11/09/18 07:43 Dose: 3 ml Isosorbide Dinitrate (Isordil) 20 mg PO BID [facility] Last Admin: 11/09/18 08:55 Dose: 20 mg Loperamide HCl (Imodium) 2 mg PO Q4 PRN PRN Reason: Diarrhea Last Admin: 11/05/18 12:56 Dose: 2 mg Metoprolol Tartrate (Lopressor) 25 mg PO Q12 [facility] Last Admin: 11/09/18 08:54 Dose: 25 mg - Labs Labs: 11/07/18 08:33 11/07/18 08:33 Assessment and Plan (1) Esophageal obstruction Status: Acute (2) Pulmonary mass Status: Acute (3) Carcinoma of right lung Status: Suspected (4) Essential (primary) hypertension Status: Acute (5) S/P AVR (aortic valve replacement) Status: Acute
--- NOTE | 2018-11-10 07:54 | CP.PCM.CON ---
History of Present Illness - History of Present Illness History of Present Illness: Pt is an 83 year olf female admitted to [facility] and referred to the play writer for evaluation. Med history positive for esphophageal CA, past breast CA. See medical record for complete medical history and medication list. Social His tory: Pt is and resides alone in [place]. She has three children, 2 in [place] and one in [place]. Pt reported positive relatiosnhips with her children and grandchildren (7). 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 Pt denied a psych history, pt denied a history of alc/sub abuse. Pt spoke of time spent prior to admission watching TV and spending time with friends. Pt denied depression at that time. Pt reported current depression with her medical status/CA, pt irritable, withdrawn, and frustrated. Support provided over her medical condition and strategies for coping introduced. MSE: pt alert, oriented x3, relevant/coherent, no psychosis, affect constricted, mood irritable, angry, no si no hi ideation. Dx: Depression Plan: Continued Sup therapy Psychopharmacological intervention to address her depression Thank you for this referral, Dr. Saucedo Past Patient History - Past Medical History & Family History Past Medical History?: Yes - Past Social History Smoking Status: Current Some Days Smoker - CARDIAC Hx Congestive Heart Failure: Yes Hx Hypercholesterolemia: Yes Hx Hypertension: Yes - PULMONARY Hx Bronchitis: Yes Hx Chronic Obstructive Pulmonary Disease (COPD): Yes - NEUROLOGICAL Hx Neurological Disorder: No - HEENT Hx HEENT Problems: No - RENAL Hx Chronic Kidney Disease: No - ENDOCRINE/METABOLIC Hx Endocrine Disorders: No - HEMATOLOGICAL/ONCOLOGICAL Hx Human Immunodeficiency Virus (HIV): No Other/Comment: esophageal ca, lung ca, breast ca with mastectomy - INTEGUMENTARY Hx Dermatological Problems: No - MUSCULOSKELETAL/RHEUMATOLOGICAL Hx Musculoskeletal Disorders: No Hx Falls: No - GASTROINTESTINAL Hx Gastrointestinal Disorders: Yes HX Swallowing Problems: Yes - GENITOURINARY/GYNECOLOGICAL Hx Genitourinary Disorders: No - PSYCHIATRIC Hx Psychophysiologic Disorder: No Hx Substance Use: No - SURGICAL HISTORY Hx Coronary Artery Bypass Graft: Yes - ANESTHESIA Hx Anesthesia: Yes Hx Anesthesia Reactions: No Hx Malignant Hyperthermia: No Meds Allergies/Adverse Reactions: Allergies Allergy/AdvReac Type Severity Reaction Status Date / Time No Known Allergies Allergy Verified 12/15/18 11:21 - Medications Medications: Current Medications Acetaminophen (Tylenol 325mg Tab) 650 mg PO Q6 PRN PRN Reason: Pain, Mild (1-3) Albuterol/Ipratropium (Duoneb 3 Mg/0.5 Mg (3 Ml) Ud) 3 ml INH RQID [facility] Last Admin: 11/09/18 20:07 Dose: Not Given Isosorbide Dinitrate (Isordil) 20 mg PO BID [facility] Last Admin: 11/09/18 16:18 Dose: 20 mg Loperamide HCl (Imodium) 2 mg PO Q4 PRN PRN Reason: Diarrhea Last Admin: 11/05/18 12:56 Dose: 2 mg Metoprolol Tartrate (Lopressor) 25 mg PO Q12 [facility] Last Admin: 11/09/18 20:50 Dose: 25 mg Results - Vital Signs Recent Vital Signs: Last Vital Signs Temp 98.2 F 11/09/18 19:41 Pulse 81 11/09/18 20:50 Resp 20 11/09/18 19:41 BP 102/65 11/09/18 20:50 Pulse Ox 94 L 11/09/18 19:41 - Labs Result Diagrams: 11/07/18 08:33 11/07/18 08:33
[2018-11-10] MEDS: Albuterol-Ipratrop 3 mg / 0.5 (3 ml) UD INH SCH ×4 (07:56→19:12)
--- NOTE | 2018-11-10 09:06 | CP.PCM.PN ---
Subjective - Date & Time of Evaluation Date of Evaluation: 11/10/18 Time of Evaluation: 09:04 - Subjective Subjective: P5t seems to be eating a little better,without any vomiting.She is also participating . Hopefully it will make her stronger. Objective - Vital Signs/Intake and Output Vital Signs (last 24 hours): Temp Pulse Resp BP Pulse Ox 98.2 F 88 20 114/80 94 L 11/09/18 19:41 11/10/18 08:22 11/09/18 19:41 11/10/18 08:22 11/09/18 19:41 - Medications Medications: Current Medications Acetaminophen (Tylenol 325mg Tab) 650 mg PO Q6 PRN PRN Reason: Pain, Mild (1-3) Albuterol/Ipratropium (Duoneb 3 Mg/0.5 Mg (3 Ml) Ud) 3 ml INH RQID [facility] Last Admin: 11/10/18 07:56 Dose: Not Given Isosorbide Dinitrate (Isordil) 20 mg PO BID [facility] Last Admin: 11/10/18 08:22 Dose: 20 mg Loperamide HCl (Imodium) 2 mg PO Q4 PRN PRN Reason: Diarrhea Last Admin: 11/05/18 12:56 Dose: 2 mg Metoprolol Tartrate (Lopressor) 25 mg PO Q12 [facility] Last Admin: 11/10/18 08:22 Dose: 25 mg - Labs Labs: 11/07/18 08:33 11/07/18 08:33
--- NOTE | 2018-11-10 10:54 | CP.PCM.PN ---
Subjective - Date & Time of Evaluation Date of Evaluation: 11/10/18 Time of Evaluation: 10:00 - Subjective Subjective: No complaints eating fairly well liquids / puree Objective - Vital Signs/Intake and Output Vital Signs (last 24 hours): Temp Pulse Resp BP Pulse Ox 97.7 F 88 20 114/80 93 L 11/10/18 10:26 11/10/18 10:26 11/10/18 10:26 11/10/18 10:26 11/10/18 10:26 - Medications Medications: Current Medications Acetaminophen (Tylenol 325mg Tab) 650 mg PO Q6 PRN PRN Reason: Pain, Mild (1-3) Albuterol/Ipratropium (Duoneb 3 Mg/0.5 Mg (3 Ml) Ud) 3 ml INH RQID [facility] Last Admin: 11/10/18 07:56 Dose: Not Given Isosorbide Dinitrate (Isordil) 20 mg PO BID [facility] Last Admin: 11/10/18 08:22 Dose: 20 mg Loperamide HCl (Imodium) 2 mg PO Q4 PRN PRN Reason: Diarrhea Last Admin: 11/05/18 12:56 Dose: 2 mg Metoprolol Tartrate (Lopressor) 25 mg PO Q12 [facility] Last Admin: 11/10/18 08:22 Dose: 25 mg - Labs Labs: 11/07/18 08:33 11/07/18 08:33 Assessment and Plan (1) Esophageal obstruction Status: Acute (2) Pulmonary mass Status: Acute (3) Carcinoma of right lung Status: Suspected (4) Essential (primary) hypertension Status: Acute (5) S/P AVR (aortic valve replacement) Status: Acute
[2018-11-11] MEDS: Albuterol-Ipratrop 3 mg / 0.5 (3 ml) UD INH SCH ×4 (08:33→19:19)
--- NOTE | 2018-11-11 10:35 | CP.PCM.PN ---
Subjective - Date & Time of Evaluation Date of Evaluation: 11/11/18 Time of Evaluation: 10:10 - Subjective Subjective: Sleepy, nurses report she was restless during night Ate pureed food Vital signs stable Seen by sychologist, rec Rx for depression Spoke with Dr. Amaya She will see pt tomorrow. Objective - Vital Signs/Intake and Output Vital Signs (last 24 hours): Temp Pulse Resp BP Pulse Ox 97.4 F L 89 18 112/76 96 11/11/18 08:00 11/11/18 08:21 11/11/18 08:00 11/11/18 08:21 11/11/18 08:00 - Medications Medications: Current Medications Acetaminophen (Tylenol 325mg Tab) 650 mg PO Q6 PRN PRN Reason: Pain, Mild (1-3) Albuterol/Ipratropium (Duoneb 3 Mg/0.5 Mg (3 Ml) Ud) 3 ml INH RQID [facility] Last Admin: 11/11/18 08:33 Dose: Not Given Isosorbide Dinitrate (Isordil) 20 mg PO BID [facility] Last Admin: 11/11/18 08:21 Dose: 20 mg Loperamide HCl (Imodium) 2 mg PO Q4 PRN PRN Reason: Diarrhea Last Admin: 11/05/18 12:56 Dose: 2 mg Metoprolol Tartrate (Lopressor) 25 mg PO Q12 [facility] Last Admin: 11/11/18 08:21 Dose: 25 mg - Labs Labs: 11/07/18 08:33 11/07/18 08:33
--- NOTE | 2018-11-11 10:59 | CP.PCM.PN ---
Subjective - Date & Time of Evaluation Date of Evaluation: 11/11/18 Time of Evaluation: 10:57 - Subjective Subjective: Pt claims she s eating better,but nurses say otherwise. She is however taking the Ensure 3 times a day. CBC has been stable. She will be seen by psych for depression Objective - Vital Signs/Intake and Output Vital Signs (last 24 hours): Temp Pulse Resp BP Pulse Ox 97.4 F L 89 18 112/76 96 11/11/18 08:00 11/11/18 08:21 11/11/18 08:00 11/11/18 08:21 11/11/18 08:00 - Medications Medications: Current Medications Acetaminophen (Tylenol 325mg Tab) 650 mg PO Q6 PRN PRN Reason: Pain, Mild (1-3) Albuterol/Ipratropium (Duoneb 3 Mg/0.5 Mg (3 Ml) Ud) 3 ml INH RQID [facility] Last Admin: 11/11/18 08:33 Dose: Not Given Isosorbide Dinitrate (Isordil) 20 mg PO BID [facility] Last Admin: 11/11/18 08:21 Dose: 20 mg Loperamide HCl (Imodium) 2 mg PO Q4 PRN PRN Reason: Diarrhea Last Admin: 11/05/18 12:56 Dose: 2 mg Metoprolol Tartrate (Lopressor) 25 mg PO Q12 [facility] Last Admin: 11/11/18 08:21 Dose: 25 mg - Labs Labs: 11/07/18 08:33 11/07/18 08:33
--- NOTE | 2018-11-12 07:29 | CP.PCM.CON ---
History of Present Illness - History of Present Illness History of Present Illness: Psychiatry consult note CC: Depression HPI: 83 yo female w/ metastatic breast cancer, admitted to TCU for further treatment as patient is unable to care for herself at home and has poor appetite/sleep and periods of irritability as per report. Patient is currently uncooperative with interview, when asked if we could speak she angrily stated "Let's get this over with." When asked is she hears voices she said "why would I hear voices, what kind of question is that?" When asked if she wanted treatment with antidepressants she angrily stated "NO!" Patient currently A + O x 3. She denies AH/VH/SI/HI. She denies any passive desire to . PMHx: Metastatic Breast CA, AVR 2003, GI Bleed- Duodenal ulcer 12/08, HTN, HLD PPHx: No current psychiatric treatment ALL: NKDA Impression: 83 yo female w/ adjustment disorder w/ depressed mood vs MDD. Patient is not agreeable to treatment with antidepressants at this time. -If patient becomes agreeable, would recommend treatment with Remeron 7.5 mg PO HS -No acute inpatient psychiatric admission indicated at this time Past Patient History - Past Medical History & Family History Past Medical History?: Yes - Past Social History Smoking Status: Current Some Days Smoker - CARDIAC Hx Congestive Heart Failure: Yes Hx Hypercholesterolemia: Yes Hx Hypertension: Yes - PULMONARY Hx Bronchitis: Yes Hx Chronic Obstructive Pulmonary Disease (COPD): Yes - NEUROLOGICAL Hx Neurological Disorder: No - HEENT Hx HEENT Problems: No - RENAL Hx Chronic Kidney Disease: No - ENDOCRINE/METABOLIC Hx Endocrine Disorders: No - HEMATOLOGICAL/ONCOLOGICAL Hx Human Immunodeficiency Virus (HIV): No Other/Comment: esophageal ca, lung ca, breast ca with mastectomy - INTEGUMENTARY Hx Dermatological Problems: No - MUSCULOSKELETAL/RHEUMATOLOGICAL Hx Musculoskeletal Disorders: No Hx Falls: No - GASTROINTESTINAL Hx Gastrointestinal Disorders: Yes HX Swallowing Problems: Yes - GENITOURINARY/GYNECOLOGICAL Hx Genitourinary Disorders: No - PSYCHIATRIC Hx Psychophysiologic Disorder: No Hx Substance Use: No - SURGICAL HISTORY Hx Coronary Artery Bypass Graft: Yes - ANESTHESIA Hx Anesthesia: Yes Hx Anesthesia Reactions: No Hx Malignant Hyperthermia: No Meds Allergies/Adverse Reactions: Allergies Allergy/AdvReac Type Severity Reaction Status Date / Time No Known Allergies Allergy Verified 11/04/18 11:21 - Medications Medications: Current Medications Acetaminophen (Tylenol 325mg Tab) 650 mg PO Q6 PRN PRN Reason: Pain, Mild (1-3) Albuterol/Ipratropium (Duoneb 3 Mg/0.5 Mg (3 Ml) Ud) 3 ml INH RQID [facility] Last Admin: 11/11/18 19:19 Dose: 3 ml Isosorbide Dinitrate (Isordil) 20 mg PO BID [facility] Last Admin: 11/11/18 16:54 Dose: 20 mg Loperamide HCl (Imodium) 2 mg PO Q4 PRN PRN Reason: Diarrhea Last Admin: 11/05/18 12:56 Dose: 2 mg Metoprolol Tartrate (Lopressor) 25 mg PO Q12 [facility] Last Admin: 11/11/18 20:23 Dose: 25 mg Results - Vital Signs Recent Vital Signs: Last Vital Signs Temp 98.1 F 11/11/18 20:13 Pulse 96 H 11/11/18 20:23 Resp 20 11/11/18 20:13 BP 105/66 11/11/18 20:23 Pulse Ox 94 L 11/11/18 20:13 - Labs Result Diagrams: 11/07/18 08:33 11/07/18 08:33
[2018-11-12] MEDS: Albuterol-Ipratrop 3 mg / 0.5 (3 ml) UD INH SCH ×4 (07:50→19:40)
[2018-11-13] MEDS: Albuterol-Ipratrop 3 mg / 0.5 (3 ml) UD INH SCH ×4 (07:26→19:01)
--- NOTE | 2018-11-13 10:33 | CP.PCM.PN ---
Subjective - Date & Time of Evaluation Date of Evaluation: 11/13/18 Time of Evaluation: 10:27 - Subjective Subjective: Pt is feeling better today ,She was in the physical therapy room getting therapy. Refuses psychiatric therapy. She will receive the next dose of chemo on nov 22. Objective - Vital Signs/Intake and Output Vital Signs (last 24 hours): Temp Pulse Resp BP Pulse Ox 97.5 F L 93 H 18 102/70 97 11/13/18 08:26 11/13/18 08:26 11/13/18 08:26 11/13/18 08:26 11/13/18 08:26 - Medications Medications: Current Medications Acetaminophen (Tylenol 325mg Tab) 650 mg PO Q6 PRN PRN Reason: Pain, Mild (1-3) Albuterol/Ipratropium (Duoneb 3 Mg/0.5 Mg (3 Ml) Ud) 3 ml INH RQID [facility] Last Admin: 11/13/18 07:26 Dose: Not Given Isosorbide Dinitrate (Isordil) 20 mg PO BID [facility] Last Admin: 11/13/18 08:15 Dose: 20 mg Loperamide HCl (Imodium) 2 mg PO Q4 PRN PRN Reason: Diarrhea Last Admin: 11/05/18 12:56 Dose: 2 mg Metoprolol Tartrate (Lopressor) 25 mg PO Q12 [facility] Last Admin: 11/13/18 08:14 Dose: 25 mg - Labs Labs: 11/07/18 08:33 11/07/18 08:33
--- NOTE | 2018-11-13 12:37 | CP.PCM.PN ---
Subjective - Date & Time of Evaluation Date of Evaluation: 11/13/18 Time of Evaluation: 10:50 - Subjective Subjective: Was seen by Psyciatrist, who reccommended Remeron for depression Pt disinclined to take it Have explained at length in presence of her daughter the need for Rx Pt does not like purred food and can not swollow chopped food Need for preserving adequate nutrition under present circumstances explained Pt promises to start taking "protei shakes" Vital signs stable. Objective - Vital Signs/Intake and Output Vital Signs (last 24 hours): Temp Pulse Resp BP Pulse Ox 97.5 F L 93 H 18 102/70 97 11/13/18 08:26 11/13/18 08:26 11/13/18 08:26 11/13/18 08:26 11/13/18 08:26 - Medications Medications: Current Medications Acetaminophen (Tylenol 325mg Tab) 650 mg PO Q6 PRN PRN Reason: Pain, Mild (1-3) Albuterol/Ipratropium (Duoneb 3 Mg/0.5 Mg (3 Ml) Ud) 3 ml INH RQID [facility] Last Admin: 11/13/18 11:28 Dose: 3 ml Isosorbide Dinitrate (Isordil) 20 mg PO BID [facility] Last Admin: 11/13/18 08:15 Dose: 20 mg Loperamide HCl (Imodium) 2 mg PO Q4 PRN PRN Reason: Diarrhea Last Admin: 11/05/18 12:56 Dose: 2 mg Metoprolol Tartrate (Lopressor) 25 mg PO Q12 [facility] Last Admin: 11/13/18 08:14 Dose: 25 mg - Labs Labs: 11/07/18 08:33 11/07/18 08:33
[2018-11-14] MEDS: Albuterol-Ipratrop 3 mg / 0.5 (3 ml) UD INH SCH ×4 (07:52→19:26)
[2018-11-15] MEDS: Albuterol-Ipratrop 3 mg / 0.5 (3 ml) UD INH SCH ×5 (07:15→19:30)
--- NOTE | 2018-11-15 09:37 | CP.PCM.PN ---
Subjective - Date & Time of Evaluation Date of Evaluation: 11/15/18 Time of Evaluation: 09:33 - Subjective Subjective: Pt is very weak, because she eats very little, not because she cannot swallow but because she is depressed. she however refuses the medication prescribed for the depression by the psychiatrist, Objective - Vital Signs/Intake and Output Vital Signs (last 24 hours): Temp Pulse Resp BP Pulse Ox 97.6 F 101 H 19 122/85 95 11/15/18 08:18 11/15/18 08:18 11/15/18 08:18 11/15/18 08:18 11/15/18 08:18 - Medications Medications: Current Medications Acetaminophen (Tylenol 325mg Tab) 650 mg PO Q6 PRN PRN Reason: Pain, Mild (1-3) Albuterol/Ipratropium (Duoneb 3 Mg/0.5 Mg (3 Ml) Ud) 3 ml INH RQID [facility] Last Admin: 11/15/18 07:15 Dose: 3 ml Isosorbide Dinitrate (Isordil) 20 mg PO BID [facility] Last Admin: 11/15/18 08:14 Dose: 20 mg Loperamide HCl (Imodium) 2 mg PO Q4 PRN PRN Reason: Diarrhea Last Admin: 11/05/18 12:56 Dose: 2 mg Metoprolol Tartrate (Lopressor) 25 mg PO Q12 [facility] Last Admin: 11/15/18 08:13 Dose: 25 mg - Labs Labs: 11/07/18 08:33 11/07/18 08:33
--- NOTE | 2018-11-15 15:23 | CP.PCM.PN ---
Subjective - Date & Time of Evaluation Date of Evaluation: 11/15/18 Time of Evaluation: 10:00 - Subjective Subjective: pt doing fairly well she can swallow liquids / Ensure / pureed foods but she refuses to take in the prescribed amounts of Ensure / Liquids she doesnt like the pureed foods; so she doesn't eat it tried to explain to her the importance of nutrition; but still will not take in anymore. Reluctantly participates w/ PT Objective - Vital Signs/Intake and Output Vital Signs (last 24 hours): Temp Pulse Resp BP Pulse Ox 98.4 F 96 H 20 109/72 99 11/15/18 15:15 11/15/18 15:15 11/15/18 15:15 11/15/18 15:15 11/15/18 15:15 - Medications Medications: Current Medications Acetaminophen (Tylenol 325mg Tab) 650 mg PO Q6 PRN PRN Reason: Pain, Mild (1-3) Albuterol/Ipratropium (Duoneb 3 Mg/0.5 Mg (3 Ml) Ud) 3 ml INH RQID [facility] Last Admin: 11/15/18 15:06 Dose: 3 ml Isosorbide Dinitrate (Isordil) 20 mg PO BID [facility] Last Admin: 11/15/18 08:14 Dose: 20 mg Loperamide HCl (Imodium) 2 mg PO Q4 PRN PRN Reason: Diarrhea Last Admin: 11/05/18 12:56 Dose: 2 mg Metoprolol Tartrate (Lopressor) 25 mg PO Q12 [facility] Last Admin: 11/15/18 08:13 Dose: 25 mg - Labs Labs: 11/07/18 08:33 11/07/18 08:33 Assessment and Plan (1) Esophageal obstruction Status: Acute (2) Pulmonary mass Status: Acute (3) Carcinoma of right lung Status: Suspected (4) Essential (primary) hypertension Status: Acute (5) S/P AVR (aortic valve replacement) Status: Acute
[2018-11-15 21:03] VITALS: O2SAT 96
[2018-11-16 06:27] LABS: BLOOD UREA NITROGEN 19 mg/dl (7-17); CALCIUM 9.7 mg/dL (8.4-10.2); GFR NON-AFRICAN AMERICAN > 60
[2018-11-16 06:43] LABS: BASO # 0.1 K/uL (0.0-0.2); BASO % 0.9 % (0.0-2.0); EOS # 0.1 K/uL (0.0-0.7); EOS % 1.9 % (0.0-4.0); HEMOGLOBIN 11.9 g/dL (12.0-16.0); LYMPH # 1.1 K/uL (1.0-4.3); LYMPH % 16.2 % (20.0-40.0); MEAN CELL VOLUME 81.6 fl (81.0-99.0); MEAN CORPUSCULAR HGB CONC 31.9 g/dL (33.0-37.0); MEAN PLATELET VOLUME 8.6 fl (7.2-11.7); MONO # 0.9 K/uL (0.0-0.8); MONO % 13.3 % (0.0-10.0); NEUT # 4.7 K/uL (1.8-7.0); NEUT % 67.7 % (50.0-75.0); NRBC % 0.1 % (0.0-0.0); RBC 4.56 Mil/uL (3.80-5.20); RED CELL DISTRIBUTION WIDTH 18.5 % (11.5-14.5); WHITE BLOOD COUNT 6.9 K/uL (4.8-10.8)
[2018-11-16] MEDS: Albuterol-Ipratrop 3 mg / 0.5 (3 ml) UD INH SCH ×2 (07:58→11:16)
[2018-11-16 08:07] VITALS: BP 104/68; PULSE 96; RESP 18; TEMP 97.4
--- NOTE | 2018-11-16 10:52 | CP.PCM.PN ---
Subjective - Date & Time of Evaluation Date of Evaluation: 11/16/18 Time of Evaluation: 10:49 - Subjective Subjective: Pt is swallowing pureed food and ensure.She however eats very little, and is very frail, she has already received 1 dose of chemotherapy, and blood counts are normal. She is being discharged to [facility] today, and will return on Nov 22 for te next dose of chemo. Objective - Vital Signs/Intake and Output Vital Signs (last 24 hours): Temp Pulse Resp BP Pulse Ox 97.4 F L 96 H 18 104/68 96 11/16/18 08:06 11/16/18 08:06 11/16/18 08:06 11/16/18 08:06 11/16/18 08:06 - Medications Medications: Current Medications Acetaminophen (Tylenol 325mg Tab) 650 mg PO Q6 PRN PRN Reason: Pain, Mild (1-3) Albuterol/Ipratropium (Duoneb 3 Mg/0.5 Mg (3 Ml) Ud) 3 ml INH RQID [facility] Last Admin: 11/16/18 07:58 Dose: 3 ml Isosorbide Dinitrate (Isordil) 20 mg PO BID [facility] Last Admin: 11/16/18 08:07 Dose: 20 mg Loperamide HCl (Imodium) 2 mg PO Q4 PRN PRN Reason: Diarrhea Last Admin: 11/05/18 12:56 Dose: 2 mg Metoprolol Tartrate (Lopressor) 25 mg PO Q12 [facility] Last Admin: 11/16/18 08:07 Dose: 25 mg - Labs Labs: 11/16/18 05:32 11/16/18 05:32
--- NOTE | 2018-11-16 15:50 | CP.PCM.DIS ---
Provider - Provider Date of Admission: 11/04/18 11:22 Attending physician: Olaf Langston MD Primary care physician: Taylor Langston Consults: 11/04/18 11:22 Case Management Referral Routine Comment: Physician Instructions: Reason For Exam: Reason for Referral: Discharge Planning 11/04/18 12:07 Nursing Referral for Wound Care Routine Comment: Physician Instructions: Reason For Exam: admission 11/08/18 10:33 Psychology Consult Routine Comment: Consulting Provider: Naomy Saucedo Consulting Physician: Naomy Saucedo Reason for Consult: depression 11/11/18 10:26 Psychiatry Consult Routine Comment: Evaluate and treat Consulting Provider: Yanique Amaya Consulting Physician: Yanique Amaya Reason for Consult: Depression Time Spent in preparation of Discharge (in minutes): 45 Diagnosis - Discharge Diagnosis (1) Esophageal obstruction Status: Acute Priority: High (2) Pulmonary mass Status: Acute Priority: High (3) Carcinoma of right lung Status: Suspected Priority: High (4) Essential (primary) hypertension Status: Acute (5) S/P AVR (aortic valve replacement) Status: Acute Hospital Course - Lab Results Lab Results: Most Recent Lab Values WBC 6.9 K/uL (4.8-10.8) 11/16/18 05:32 RBC 4.56 Mil/uL (3.80-5.20) 11/16/18 05:32 Hgb 11.9 g/dL (12.0-16.0) L 11/16/18 05:32 Hct 37.2 % (34.0-47.0) 11/16/18 05:32 MCV 81.6 fl (81.0-99.0) 11/16/18 05:32 MCH 26.0 pg (27.0-31.0) L 11/16/18 05:32 MCHC 31.9 g/dL (33.0-37.0) L 11/16/18 05:32 RDW 18.5 % (11.5-14.5) H 11/16/18 05:32 Plt Count 216 K/uL (130-400) D 11/16/18 05:32 MPV 8.6 fl (7.2-11.7) 11/16/18 05:32 Neut % (Auto) 67.7 % (50.0-75.0) 11/16/18 05:32 Lymph % (Auto) 16.2 % (20.0-40.0) L 11/16/18 05:32 [place] % (Auto) 13.3 % (0.0-10.0) H 11/16/18 05:32 Eos % (Auto) 1.9 % (0.0-4.0) 11/16/18 05:32 Baso % (Auto) 0.9 % (0.0-2.0) 11/16/18 05:32 Neut # (Auto) 4.7 K/uL (1.8-7.0) 11/16/18 05:32 Lymph # (Auto) 1.1 K/uL (1.0-4.3) 11/16/18 05:32 [place] # (Auto) 0.9 K/uL (0.0-0.8) H 11/16/18 05:32 Eos # (Auto) 0.1 K/uL (0.0-0.7) 11/16/18 05:32 Baso # (Auto) 0.1 K/uL (0.0-0.2) 11/16/18 05:32 Sodium 140 mmol/l (132-148) 11/16/18 05:32 Potassium 4.0 MMOL/L (3.6-5.0) 11/16/18 05:32 Chloride 102 mmol/L (98-107) 11/16/18 05:32 Carbon Dioxide 30 mmol/L (22-30) 11/16/18 05:32 Anion Gap 12 (10-20) 11/16/18 05:32 BUN 19 mg/dl (7-17) H 11/16/18 05:32 Creatinine 0.6 mg/dl (0.7-1.2) L 11/16/18 05:32 Est GFR ( Amer) > 60 11/16/18 05:32 Est GFR (Non-Af Amer) > 60 11/16/18 05:32 Random Glucose 118 mg/dL (65-105) H 11/16/18 05:32 Calcium 9.7 mg/dL (8.4-10.2) 11/16/18 05:32 Total Bilirubin 0.6 mg/dl (0.2-1.3) 11/07/18 08:33 AST 19 U/L (14-36) 11/07/18 08:33 ALT 23 U/L (9-52) 11/07/18 08:33 Alkaline Phosphatase 89 U/L (38-126) 11/07/18 08:33 Total Protein 6.7 G/DL (6.3-8.2) 11/07/18 08:33 Albumin 3.4 g/dL (3.5-5.0) L 11/07/18 08:33 Globulin 3.3 gm/dL (2.2-3.9) 11/07/18 08:33 Albumin/Globulin Ratio 1.0 (1.0-2.1) 11/07/18 08:33 - Hospital Course Hospital Course: Pt admitted to TCU with inability to care for herself at home She had been discharged from [facility] on 11/02 She was discharged from [facility] 11/02/2018 Pt had been found to have a large right Pulmonary mass Biopsy showed: Metastatic CA from Breast The mass is impinging on her esophagus causing an inability to swallow solid foods she is able to swallow liquids and pureed foods Consult: Dr Herb Humphries has already been given 1st dose of Chemotherapy on 10/31 PMH: CA Breast w/ Mastectomy [address] Benson ([facility]) Radiation Tx AVR 2003 GI Bleed-Duodenal ulcer 12/08 Hypertension Hyperlipidemia - Date & Time of H&P Date of H&P: 11/16/18 Time of H&P: 15:49 Discharge Exam - Head Exam Head Exam: NORMAL INSPECTION - Respiratory Exam Respiratory Exam: NORMAL BREATHING PATTERN - Cardiovascular Exam Cardiovascular Exam: Irregular Rhythm Discharge Plan - Follow Up Plan Disposition: REHAB FACILITY/REHAB UNIT Instructions: Preventing Falls, Lung Cancer (DC) Referrals: Olaf Langston MD [Staff Provider] - Tiffanie Humphries MD [Family Provider] - Angelo Manuel MD [Staff Provider] -
== END 2018-11-16 12:30 | DRG 181 ==
LOC: H.TCU 11:22
PROVIDERS: ADMIT Internal Medicine Cardiovascular Disease; ATTEND Internal Medicine Cardiovascular Disease
PROC: F07Z9FZ Gait Training/Functional Ambulation Treatment using Assistive, Adaptive, Supportive or Protective Equipment (ICD-10-PCS; principal; 2018-11-04)
PROC: F08Z4FZ Home Management Treatment using Assistive, Adaptive, Supportive or Protective Equipment (ICD-10-PCS; 2018-11-04)
PROC: F07K6FZ Therapeutic Exercise Treatment of Musculoskeletal System - Upper Back / Upper Extremity using Assistive, Adaptive, Supportive or Protective Equipment (ICD-10-PCS; 2018-11-05)
PROC: F06ZDMZ Swallowing Dysfunction Treatment using Augmentative / Alternative Communication Equipment (ICD-10-PCS; 2018-11-05)
DX: C78.01 Secondary malignant neoplasm of right lung (principal); C78.1 Secondary malignant neoplasm of mediastinum; K22.2 Esophageal obstruction; F43.21 Adjustment disorder with depressed mood; I11.0 Hypertensive heart disease with heart failure; I50.9 Heart failure, unspecified; J44.9 Chronic obstructive pulmonary disease, unspecified; E78.5 Hyperlipidemia, unspecified; E78.00 Pure hypercholesterolemia, unspecified; Z66 Do not resuscitate; Z85.3 Personal history of malignant neoplasm of breast; Z95.2 Presence of prosthetic heart valve; Z90.10 Acquired absence of unspecified breast and nipple; Z92.3 Personal history of irradiation; Z95.1 Presence of aortocoronary bypass graft; Z87.891 Personal history of nicotine dependence; Z87.11 Personal history of peptic ulcer disease